=== PATIENT | female | born 1960 | race Caucasian/White ===

== ENCOUNTER 2022-03-26 16:37 | Emergency (ER) | payer BC, SELFPAY ==
--- NOTE | ~2022-03-26 | XR_ITS ---
EXAM: XR knee RT min 4V DATE: 03/26/2022 17:14 HISTORY: TWISTED RT KNEE, PAIN LATERAL AND MEDIAL . COMPARISON: None available. FINDINGS: Normal mineralization. No fracture or dislocation. No lytic or blastic lesion. Severe tric ompartmental right knee osteoarthritis. Small right knee effusion. No erosion or periosteal change. S oft tissues within normal limits. IMPRESSION: No acute osseous finding in the right knee. Reviewed, dictated and finalized at location K.
[2022-03-26 16:49] VITALS: BP 141/87; PULSE 92; RESP 18; TEMP 36.4; O2SAT 96
--- NOTE | 2022-03-26 16:53 | ED.EXTPRO ---
HPI - Extremity Problem General Chief complaint: Extremity Problem,Nontraumatic Stated complaint: Right Knee and Leg Time Seen by Provider: 03/26/22 16:53 Source: patient Mode of arrival: ambulatory Limitations: no limitations History of Present Illness HPI Narrative: 61 yo F presents with pain to R knee, lateral aspect. Ambulatory with limp. Pt states she was walking through parking lot at work and twisted R knee. States hx of knee pain, arthritis. Has been told she needs knee replacement. Pt moved here approx. 1 yr ago. Does not have PCP or ortho here. Requesting x-ray of R knee. all systems reviewed and negative except as noted above. Related Data Allergies Allergy/AdvReac Type Severity Reaction Status Date / Time hydrocodone Allergy Itching Verified 03/26/22 17:02 Review of Systems Review of Systems: CONSTITUTIONAL: Denies fever, chills, or sweats. EYES: Denies visual changes, redness, or discharge. ENT: Denies rhinorrhea, congestion, sore throat, or otalgia. CARDIOVASCULAR: Denies chest pain, palpitations, or edema. RESPIRATORY: Denies cough or dyspnea. GASTROINTESTINAL: Denies abdominal pain, nausea, vomiting, or diarrhea. GENITOURINARY: Denies dysuria or hematuria. SKIN: Denies rash or itching. MUSCULOSKELETAL: Denies back pain or myalgia. Reports pain and swelling to right knee. NEUROLOGIC: Denies headache, numbness, or weakness. PSYCHIATRIC: Denies anxiety or depression. All other systems reviewed are negative, except as documented in HPI. PMFSH Comments At time of signature, agree with nursing past medical, surgical, social and family history. There is no relevant family history pertinent to the presenting complaint. Exam Narrative: GENERAL: This is a well-nourished, well-developed patient, in no apparent distress. HEAD: normocephalic, atraumatic. EYES: PERRL. Sclera clear/white. Vision is grossly intact. EARS: External ears normal NOSE: External nose normal NECK: Neck supple, non-tender without lymphadenopathy, masses or thyromegaly. CARDIOVASCULAR: Regular rate and rhythm without murmurs, gallops, or rubs. RESPIRATORY: Clear to auscultation. Breath sounds equal bilaterally. No wheezes, rales, or rhonchi. SKIN: warm, Dry, intact with no suspicious lesions or rash, good texture and turgor. NEURO: awake, alert, and oriented to person, place and time. There were no obvious focal neurologic abnormalities. EXTREMITIES: Tenderness to R knee, lateral aspect. mild swelling. No instability. Course Course Level of Care: Express Care Visit Vital Signs Vital signs: Vital Signs Temperature 36.4 C L 03/26/22 16:49 Pulse Rate 92 03/26/22 16:49 Respiratory Rate 18 03/26/22 16:49 Blood Pressure 141/87 H 03/26/22 16:49 Pulse Oximetry 96 03/26/22 16:49 Oxygen Delivery Room Air 03/26/22 16:49 Temperature 36.4 C L 03/26/22 16:49 Pulse Rate 92 03/26/22 16:49 Respiratory Rate 18 03/26/22 16:49 Blood Pressure 141/87 H 03/26/22 16:49 Pulse Oximetry 96 03/26/22 16:49 Oxygen Delivery Room Air 03/26/22 16:49 Reviewed MDM - Extremity (Nontraumatic) MDM Narrative Medical decision making narrative: Patient is aware of diagnosis, understands and agrees to treatment plan. Anticipatory guidance given. Patient agrees to follow-up as directed and is aware of reasons to seek care at the emergency department. Portions of this record may have been created with voice recognition software discussed x-ray results with pt. referred to ortho for further evaluation of R knee pain. Imaging Data My impression: agree with radiologist Radiologist's impression: EXAM:? XR knee RT min 4V DATE: 03/26/2022 17:14 HISTORY: TWISTED RT KNEE, PAIN LATERAL AND MEDIAL . COMPARISON:? None available. FINDINGS:? Normal mineralization. No fracture or dislocation. No lytic or blastic lesion. Severe tricompartmental right knee osteoarthritis. Small right knee effusion. No erosion or periosteal acevedo
== END 2022-03-26 17:35 | disposition home or self-care (01) ==
PROVIDERS: Emergency Provider Nurse Practitioner Family
DX: S83.91XA Sprain of unspecified site of right knee, initial encounter (principal); X50.9XXA Other and unspecified overexertion or strenuous movements or postures, initial encounter; M17.11 Unilateral primary osteoarthritis, right knee; Z85.3 Personal history of malignant neoplasm of breast
CPT/HCPCS: 73564; 99203; G0463

== ENCOUNTER 2022-08-17 08:47 | Outpatient (CLI) | payer BC, SELFPAY ==
--- NOTE | ~2022-08-17 | MM_ITS ---
EXAMINATION: MM diagnostic chanelle BI w tera HISTORY: History of left lumpectomy, benign. Screening. TECHNIQUE: ML, MLO and craniocaudal 3-D tomosynthesis images of both breasts were performed and synth etic 2-D images were generated. CAD analysis was submitted and interpreted. COMPARISON: 03/19/2020bilateral diagnostic mammogram, 09/01/2019right diagnostic mammogram 03/05/2018 bilateral screening mammogram BREAST PARENCHYMAL COMPOSITION: The breasts are heterogeneously dense, which may obscure small masses . FINDINGS: Surgical clip is noted in the upper outer left breast. Scattered bilateral benign microcalcifications. No suspicious mass or architectural distortion, malig nant calcification, skin thickening or retraction or significant new or developing density is detecte d. IMPRESSION: 1. No mammographic evidence of malignancy 2. Routine annual mammographic screening is recommended. BI-RADS Category 2: Benign finding(s). Reviewed, dictated and finalized at location A. 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
== END 2022-08-17 08:48 ==
LOC: MICIMG 08:49
PROVIDERS: PCP Internal Medicine; Visit Provider Internal Medicine
DX: Z12.31 Encounter for screening mammogram for malignant neoplasm of breast (principal); Z90.12 Acquired absence of left breast and nipple; R92.8 Other abnormal and inconclusive findings on diagnostic imaging of breast
CPT/HCPCS: 77062; 77066; G0279

== ENCOUNTER 2022-08-19 13:19 | Emergency (ER) | payer BC, SELFPAY ==
[2022-08-19 14:52] VITALS: BP 149/81; PULSE 77; RESP 18; TEMP 36.5; O2SAT 97
--- NOTE | 2022-08-19 16:21 | ED.GENADULT ---
HPI - General Adult General Chief complaint: Upper Respiratory Infection Stated complaint: uri Time Seen by Provider: 08/19/22 16:21 Source: patient Mode of arrival: ambulatory Limitations: no limitations History of Present Illness HPI narrative: 61-year-old female patient presents to the [facility] with complaints of upper respiratory infection symptoms. Patient states she has had symptoms since August 11. Patient states she has had a fever for about 2 days that finally broke when she 1st started having symptoms along with congestion, cough, chills, body aches and runny nose. Patient states symptoms have mostly resolved but continued to have a cough and some chest congestion. Patient states she is coughing up green sputum at times. Denies any fevers, body aches or chills at this time. Patient states she has been taking [id number]-tznjkde DayQuil and NyQuil for her symptoms. Denies smoking Related Data Allergies Allergy/AdvReac Type Severity Reaction Status Date / Time hydrocodone Allergy Itching Verified 08/19/22 15:16 Review of Systems Review of Systems: CONSTITUTIONAL: Positive fever, body aches and chills, or sweats. EYES: Denies visual changes, redness, or discharge. ENT: Positive rhinorrhea, congestion, denies sore throat, or otalgia. CARDIOVASCULAR: Denies chest pain, palpitations, or edema. RESPIRATORY: Positive cough, denies dyspnea. GASTROINTESTINAL: Denies abdominal pain, nausea, vomiting, or diarrhea. GENITOURINARY: Denies dysuria or hematuria. SKIN: Denies rash or itching. MUSCULOSKELETAL: Denies back pain, joint pain, or myalgia. NEUROLOGIC: Denies headache, numbness, or weakness. PSYCHIATRIC: Denies anxiety or depression. [facility] Past Medical History Medical History Cataract Osteoarthritis Surgical History Surgical History H/O mastectomy History of hysterectomy History of lung surgery Social History Social History Smoking status: Never smoker Alcohol intake: current Substance use: never Comments At the time of my signature I agree with nursing past medical history, surgical, social, and family history. There is no relevant family history pertinent to the presenting complaint. Exam Narrative: GENERAL: Well-appearing, well-nourished, and in no acute distress. HEAD: Normocephalic, atraumatic. EYES: PERRLA and EOMI. ENT: Nares with erythema edema noted bilaterally, no rhinorrhea or epistaxis. Mucous membranes moist. Posterior pharynx with no erythema, tonsillar enlargement, exudates or lesions present. Bilateral TMs are clear no erythema or foreign bodies the canal. NECK: Supple. No lymphadenopathy CHEST: Clear to auscultation. No respiratory distress. Patient able to talk in clear complete sentences. HEART: Regular rate and rhythm. No murmur heard. Normal peripheral pulses. ABDOMEN: Soft, nontender, nondistended, normal active bowel sounds. EXTREMITIES: Normal range of motion. No edema. SKIN: Warm, dry, no rash. NEURO: No focal deficits. Alert and oriented x3. Course Course Level of Care: Express Care Visit Vital Signs Vital signs: Vital Signs Temperature 36.5 C 08/19/22 14:52 Pulse Rate 77 08/19/22 14:52 Respiratory Rate 18 08/19/22 14:52 Blood Pressure 149/81 H 08/19/22 14:52 Pulse Oximetry 97 08/19/22 14:52 Oxygen Delivery Room Air 08/19/22 14:52 Temperature 36.5 C 08/19/22 14:52 Pulse Rate 77 08/19/22 14:52 Respiratory Rate 18 08/19/22 14:52 Blood Pressure 149/81 H 08/19/22 14:52 Pulse Oximetry 97 08/19/22 14:52 Oxygen Delivery Room Air 08/19/22 14:52 Vital signs reviewed. The patient has been informed that they may have pre-hypertension or Hypertension based on a BP reading in the department. I recommend that the patient call the primary care provider listed on their
== END 2022-08-19 16:37 | disposition home or self-care (01) ==
PROVIDERS: Emergency Provider Nurse Practitioner Family
DX: J20.8 Acute bronchitis due to other specified organisms (principal); H26.9 Unspecified cataract; M19.90 Unspecified osteoarthritis, unspecified site; Z85.3 Personal history of malignant neoplasm of breast; Z90.10 Acquired absence of unspecified breast and nipple
CPT/HCPCS: 99213; G0463

== ENCOUNTER 2022-09-02 12:21 | Outpatient (CLI) | payer BC, SELFPAY ==
[2022-09-02 13:16] LABS: Hematocrit 45.3 % (37.0-47.0); Hemoglobin 14.3 g/dL (12.0-15.0); Mean Corpuscular HGB Conc 31.6 g/dl (32-36); Mean Corpuscular Volume 95.2 fl (80-100); Mean Platelet Volume 9.8 fl (7.4-10.4); Platelet Count Result 229 k/mm3 (150-375); Red Blood Count 4.76 M/mm3 (4.2-5.4); Red Cell Distribution Width 12.6 % (11.5-14.5); White Blood Count 6.7 K/mm3 (4.5-10.0)
[2022-09-02 13:27] LABS: Alanine Aminotransferase 29 U/L (6-35); Albumin Level 4.4 g/dL (3.5-5.1); Alkaline Phosphatase 60 U/L (38-126); Anion Gap 6 mmol/L (8-16); Aspartate Amino Transferase 24 U/L (14-36); Bilirubin,Total 0.8 mg/dL (0.2-1.3); Blood Urea Nitrogen 15 mg/dL (7-17); Calcium 8.9 mg/dL (8.4-10.2); Carbon Dioxide 30 mmol/L (22-30); Chloride 105 mmol/L (98-107); Cholesterol 182 mg/dL (0-200); Estimated Glomerular Filt Rate > 60; Glucose 108 mg/dL (65-110); HDL Direct 55 mg/dL; Sodium 141 mmol/L (137-145); Triglycerides 59 mg/dL (<150)
[2022-09-02 13:37] LABS: LDL Cholesterol Direct 95 mg/dL
[2022-09-02 13:54] LABS: Appearance Urine Clear (Clear); Bilirubin Urine Negative (Negative); Blood Urine Negative (Negative); Color Urine Yellow (Yellow); Glucose Urine UA Negative (Negative); Ketones Urine Negative (Negative); Leukocyte Esterase Ur Negative LEU/UL (NEGATIVE); Nitrate Urine Negative (Negative); Protein Urine Negative (Negative); Urobilinogen Urine 0.2 mg/dL (<2.0)
[2022-09-02 14:34] LABS: Add Urine Microscopic? NO
[2022-09-02 17:42] LABS: Hemoglobin A1C 5.8 % (<5.7)
[2022-09-07 19:45] LABS: Vitamin D 1,25 (OH)2 Total 37 pg/mL (18-72); Vitamin D2 1,25 (OH)2 <8 pg/mL; Vitamin D3 1,25 (OH)2 37 pg/mL
== END 2022-09-02 12:22 | disposition home or self-care (01) ==
LOC: ANHLAB 12:22
PROVIDERS: PCP Internal Medicine; Visit Provider Internal Medicine
DX: Z00.00 Encounter for general adult medical examination without abnormal findings (principal); R10.9 Unspecified abdominal pain; L02.91 Cutaneous abscess, unspecified; N95.1 Menopausal and female climacteric states; E66.9 Obesity, unspecified
CPT/HCPCS: 36415; 80053; 80061; 81003; 82652; 83036; 84443; 85027

== ENCOUNTER 2023-07-20 09:31 | Outpatient (CLI) | payer BC, SELFPAY ==
--- NOTE | 2023-07-20 10:28 | ECG_ITS ---
Measurements Intervals [place] Rate: 68 P: 22 AR: 139 QRS: -12 QRSD: 89 T: 15 QT: 388 QTc: 414 Interpretive Statements SINUS RHYTHM NONSPECIFIC T-WAVE ABNORMALITY BORDERLINE ECG NO PREVIOUS ECG AVAILABLE FOR COMPARISON Electronically Signed On 07-20-2023 13:30:52 BOILER SETTER by Chinedu Willis M.D.
[2023-07-20 10:55] LABS: Basophils Percent Auto 0.5 % (0.2-1.2); Eosinophils Absolute Auto 0.1 K/mm3 (0-0.3); Hematocrit 46.8 % (37.0-47.0); Hemoglobin 14.7 g/dL (12.0-15.0); Immature Granulocyte Absolute 0.02 K/mm3 (0.00-0.031); Immature Granulocyte Percent A 0.4 % (0-0.5); Mean Corpuscular HGB Conc 31.4 g/dl (32-36); Mean Corpuscular Hemoglobin 30.4 pg (26-34); Mean Corpuscular Volume 96.9 fl (80-100); Mean Platelet Volume 9.4 fl (7.4-10.4); Monocytes Absolute Auto 0.5 K/mm3 (0.1-0.6); Monocytes Percent Auto 8.6 % (2.6-8.5); Neutrophils Absolute Auto 3.6 K/mm3 (1.3-6.7); Neutrophils Percent Auto 63.5 % (45.5-73.1); Platelet Count Result 216 k/mm3 (150-375); Red Blood Count 4.83 M/mm3 (4.2-5.4); Red Cell Distribution Width 12.4 % (11.5-14.5); White Blood Count 5.6 K/mm3 (4.5-10.0)
[2023-07-20 11:08] LABS: Albumin Level 4.7 g/dL (3.5-5.1); Anion Gap 7 mmol/L (8-16); Blood Urea Nitrogen 9 mg/dL (7-17); Calcium 9.4 mg/dL (8.4-10.2); Carbon Dioxide 29 mmol/L (22-30); Chloride 104 mmol/L (98-107); Estimated Glomerular Filt Rate > 60; Glucose 114 mg/dL (65-110); Potassium 4.2 mmol/L (3.4-5.0); Sodium 140 mmol/L (137-145)
[2023-07-20 11:17] LABS: Urine Cotinine NEGATIVE
[2023-07-20 11:47] LABS: Hemoglobin A1C 5.3 % (<5.7)
== END 2023-07-20 09:32 | disposition home or self-care (01) ==
LOC: ANHSURGERY 09:35
PROVIDERS: PCP Family Medicine; Visit Provider Orthopaedic Surgery
DX: M17.11 Unilateral primary osteoarthritis, right knee (principal); Z01.818 Encounter for other preprocedural examination
CPT/HCPCS: 80048; 80307; 82040; 83036; 85025; 87081; 93005

== ENCOUNTER 2023-08-14 16:12 | Emergency (ER) | payer SELFPAY ==
[2023-08-14 16:27] VITALS: BP 108/66; PULSE 86; RESP 16; TEMP 36.8; O2SAT 97
--- NOTE | 2023-08-14 17:10 | ED.EYEPROB ---
HPI - Eye Problem General Chief complaint: Eye Problems Stated complaint: left eye red Time Seen by Provider: 08/14/23 17:11 Source: patient Mode of arrival: ambulatory Limitations: no limitations History of Present Illness HPI Narrative: 62-year-old female presents with complaint of redness to left eye. Recently finished antibiotics for sinus infection. Reports that she has had a lot of sneezing, blowing nose over the past few days. No vision changes but reports cataract surgery to bilateral eyes. All systems reviewed and negative except as noted above. Related Data Home Medications Medication Instructions Recorded Confirmed diclofenac potassium 50 mg tablet 50 mg PO BID 08/02/23 08/14/23 Allergies Allergy/AdvReac Type Severity Reaction Status Date / Time hydrocodone Allergy Itching Verified 08/14/23 16:38 Review of Systems Review of Systems: CONSTITUTIONAL: Denies fever, chills, or sweats. EYES: Denies visual changes Reports left eye redness. Denies discharge. ENT: Denies rhinorrhea, congestion, sore throat, or otalgia. CARDIOVASCULAR: Denies chest pain, palpitations, or edema. RESPIRATORY: Denies cough or dyspnea. GASTROINTESTINAL: Denies abdominal pain, nausea, vomiting, or diarrhea. GENITOURINARY: Denies dysuria or hematuria. SKIN: Denies rash or itching. MUSCULOSKELETAL: Denies back pain, joint pain, or myalgia. NEUROLOGIC: Denies headache, numbness, or weakness. PSYCHIATRIC: Denies anxiety or depression. All other systems reviewed are negative, except as documented in HPI. [facility] Past Medical History Medical History Bronchial asthma Cataract Degenerative arthritis of knee, bilateral Osteoarthritis Surgical History Surgical History H/O left breast biopsy 2020 History of cataract extraction History of ear surgery History of hand surgery left hand ganglion cyst removal History of hysterectomy History of knee surgery bilateral knee scopes History of lung surgery Family History Family History Sibling Cancer Father Heart disease Social History Social History Smoking packs per day: 1.5 Smoking cigarettes per day: 30.0 Years smoked: 30 Smoking pack-years: 45.00 Smoking status: Former smoker Tobacco type: cigarettes Smoking end date: 08/20/07 Additional smoking assessment comments: DENIES ANY FORM OF TOBACCO USE Alcohol intake: current Drinks per week: 42 Alcohol use details: BEER Substance use: never Lack of Transportation: No Lack of Food: Never True Current Housing: I Have Housing Concerned About Future Housing: No Difficulty Paying Gas/Electric Bills: No Difficulty Paying for Meds: No Currently Unemployed: YES Education: High School Diploma/GED Difficulty w/ Childcare or Family Care: No Living arrangements: with family Occupation/Education: occupation 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 There is no relevant family history pertinent to the presenting complaint. Exam Narrative: GENERAL: This is a well-nourished, well-developed patient, in no apparent distress. HEAD: normocephalic, atraumatic. EYES: PERRL. right eye normal. Subconjunctival hemorrhage to medial aspect of left sclera. Vision is grossly intact. EARS: External ears normal NOSE: External nose normal NECK: Neck supple, non-tender without lymphadenopathy, masses or thyromegaly. CARDIOVASCULAR: Regular rate and rhythm without m
== END 2023-08-14 17:23 | disposition home or self-care (01) ==
PROVIDERS: Emergency Provider Nurse Practitioner Family; PCP Family Medicine
DX: H11.32 Conjunctival hemorrhage, left eye (principal); Z87.891 Personal history of nicotine dependence
CPT/HCPCS: 99212; G0463

== ENCOUNTER 2024-02-29 09:49 | Outpatient (CLI) | payer MEDICARE, SELFPAY ==
[2024-02-29 12:36] LABS: Basophils Absolute Auto 0.1 K/mm3 (0.0-0.1); Basophils Percent Auto 0.8 % (0.2-1.2); Eosinophils Absolute Auto 0.1 K/mm3 (0-0.3); Eosinophils Percent Auto 1.8 % (0-4.4); Hematocrit 46.8 % (37.0-47.0); Hemoglobin 14.9 g/dL (12.0-15.0); Immature Granulocyte Absolute 0.04 K/mm3 (0.00-0.031); Immature Granulocyte Percent A 0.6 % (0-0.5); Lymphocytes Absolute Auto 1.73 K/mm3 (0.9-3.2); Lymphocytes Percent Auto 24.1 % (18.3-44.2); Mean Corpuscular HGB Conc 31.8 g/dl (32-36); Mean Corpuscular Volume 97.3 fl (80-100); Monocytes Absolute Auto 0.9 K/mm3 (0.1-0.6); Neutrophils Absolute Auto 4.4 K/mm3 (1.3-6.7); Neutrophils Percent Auto 60.7 % (45.5-73.1); Platelet Count Result 237 k/mm3 (150-375); Red Blood Count 4.81 M/mm3 (4.2-5.4); Red Cell Distribution Width 12.5 % (11.5-14.5); White Blood Count 7.2 K/mm3 (4.5-10.0)
[2024-02-29 12:48] LABS: Hemoglobin A1C 5.7 % (<5.7)
[2024-02-29 12:49] LABS: Urine Cotinine NEGATIVE
[2024-02-29 12:53] LABS: Albumin Level 4.7 g/dL (3.5-5.1); Anion Gap 10 mmol/L (4-12); Blood Urea Nitrogen 11 mg/dL (7-17); Calcium 9.3 mg/dL (8.4-10.2); Carbon Dioxide 26 mmol/L (22-30); Chloride 103 mmol/L (98-107); Estimated Glomerular Filt Rate > 60; Glucose 100 mg/dL (65-110); Potassium 3.9 mmol/L (3.4-5.0); Sodium 139 mmol/L (137-145)
== END 2024-02-29 09:50 | disposition home or self-care (01) ==
LOC: ANHSURGERY 09:55
PROVIDERS: PCP Family Medicine; Visit Provider Orthopaedic Surgery
DX: M17.0 Bilateral primary osteoarthritis of knee (principal); Z01.818 Encounter for other preprocedural examination
CPT/HCPCS: 80048; 80307; 82040; 83036; 85025; 86850; 86900; 86901; 87081

== ENCOUNTER 2024-03-10 06:40 | Outpatient (CLI) | payer MEDICARE, SELFPAY ==
--- NOTE | ~2024-03-10 | NM_ITS ---
EXAMINATION: NM rudolph stress w perfusion DATE: 03/10/2024 09:57 CDT INDICATION: Dyspnea TECHNIQUE: Rest images were obtained following intravenous administration of 10.3 mCi Tc99m tetrofosm in (Myoview). The patient was infused intravenously with Lexiscan (regadenoson). Then, 32.7 mCi Tc99m tetrofosmin (Myoview) was administered intravenously, and stress images were obtained. Data was ernesto nstructed into short axis and horizontal and vertical long axis SPECT images. Gated SPECT images were also obtained. COMPARISON: None. FINDINGS: There is no definite reversible or fixed perfusion abnormality to suggest ischemia or infar ction. There is no segmental wall motion abnormality. Left ventricular ejection fraction measures 6 3%. IMPRESSION: 1. No definite ischemia or infarct. 2. Normal left ventricular ejection fraction measuring 63%. Reviewed, dictated and finalized at location B.
--- NOTE | 2024-03-10 07:47 | EST_ITS ---
Patient Info Name: Yasmeen Nguyen Age: 63 years : 1960 Gender: Female Ht: 62 in Wt: 196 lbs BSA: 2.01 m2 HR: 62 bpm BP: 119 / 80 mmHg Heart Rhythm: Sinus Rhythm Exam Date: 03/10/2024 8:25 AM Exam Location: Echo Lab Patient Status: Outpatient Admit Date: 03/10/2024 Staff Ordering Physician: Palmer Mtz DO Attending Provider: Palmer Mtz DO Exercise Technologist: Nydia Sharma CT Exercise Physician: Palmer Mtz DO Exam Type: CA stress rudolph w NM Study Info Indications Z01.810 - Encounter for preprocedural cardiovascular examination R06.09 - Other forms of dyspnea A regadenoson stress test was performed. Summary 1. 1. Negative lexiscan stress test for ischemic ST changes by ECG criteria. 2. 2. Stable hemodynamics throughout the test. 3. 3. Nuclear scan to follow and will be reported separately. Please correlate with it. 4. 4. Patient informed of the above results. Protocol: Lexiscan Stress ECG Details Stage: REST Duration (min): 1 min : 4 sec HR (bpm): 69 SBP (mmHg): 119 DBP (mmHg): 80 Stage: REST Duration (min): 8 min : 20 sec HR (bpm): 70 SBP (mmHg): 119 DBP (mmHg): 80 Stage: STAGE 1 Duration (min): 0 min : 59 sec HR (bpm): 78 SBP (mmHg): 119 DBP (mmHg): 80 Stage: RECOVERY Duration (min): 1 min : 0 sec HR (bpm): 80 SBP (mmHg): 119 DBP (mmHg): 80 Stage: RECOVERY Duration (min): 2 min : 0 sec HR (bpm): 70 SBP (mmHg): 102 DBP (mmHg): 68 Stage: RECOVERY Duration (min): 3 min : 0 sec HR (bpm): 67 SBP (mmHg): 102 DBP (mmHg): 68 Stage: RECOVERY Duration (min): 3 min : 46 sec HR (bpm): 70 SBP (mmHg): 102 DBP (mmHg): 68 Rest HR: 70 bpm Peak HR: 85 bpm Rest Sys BP: 119 mmHg Peak Sys BP: 102 mmHg Max Pred HR: 155 bpm % Max Pred HR: 55 % Target HR: 132 bpm Max RPP: 8,670 bpm*mmHg Termination Reason: Completed protocol Cardiac Symptoms: Shortness of breath Total Time: 1 min : 0 sec Rest Coates BP: 80 mmHg Peak Coates BP: 68 mmHg Total Dose: 0.4 mg Resting ECG Sinus rhythm. Stress ECG No ST changes. Arrhythmias None. Report Signatures
== END 2024-03-10 06:41 | disposition home or self-care (01) ==
PROVIDERS: PCP Family Medicine; Visit Provider Internal Medicine Cardiovascular Disease
DX: R06.09 Other forms of dyspnea (principal)
CPT/HCPCS: 78452; 93017; A9502; J2785

== ENCOUNTER 2024-03-13 01:44 | Day surgery (SDC) | payer MEDICARE, SELFPAY ==
[2024-02-29 10:14] VITALS: BP 136/89; PULSE 75; RESP 16; TEMP 36.7; O2SAT 98; BMI 36.6
--- NOTE | 2024-02-29 10:44 | PC.NURSE ---
Report to the Outpatient Waiting Room, entrance under the green pavilion located off [facility], at time ___06:00AM____ on date __03/13/24 . Planned Procedure Time: ____07:30AM____. Time changes happen often and if your time is changed the preop area will call you the afternoon before. - You and your visitor will be asked to self-screen and do not enter if you have any COVID symptoms. - A mask is optional within the hospital at this time. Patients may have clear liquids (water, carbonated beverages, clear teas, apple juice) until 3 hours prior to surgery with a maximum of 20 ounces. - No food from midnight until time of surgery Take the following medications with a SIP of water the morning of surgery: __NONE DO NOT STOP ANY OF YOUR OTHER PRESCRIPTION MEDICATIONS PRIOR TO SURGERY ?EXCEPT THE FOLLOWING Medications to discontinue per physician ____All Vitamins and supplements & NSAIDS ( ibuprofen) [address] Cunningham. Date to take last dose____03/05/24 Please no make-up, nail micronesian, hairspray, perfume, deodorant, or body powder the day of surgery. No jewelry (including any body piercings) or valuables the day of surgery, leave them at home. Please take a shower or bath the night before, or the morning of, surgery with an antibacterial soap. Wear comfortable, loose fitting clothing. . - Jewelry must be removed prior to entering the operating room. Rings and piercings that are not removed may be cut off. - The hospital will not accept responsibility for valuables. - Please leave all valuables, including medications, at home the day of surgery. If you are going home after surgery, a licensed route delivery driver must drive you home. - NO public transportation without another adult if you receive anesthesia. - We recommend that an adult stay with you for 24 hours following discharge. - We also recommend that you do not drive, make important decision, drink alcoholic beverages, or take any drugs that were not prescribed by your health care provider for at least 24 hours after your discharge time. Follow any additional instructions given to you from your surgeon. If you or anyone in your household have experienced Covid symptoms in the past week, please notify your surgeon or the nurse liaison at the phone number below for possible testing. Telephone instructions given to ___Patient and asked if any additional questions and then verbalized understanding. Patient advised to call surgeon office or pre surgery nurse liaison [phone] if any additional questions.
--- NOTE | 2024-03-12 08:20 | PM.IMHP ---
H&P: HPI History of Present Illness Date/Time: 03/12/24 08:20 Chief Complaint: Bilateral knee DJD Narrative: 63-year-old female patient of Dr. Banad who presents today for a right total knee arthroplasty and cortisone injection in the left knee. She has been having symptoms in her knees for years. She has severe [id number]-uk-gyej medial compartment osteoarthritis in both knees. She takes ibuprofen 600 mg every morning and occasionally in the evening. Unfortunately she continues to have symptoms in her knees. She has had cortisone injections in the knees last 1 was in October of this year which only gave her limited improvement of her symptoms. At this point patient feels she is ready proceed with surgery rather continue nonsurgical treatment. She has had arthroscopic surgery in both knees in the past. Review of Systems Review of Systems: All systems reviewed & are unremarkable except as noted in HPI and below PMFSH Past Medical History Medical History Bronchial asthma Cataract Degenerative arthritis of knee, bilateral Osteoarthritis Surgical History Surgical History H/O left breast biopsy 2020 History of cataract extraction History of ear surgery History of hand surgery left hand ganglion cyst removal History of hysterectomy History of knee surgery bilateral knee scopes History of lung surgery Family History Family History Sibling Cancer Father Heart disease Social History Social History Smoking packs per day: 1.5 Smoking cigarettes per day: 30.0 Years smoked: 30 Smoking pack-years: 45.00 Smoking status: Former smoker Tobacco type: cigarettes Smoking end date: 02/18/08 Additional smoking assessment comments: DENIES ANY FORM OF TOBACCO USE Alcohol intake: current Drinks per week: 42 Alcohol use details: BEER Substance use: never Do You Feel Safe in your Home?: Yes Lack of Transportation: No Lack of Food: Never True Current Housing: I Have Housing Concerned About Future Housing: No Difficulty Paying Gas/Electric Bills: No Difficulty Paying for Meds: No Currently Unemployed: No Education: High School Diploma/GED Difficulty w/ Childcare or Family Care: No Living arrangements: with family Additional living arrangements comments: Lives with boyfriend and his mother Occupation/Education: occupation 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 Adult 1 tablet PO DAILY 02/29/24 02/29/24 History omeprazole 20 mg capsule,delayed 20 mg PO DAILY 02/29/24 02/29/24 History release Allergies Allergy/AdvReac Type Severity Reaction Status Date / Time hydrocodone Allergy Itching & Verified 03/03/24 12:49 SOB Exam Narrative: 63-year-old female very alert pleasant. Her BMI is 36.6. She has a mild limp. Right hip has full range of motion without discomfort, negative Stinchfield maneuver. She has a [id number] effusion the right knee. Range of motion is from 7-120 degrees. She has some degree of symptoms of pain with full flexion and extension. Moderately severe tenderness over the medial joint line. Moderate tenderness over the pes bursa. Moderate pain with patellofemoral grind. She has normal quad strength. Normal sensation right lower extremity. No swelling lower extremity. 2+ posterior artery pulse. Resp: Auscultation: clear to auscultation
[2024-03-13] VITALS (16 sets, daily range): BP systolic 106–131; BP diastolic 62–82; PULSE 75–95; RESP 11–18; TEMP 35.8–36.3; O2SAT 92–97
--- NOTE | ~2024-03-13 | XR_ITS ---
EXAMINATION: [id number] DATE: 03/13/2024 10:57 CDT INDICATION: Right total knee arthroplasty TECHNIQUE: 2 views right knee FINDINGS: There is a right total knee arthroplasty in expected position. Subcutaneous gas with fluid and air in the joint are consistent with recent surgery. No evidence of periprosthetic fracture. IMPRESSION: 1. Recent right total knee arthroplasty. Reviewed, dictated and finalized at location B.
[2024-03-13] MEDS: ACETAMINOPHEN 500 MG TABLET 1000 MG PO (07:00)
[2024-03-13] MEDS: VANCOMYCIN 1,250 MG/NS 250 ML BAG 166.67 MG IVPB (07:00)
[2024-03-13] MEDS: TRANEXAMIC ACID 1,000MG/ISO100 1,000 MG/100 ML BAG 200 MG IVPB (07:00)
[2024-03-13] MEDS: LACTATED RINGERS 1,000 ML 30 ML IV CONT ×2 (07:00→10:43)
--- NOTE | 2024-03-13 07:14 | WPDHPUPDATE1 ---
History and Physical Update Update Date/Time: 03/13/24 07:14 History and Physical has been reviewed, including an updated exam of the patient. There are NO changes in the patient's condition. Risks, benefits, and alternatives have been discussed and questions answered. Patient agrees to proceed with procedure.
--- NOTE | 2024-03-13 07:14 | WPDANESEPPF ---
Anes - Initial Pre Proc Eval Procedure: Operation Date: 03/13/24 07:30 Proposed Procedures p Right Total Knee Arthroplasty, Cortisone Injection Left Knee - Rome Prince MD Date/Time: 03/13/24 07:14 Surgeon: Rome Prince MD Pre Op Diagnosis: oa bilateral knee's Patient Data Age: 63 Gender: F Height: 1.57 m Weight: 90 kg Last Vital Signs Temp 97.3 F L 03/13/24 07:00 Pulse 75 03/13/24 07:00 Resp 14 03/13/24 07:00 BP 120/79 03/13/24 07:00 Pulse Ox 97 03/13/24 07:00 O2 Del Method Room Air 03/13/24 07:00 Allergies Allergy/AdvReac Type Severity Reaction Status Date / Time hydrocodone Allergy Itching & Verified 03/13/24 07:14 SOB Home Medications Medication Instructions Recorded Confirmed Type ibuprofen 200 mg capsule 600 mg PO TID PRN Pain 02/13/24 02/29/24 History M.V.I. Adult 1 tablet PO DAILY 02/29/24 02/29/24 History omeprazole 20 mg capsule,delayed 20 mg PO DAILY 02/29/24 02/29/24 History release Patient hx anesthesia problems: none Family hx anesthesia problems: none Results Review: All pre-operative results and documents have been reviewed as part of the pre-operative evaluation. [facility] Past Medical History Medical History Bronchial asthma Cataract Degenerative arthritis of knee, bilateral Osteoarthritis Surgical History Surgical History H/O left breast biopsy 2020 History of cataract extraction History of ear surgery History of hand surgery left hand ganglion cyst removal History of hysterectomy History of knee surgery bilateral knee scopes History of lung surgery Family History Family History Sibling Cancer Father Heart disease Social History Social History Smoking packs per day: 1.5 Smoking cigarettes per day: 30.0 Years smoked: 30 Smoking pack-years: 45.00 Smoking status: Former smoker Tobacco type: cigarettes Smoking end date: 02/18/08 Additional smoking assessment comments: DENIES ANY FORM OF TOBACCO USE Alcohol intake: current Drinks per week: 42 Alcohol use details: BEER Substance use: never Do You Feel Safe in your Home?: Yes Lack of Transportation: No Lack of Food: Never True Current Housing: I Have Housing Concerned About Future Housing: No Difficulty Paying Gas/Electric Bills: No Difficulty Paying for Meds: No Currently Unemployed: No Education: High School Diploma/GED Difficulty w/ Childcare or Family Care: No Living arrangements: with family Additional living arrangements comments: Lives with boyfriend and his mother Occupation/Education: occupation Additional occupation/education comments: [employer] Gender identity (if verbalized by the patient): Female Sexual Orientation (if Verbalized by the Patient): Straight or Heterosexual Spiritual care concerns: No Anes - Eval Final PreProcedure Day of Procedure 03/13/24 07:14 Patient weight: obese Heart: regular rate and rhythm Lungs: clear to auscultation Airway: Mallampati scale class II Neurological: alert and oriented Last oral intake: >/= 8 hours ASA classification: III Emergent: no Anesthetic plan: proceed Anesthesia type and monitoring: general ETT and standard monitoring Results Review: All pre-operative results and documents have been reviewed as part of the pre-operative evaluation. Informed Consent: The patient's anesthetic plan and its attendant risks and benefits were discussed with the patient/family/POA. Questions were solicited and answers provided to the satisfaction of the patient/family/POA.
[2024-03-13] MEDS: ceFAZolin 2 GM/D5W 50 ML 2 GM/50 ML BAG IVPB ×2 (07:35→15:56)
[2024-03-13] MEDS: ceFAZolin SODIUM 1 GM VIAL 3 GM IRRIGATION (07:35)
[2024-03-13] MEDS: SODIUM CHLORIDE 0.9% IV 38.7 ML, ROPivacaine HCL 1% 200 MG, KETOROLAC INJ (*BKC) 15 MG,... INFILTRATE (07:35)
[2024-03-13] MEDS: methylPREDNISolone ACETATE 80 MG/ML VIAL IM (07:40)
[2024-03-13] MEDS: LIDOCAINE HCL 1% LOCAL INJ 10 ML VIAL 4 ML INFILTRATE (07:40)
[2024-03-13] MEDS: GENTAMICIN BONE CEMENT REFOBACIN 1 EACH TOPICAL (09:40)
[2024-03-13] MEDS: ceFAZolin SODIUM 1 GM VIAL 2 GM IV PUSH (09:49)
[2024-03-13] MEDS: TRANEXAMIC ACID 1,000 MG/10 ML AMPUL 1000 MG IV PUSH (09:49)
[2024-03-13] MEDS: KETOROLAC 15 MG/ML VIAL (*BKC) IV PUSH ×3 (09:51→17:27)
--- NOTE | 2024-03-13 10:35 | W.PM.PROC2 ---
Procedure Note - Detailed Date of Procedure 03/13/24 Pre-op Diagnosis oa bilateral knee's Post-op Diagnosis Same Procedure Performed 1. Cortisone injection left knee 2. Right total knee arthroplasty Surgeon Rome Prince MD Director Of Science Alonso Anesthesia General Description of Procedure Patient was brought to the operating room and general anesthesia was administered. She received 2 g of Ancef weight based vancomycin and 1 g of tranexamic acid preoperatively. The left knee was prepped with ChloraPrep and 80 mg of Depo-Medrol and 4 cc 1% lidocaine were injected through a lateral parapatellar approach without difficulty. The right knee was prepped draped usual fashion. Under anesthesia she had only about a 3 degree flexion contracture. She had medial pseudolaxity. The right knee was prepped draped usual fashion. Limb was exsanguinated tourniquet elevated to 300 mmHg. A 7 in longitudinal midline incision was used and a vastus medialis splitting approach utilized splitting the vastus medialis at the superior pole patella. Partial excision of infrapatellar fat pad was carried out quadriceps synovectomy performed. The patella had essentially normal cartilage with some rimming osteophytes inferiorly and medially which were trimmed and I felt that the patella was very appropriate for non resurfacing. A conservative lateral facetectomy was performed. A guide sadia was inserted on femoral canal after aspiration of canal contents. I noted that she had significant medial pseudolaxity on valgus stress and her ACL was still little bit intact and she had rather severe bone wear on the medial femoral condyle distally and posteriorly therefore I elected to only remove 8 mm of bone which removed about 8 mm in lateral femoral condyle in about 7 from the medial femoral condyle. Next the tibial plateau was cut. We made a cut about 1 degree of varus and she had significant varus slope to her tibia and made this otherwise perpendicular to the axis of the tibia making a cut mm under the low point of the medial tibial plateau which had severe anteromedial wear. Meniscal remnants were excised the PCL was recessed. Osteophyte from the posterior aspect of medial femoral condyle was prominent and this is removed. Flexion gap was assessed. The medial side accepted a 10 mm spacer at 90? somewhat snug the lateral side 12 mm. The femoral sizing guide was set at 3? of external rotation applied the distal femur and this matched [place] line well. Posterior referencing pinholes were placed at 3? of external rotation. We applied the 65 cutting block which seemed a bit wide but was the appropriate size relative to the anterior cortex of the femur AP and chamfer cuts were made and the 65 was trialed and the cup was appropriate anteriorly but it was too wide. We had ample play for the 10 CR at 90? of flexion. The tibia was sized to a 67. The anterior-posterior dimension of the lateral tibial plateau was very small and even with the 67 and hung over about a mm posteriorly while was flush anteriorly. Proper rotation was set and the tray was punched and we trialed with the 10 . We did not quite have full extension but it seemed close. In flexion there was just a little bit of play with equal amounts medially and laterally. I tried the 11 insert and it was squeaky tight at 90? anterior posterior drawer. I was satisfied that the rotation of the femur was appropriate and we proceeded to downsize the femur using the same posterior referencing pinholes applying the 62.5 cutting block after carefully putting couple of degrees of flexion slope the distal femur so we would not notch this was done with file and the cutting block stabilized additionally with the threaded spring pins and the AP and chamfer cuts were revisited for the 62.5 which fit nicely. The 62.5 head about a mm of overhang laterally and I felt this was acceptable. We trialed again with the 10 insert and the knee came o
--- NOTE | 2024-03-13 10:49 | PM.OP ---
Procedure Note - Brief Procedure Note - Brief Date of procedure: 03/13/24 oa bilateral knee's Procedure performed: Right total knee arthroplasty Surgeon: CELI Macias Findings: 63-year-old female who had would right total knee arthroplasty on 03/13. I was involved in the procedure including including positioning patient on the or table and 1st distribution center assistant through the time of surgery and wound closure. Total time spent was 3-1/2 hours
[2024-03-13] MEDS: fentaNYL CITRATE INJ (*CRX) 100 MCG/2 ML VIAL 25 MCG IV PUSH ×2 (11:17→11:35)
[2024-03-13] MEDS: SODIUM CHLORIDE 0.9% IV 1,000 ML 125 ML IV CONT (13:32)
[2024-03-13] MEDS: oxyCODONE HCL (*CRX) 5 MG TAB IR PO ×3 (13:33→20:57)
[2024-03-13] MEDS: ACETAMINOPHEN 325 MG TABLET 650 MG PO ×3 (13:33→20:57)
--- NOTE | 2024-03-13 13:52 | PC.NURSE ---
This patient, Yasmeen Nguyen, was admitted to [facility] Surg Room 321-02. Patient/family oriented to hospital policies and general routines including ID bracelet, bed and alarms, visiting hours, pain management, procedures, bathroom and other care routines, personal items, smoking policy, room service/diet, and visiting hours. Information on how to activate the Rapid Response Team has been discussed. Patient/Family are encouraged to report perceived risks to care and to ask questions if they do not understand what they are told or what they should do.
[2024-03-13] MEDS: ONDANSETRON INJ 4 MG/2 ML VIAL IV PUSH (15:53)
[2024-03-13] MEDS: SENNA/DOCUSATE SODIUM TABLET 2 TAB PO (15:56)
[2024-03-13] MEDS: VANCOMYCIN 1,000 MG/NS 250 ML 1,000 MG/250 ML BAG 250 MG IVPB (19:45)
[2024-03-13] MEDS: FAMOTIDINE 20 MG TABLET PO (20:57)
[2024-03-14 00:26] VITALS: BP 115/69; PULSE 77; RESP 16; TEMP 36.1; O2SAT 95
[2024-03-14] MEDS: ACETAMINOPHEN 325 MG TABLET 650 MG PO ×5 (00:28→16:37)
[2024-03-14] MEDS: ceFAZolin 2 GM/D5W 50 ML 2 GM/50 ML BAG IVPB ×2 (00:28→09:11)
[2024-03-14] MEDS: oxyCODONE HCL (*CRX) 5 MG TAB IR PO ×5 (00:28→16:37)
[2024-03-14 04:42] VITALS: BP 123/60; PULSE 73; RESP 18; TEMP 35.9; O2SAT 93
[2024-03-14 06:32] LABS: Basophils Percent Auto 0.1 % (0.2-1.2); Hematocrit 36.5 % (37.0-47.0); Hemoglobin 11.8 g/dL (12.0-15.0); Immature Granulocyte Absolute 0.07 K/mm3 (0.00-0.031); Immature Granulocyte Percent A 0.5 % (0-0.5); Lymphocytes Absolute Auto 0.67 K/mm3 (0.9-3.2); Lymphocytes Percent Auto 4.7 % (18.3-44.2); Mean Corpuscular HGB Conc 32.3 g/dl (32-36); Mean Corpuscular Hemoglobin 31.6 pg (26-34); Mean Corpuscular Volume 97.9 fl (80-100); Mean Platelet Volume 9.7 fl (7.4-10.4); Monocytes Percent Auto 7.2 % (2.6-8.5); Neutrophils Absolute Auto 12.4 K/mm3 (1.3-6.7); Neutrophils Percent Auto 87.5 % (45.5-73.1); Platelet Count Result 212 k/mm3 (150-375); Red Blood Count 3.73 M/mm3 (4.2-5.4); Red Cell Distribution Width 12.5 % (11.5-14.5); White Blood Count 14.1 K/mm3 (4.5-10.0)
[2024-03-14 06:42] LABS: Anion Gap 8 mmol/L (4-12); Blood Urea Nitrogen 11 mg/dL (7-17); Calcium 8.8 mg/dL (8.4-10.2); Carbon Dioxide 27 mmol/L (22-30); Chloride 102 mmol/L (98-107); Estimated CRCL calculation 72 ml/min; Estimated Glomerular Filt Rate > 60; Glucose 144 mg/dL (65-110); Potassium 4.1 mmol/L (3.4-5.0); Sodium 137 mmol/L (137-145)
[2024-03-14] MEDS: VANCOMYCIN 1,000 MG/NS 250 ML 1,000 MG/250 ML BAG 250 MG IVPB (06:47)
--- NOTE | 2024-03-14 07:24 | PM.PNORT ---
Subjective Subjective Date/Time Seen: 03/14/24 07:24 Interval history: Postop day 1, patient is alert. Afebrile vital signs are stable. Pain is well controlled. Patient was up walking with physical therapy as well as walking to the restroom over night multiple times. Overall she is comfortable ambulating and requiring minimal help. She has mild swelling in the knee. She had a very small area in the mid dressing from drainage yesterday. The area has not increased overnight. Morning labs are noted. Overall patient is comfortable and doing well. She is eager to go home. We will plan have the patient work with therapy this morning and if she is comfortable she will be discharged home. If she feels she needs additional therapy sessions she will work with therapy this afternoon and then go home later this afternoon. Objective Data Vital Signs Vital Signs: Vital Signs - 24 hr 03/13/24 10:43 03/13/24 10:58 03/13/24 11:00 Temperature 97.2 F L Pulse Rate 86 89 83 Respiratory Rate 14 12 12 Blood Pressure 124/70 123/77 125/78 Pulse Oximetry 96 97 97 Oxygen Delivery Simple Face Mask Simple Face Mask Simple Face Mask Oxygen Flow Rate 8 8 8 03/13/24 11:15 03/13/24 11:24 03/13/24 11:30 Temperature Pulse Rate 85 89 Respiratory Rate 12 11 L Blood Pressure 121/74 106/71 Pulse Oximetry 97 95 92 Oxygen Delivery Simple Face Mask Nasal Cannula Nasal Cannula Oxygen Flow Rate 8 3 3 03/13/24 11:45 03/13/24 12:00 03/13/24 12:13 Temperature Pulse Rate 91 86 89 Respiratory Rate 16 14 12 Blood Pressure 114/75 109/77 114/82 Pulse Oximetry 94 95 92 Oxygen Delivery Nasal Cannula Nasal Cannula Nasal Cannula Oxygen Flow Rate 3 3 3 03/13/24 12:30 03/13/24 12:45 03/13/24 13:15 Temperature 96.5 F L 96.6 F L 96.4 F L Pulse Rate 95 88 86 Respiratory Rate 18 16 16 Blood Pressure 131/75 131/66 115/68 Pulse Oximetry 95 94 95 Oxygen Delivery Oxygen Flow Rate 03/13/24 14:15 03/13/24 14:38 03/13/24 18:02 Temperature 96.5 F L 96.5 F L Pulse Rate 75 85 Respiratory Rate 18 18 Blood Pressure 110/73 113/69 Pulse Oximetry 97 95 Oxygen Delivery Room Air Oxygen Flow Rate 03/13/24 20:00 03/13/24 22:02 03/14/24 00:26 Temperature 97.3 F L 96.9 F L Pulse Rate 91 77 Respiratory Rate 18 16 Blood Pressure 107/62 115/69 Pulse Oximetry 96 95 Oxygen Delivery Room Air Oxygen Flow Rate 03/14/24 04:42 Temperature 96.6 F L Pulse Rate 73 Respiratory Rate 18 Blood Pressure 123/60 Pulse Oximetry 93 Oxygen Delivery Oxygen Flow Rate Intake/Output Intake/Output: Intake & Output 03/11/24 03/12/24 03/13/24 03/14/24 23:59 23:59 23:59 23:59 Intake Total 1360 410 Balance 1360 410 Meds/Results Medications: Active Medications Generic Name Dose Route Start Last Admin Trade Name Freq PRN Reason Stop Dose Admin Acetaminophen 650 mg 03/13/24 12:17 03/14/24 05:26 Acetaminophen 325 Mg Tablet PO 650 mg Q4H GIANLUCA Administration Apixaban 2.5 mg 03/14/24 09:00 Apixaban 2.5 Mg Tablet PO 03/25/24 21:01 Q12HR GIALNUCA Cefdinir 300 mg 03/14/24 09:00 Cefdinir 300 Mg Capsule PO Q12HR GIANLUCA Celecoxib 200 mg 03/14/24 08:00 Celecoxib 200 Mg Capsule PO DAILY@0800 [facility] Diphenhydramine HCl 25 mg 03/13/24 12:17 Diphenhydramine Hcl Inj 50 Mg/Ml Vial IV PUSH Q6H PRN Itching Famotidine 20 mg 03/13/24 21:00 03/13/24 20:57 Famotidine 20 Mg Tablet PO 20 mg Q12HR GIANLUCA Administration Cefazolin Sodium 2 gm in 50 mls @ 100 mls/hr 03/13/24 16:00 03/14/24 00:58 Ancef 2 Gm/D5w 50 Ml IVPB 03/14/24 08:29 Infused Q8H GIANLUCA Infusion Vancomycin HCl 1,000 mg in 250 mls @ 250 mls/hr 03/13/24 19:00 03/14/24 06:47 Vancomycin 1,000 Mg/Ns 250 Ml IVPB 03/14/24 07:59 250 mls/hr Q12H GIANLUCA Administration Morphine Sulfate 2 mg 03/13/24 12:17 Morphine Sulfate (*Crx) 2 Mg/Ml Inj IV PUSH Q2H PRN Breakthrough Pain Rated 4-6 or N
--- NOTE | 2024-03-14 07:29 | PM.DS ---
DS: Admitting Diagnosis Discharge Date 03/14 Admitting Diagnosis Bilateral knee DJD DS: Discharge Diagnosis Discharge Diagnosis (1) Primary osteoarthritis of knees, bilateral: Code(s): M17.0 - Bilateral primary osteoarthritis of knee Status: Acute DS: Summary Hospital Course Hospital Course: 63-year-old female who underwent right total knee arthroplasty and cortisone injection into the left knee on 03/13. Underwent the procedure without complications. Postoperatively she has been afebrile and vital signs are stable. Neurovascularly she is intact. Pain is well controlled with oxycodone 5 mg as well as Tylenol every 4 hours. She is also on Celebrex 200 mg daily. She is weight-bearing as tolerated. She was up the day of surgery walking with therapy and was comfortable. She had been up overnight the day of surgery to the restroom multiple times using the walker well requiring minimal assistance. Patient be discharged home on 03/14. She was advised to keep leg elevated to prevent swelling in the knee. She was also advised to do her exercises every hour while awake. She has outpatient therapy starting next Sunday. She will go home with a 1 week course of Omnicef. She also go home Senokot and MiraLax for constipation. She is on Eliquis for DVT prophylaxis for the 1st 2 weeks. Patient was advised any questions or concerns she is to call the office otherwise we will see her at her appointments. Time Spent with Patient Time attestation: Total time spent providing and/or coordinating discharge services: DS: Data Data Completed and Pending Labs on day of discharge: Labs from last 24 hours 03/14/24 06:25 WBC 14.1 H RBC 3.73 L Hgb 11.8 L D Hct 36.5 L MCV 97.9 MCH 31.6 MCHC 32.3 RDW 12.5 Plt Count 212 MPV 9.7 Immature Gran % (Auto) 0.5 Neut % (Auto) 87.5 H Lymph % (Auto) 4.7 L [place] % (Auto) 7.2 Eos % (Auto) 0.0 Baso % (Auto) 0.1 L Lymph # (Auto) 0.67 L [place] # (Auto) 1.0 H Eos # (Auto) 0.0 Baso # (Auto) 0.0 Abs Immat Gran (auto) 0.07 H Absolute Neuts (auto) 12.4 H Absolute Nucleated RBC 0.000 Nucleated RBC % 0.0 Platelet Estimate Pending Schistocytes Pending Sodium 137 Potassium 4.1 Chloride 102 Carbon Dioxide 27 Anion Gap 8 BUN 11 Creatinine 0.70 Estim Creat Clear Calc 72 Estimated GFR > 60 Glucose 144 H Calcium 8.8 Discharge Plan Discharge Patient Disposition: Home, Self-Care Discharge Instructions: TE WALKER M[facility] [address] [address] [address] [place], [place] [id number] POST-OPERATIVE DISCHARGE INSTRUCTIONS TOTAL KNEE ARTHROPLASTY 1. When resting, do not rest in the chair.When resting, lie on your back, with back flat on the couch or bed, with leg elevated above heart to minimize swelling. You may put a pillow under your head. . Significant swelling could indicate a blood clot and if this occurs call the office (or go to the ER) to have a venous ultrasound. Therefore, do not rest in a chair. 2. At least five times a day spend several minutes stretching your knee into flexion while sitting in the chair and also stretching your knee out straight The abilities to bend your knee fully and straighten your knee fully are two most important knee functions to focus on during your recovery. 3. It is ok to sit in chair to eat, use the toilet and receive a guest and to do your stretching exercises, but, sitting in a chair will cause your leg to swell. Therefore, avoid additional time sitting in the chair. and don't rest in the chair. 4. Wound Care: Nursing will give you an additional Mepilex dressing at the time of discharge. Patient to remove the dressing and apply a new Mepilex dressing at home 7 days after surgery and leave the dressing on until seen in office. It is normal to see a small amount of blood on the silver pad of the Mepilex dressing. Its designed to hold small spots of blood. However, if the
[2024-03-14 07:58] LABS: Platelet Estimate Adequate (Adequate); Schistocytes None Seen
[2024-03-14 08:01] VITALS: BP 106/63; PULSE 69; RESP 18; TEMP 35.7; O2SAT 98
[2024-03-14] MEDS: SENNA/DOCUSATE SODIUM TABLET 2 TAB PO ×2 (09:10→16:37)
[2024-03-14] MEDS: APIXABAN 2.5 MG TABLET PO (09:10)
[2024-03-14] MEDS: FAMOTIDINE 20 MG TABLET PO (09:10)
[2024-03-14] MEDS: CELECOXIB 200 MG CAPSULE PO (09:11)
[2024-03-14] MEDS: CEFDINIR 300 MG CAPSULE PO (09:11)
--- NOTE | 2024-03-14 09:39 | WPDANESPN ---
Anes - Prog Note Post-Op Date/Time: 03/14/24 09:39 Cardiovascular status: normal Respiratory status: normal Airway patency: baseline Mental status: baseline Post-Op hydration status: normal Vital Signs: Last Vital Signs Temp 35.7 C L 03/14/24 08:01 Pulse 69 03/14/24 08:01 Resp 18 03/14/24 08:01 BP 106/63 03/14/24 08:01 Pulse Ox 98 03/14/24 08:01 O2 Del Method Room Air 03/13/24 20:00 O2 Flow Rate 3 03/13/24 12:13 Pain Score (VAS): 0 I/O: Intake & Output 03/13/24 03/14/24 03/14/24 23:59 07:59 15:59 Intake Total 420 410 240 Balance 420 410 240 Laboratory Tests 03/14/24 06:25 03/14/24 06:25 03/14/24 06:25 WBC 14.1 H RBC 3.73 L Hgb 11.8 L D Hct 36.5 L MCV 97.9 MCH 31.6 MCHC 32.3 RDW 12.5 Plt Count 212 MPV 9.7 Immature Gran % (Auto) 0.5 Neut % (Auto) 87.5 H Lymph % (Auto) 4.7 L [place] % (Auto) 7.2 Eos % (Auto) 0.0 Baso % (Auto) 0.1 L Lymph # (Auto) 0.67 L [place] # (Auto) 1.0 H Eos # (Auto) 0.0 Baso # (Auto) 0.0 Abs Immat Gran (auto) 0.07 H Absolute Neuts (auto) 12.4 H Absolute Nucleated RBC 0.000 Nucleated RBC % 0.0 Platelet Estimate Adequate Schistocytes None seen Sodium 137 Potassium 4.1 Chloride 102 Carbon Dioxide 27 Anion Gap 8 BUN 11 Creatinine 0.70 Estim Creat Clear Calc 72 Estimated GFR > 60 Glucose 144 H Calcium 8.8 Post-procedural complaints: none Patient Feedback: Patient satisfied with anesthetic care.
[2024-03-14 12:00] VITALS: BP 107/53; PULSE 66; RESP 16; TEMP 35.7; O2SAT 95
== END 2024-03-14 18:50 | disposition home or self-care (01) ==
LOC: ANHSURGERY 05:45 → ANH3MEDSUR 12:21
PROVIDERS: Physician Assistant Surgical; PCP Family Medicine; Visit Provider Orthopaedic Surgery
PROC: (CPT 27447; principal; 2024-03-13 07:30)
DX: M17.0 Bilateral primary osteoarthritis of knee (principal); Z87.891 Personal history of nicotine dependence; E66.9 Obesity, unspecified; Z68.36 Body mass index [BMI] 36.0-36.9, adult
CPT/HCPCS: 27447; 20610; 36415; 73560; 80048; 80307; 82040; 83036; 85025; 86850; 86900; 86901; 87081; 97110; 97116; 97161; 97165; 97530; 97535; A9270; C1713; C1776; J0171; J0330; J0690; J1010; J1100; J1170; J1885; J2250; J2371; J2405; J2704; J2795; J3010; J3370; J7030; J7120

== ENCOUNTER 2024-08-28 16:05 | Emergency (ER) | payer MEDICARE, SELFPAY ==
[2024-08-28 16:13] VITALS: BP 136/69; PULSE 92; RESP 20; TEMP 36.8; O2SAT 97
--- NOTE | 2024-08-28 16:24 | ED.URI ---
HPI - URI/Sore Throat General Chief Complaint: Upper Respiratory Infection Stated Complaint: Cough Time Seen by Provider: 08/28/24 16:25 Source: patient, RN notes reviewed and old records reviewed Mode of arrival: ambulatory Limitations: no limitations History of Present Illness HPI Narrative: 63-year-old female presents to the [facility] with complaints a cough for 4-5 days. Also reports the 1st day or 2 had a scratchy throat and left ear discomfort, those symptoms have resolved. Still with a cough. Has been taking NyQuil and Mucinex. Related Data Allergies Allergy/AdvReac Type Severity Reaction Status Date / Time hydrocodone Allergy Itching & Verified 08/28/24 16:22 SOB Review of Systems Review of Systems: All systems reviewed & are unremarkable except as noted in HPI and below Constitutional: Constitutional: Reports no additional constitutional complaints ENT: Reports system reviewed and no additional complaints, except as documented Cardiovascular: Cardiovascular: Reports no additional cardiovascular complaints, Denies chest pain and Denies dyspnea Respiratory: Respiratory: Reports as per HPI, Denies chest congestion, Reports cough and Denies dyspnea Musculoskeletal: Musculoskeletal: Reports no additional musculoskeletal complaints Integumentary/Breasts: Skin/Breast: Reports system reviewed and no additional complaints, except as docu PMFSH Past Medical History Medical History Degenerative arthritis of knee, bilateral Bronchial asthma Osteoarthritis Cataract Surgical History Surgical History H/O left breast biopsy 2020 History of knee surgery bilateral knee scopes History of cataract extraction History of ear surgery History of hand surgery left hand ganglion cyst removal History of hysterectomy History of lung surgery Family History Family History Sibling Cancer Father Heart disease CKD (chronic kidney disease) Mother No problems noted. Social History Social History Smoking packs per day: 1.5 Smoking cigarettes per day: 30.0 Years smoked: 30 Smoking pack-years: 45.00 Smoking status: Former smoker Tobacco type: cigarettes Second hand tobacco smoke exposure: Yes Smoking end date: 02/18/08 Additional smoking assessment comments: DENIES ANY FORM OF TOBACCO USE Alcohol intake: current Drinks per week: 42 Alcohol use details: BEER Substance use: never Substance use type: does not use Do You Feel Safe in your Home?: Yes Lack of Transportation: No Lack of Food: Never True Current Housing: I Have Housing Concerned About Future Housing: No Difficulty Paying Gas/Electric Bills: No Difficulty Paying for Meds: No Currently Unemployed: YES Education: High School Diploma/GED Difficulty w/ Childcare or Family Care: No Living arrangements: with family Additional living arrangements comments: Lives with boyfriend and his mother Occupation/Education: occupation Additional occupation/education comments: [employer] Gender identity (if verbalized by the patient): Female Sexual Orientation (if Verbalized by the Patient): Straight or Heterosexual Spiritual care concerns: No Comments At the time of my signature, I reviewed and agree with the nursing past medical, surgical, social, and family history. There is no relevant family history pertinent to the patient complaint. Exam Const: General: cooperative, healthy appearing, comfortable, no acute distress, well developed, alert and well nourished Nutritional Appearance: well nourished Orientation/consciousness: patient oriented x3 Limitations: no limitations HENMT: Head: normal to inspection Ears: hearing grossly normal bilaterally, external ears normal, TM's normal bilaterally, EAC's normal, mastoids normal and no periauricular adenopathy Mouth: Yes Normal oral and palatal mucosa present, Yes lip normal, Yes tongue normal, Yes moist mucous membranes and Yes moist mucous membranes abnormal Throat: posterior oropharynx normal, uvula midline, postnasal drainage and no uvular edema Eyes: General: appearance normal, both eyes and all related structures Alignment and Position: alignment normal Neck: Neck: normal visual inspection, full ROM, no lymphadenopathy and no meningeal signs Chest: Chest palpation & inspection: normal inspection of the chest Resp: Effort & Inspection: normal respiratory effort and able to speak in complete sentences Auscultation: clear to auscultation bilaterally, no crackles, no rales, no rhonchi and no wheezes Cardio: Rate: regular rate Skin: General skin exam: normal color and no rashes or lesions noted Neuro: General: patient oriented x3, gait normal, moves all extremities and no meningeal signs Cognition (Neuro): normal cognition Speech: normal speech Gait exam (Neuro): Normal gait present Extrem: General: normal to inspection, full ROM, capillary refill normal and normal gait Psych: Appearance: grossly normal and well kempt Mental Status: mental status grossly normal Speech and movement: Normal speech and movement present and Clear speech present Affect: normal affect Attitude: cooperative Course Course Level of Care: Express Care Visit Vital Signs Vital signs: Vital Signs Temperature 98.2 F 08/28/24 16:13 Pulse Rate 92 08/28/24 16:13 Respiratory Rate 20 08/28/24 16:13 Blood Pressure 136/69 08/28/24 16:13 Pulse Oximetry 97 08/28/24 16:13 Oxygen Delivery Room Air 08/28/24 16:13 Temperature 98.2 F 08/28/24 16:13 Pulse Rate 92 08/28/24 16:13 Respiratory Rate 20 08/28/24 16:13 Blood Pressure 136/69 08/28/24 16:13 Pulse Oximetry 97 08/28/24 16:13 Oxygen Delivery Room Air 08/28/24 16:13 Reviewed MDM - URI/Sore Throat MDM Narrative Medical decision making narrative: Patient sitting comfortably in exam room. Nontoxic, vitals stable. Patient in no acute distress. Patient presents with couple of day history of URI symptoms, bronchitis symptoms. No acute findings noted on exam. Patient appropriate for outpatient treatment and follow-up Discharge instructions reviewed with patient, as well as provided in writing per nursing staff. The instructions also include specific and strict return/GO TO THE ER as well as f/u information. All questions have been answered, and the patient deny any further questions with discharge and discharge plan. Some parts of this dictation were generated by voice recognition software and may contain typographical and/or grammatical inaccuracies. Differential Diagnosis Differential diagnosis: Likely upper respiratory infection, otitis media, sinusitis, viral infection, bronchitis and influenza Critical Care Time Critical Care Time Critical Care Time: No Discharge Plan Discharge Clinical Impression: Upper respiratory infection Qualifiers: URI type: unspecified viral URI Qualified Code(s): J06.9 - Acute upper respiratory infection, unspecified Sinusitis Qualifiers: Sinusitis location: pansinusitis Chronicity: acute Recurrence: not specified as recurrent Qualified Code(s): J01.40 - Acute pansinusitis, unspecified Patient Disposition: Home, Self-Care Condition: Stable Instructions: Antibiotic Form, Sinusitis (ED) Additional Instructions: It is very important to treat your symptoms. Drink plenty of water, Gatorade, Pedialyte, ice pops or Jell-O. -Alternate Tylenol and Motrin per package directions for fever or pain. You can alternate every 4 hours -Antihistamine medication such as Zyrtec/Claritin/Sandi during the day can help improve symptoms. -doing daily nasal irrigations can help relieve pressure your sinuses. Things like a Neti pot -Use Flonase twice a day for 5 days then daily to help reduce the inflammation and dry up your sinuses. -You can also use Mucinex. Be sure to drink plenty of water with this medication at least 8 ounces with every dose and it is important to drink 8 to 10 glasses of water per day. Water is a natural decongestant -Eat and drink things that are easy to swallow, like tea or soup, or popsicles. -Oral rinses such as: Salt water gargles and/or may use topical anesthetic (eg. Chloraseptic spray) or lozenges to relieve dryness or throat pain). -Frequent hand washing or hand bridge saw operator is one of the best ways to prevent spread of infection. -Using a vaporizer or humidifier at night will also help thin secretions and help with coughing up phlegm. -Follow up with primary care provider in 7-10 days if condition is not improving - For new or worsening symptoms go directly to the nearest ER Patient Language: Macedonian Prescriptions: New methylprednisolone [Medrol (Alex)] 4 mg tablets,dose pack See Rx Instructions PO .COMPLEX Qty: 21 0RF Rx Instructions: orally per package directions Follow-up/Referrals: Cooper Banda MD [Primary Care Provider[facility] Time of Disposition: 16:39
== END 2024-08-28 16:45 | disposition home or self-care (01) ==
PROVIDERS: Emergency Provider Nurse Practitioner; PCP Family Medicine
DX: J06.9 Acute upper respiratory infection, unspecified (principal); J01.40 Acute pansinusitis, unspecified; M17.0 Bilateral primary osteoarthritis of knee; J45.909 Unspecified asthma, uncomplicated; Z87.891 Personal history of nicotine dependence
CPT/HCPCS: 99213; G0463

== ENCOUNTER 2024-11-04 12:01 | Emergency (ER) | payer MEDICARE, MEDICAID, SELFPAY ==
[2024-11-04 12:20] VITALS: BP 136/92; PULSE 73; RESP 16; TEMP 36.5; O2SAT 100
--- NOTE | 2024-11-04 12:38 | ED.ABDPAIN ---
HPI - Abdominal Pain General Chief Complaint: Abdominal Pain Stated Complaint: right side lower abdominal pain/bloating Time Seen by Provider: 11/04/24 13:10 Source: patient and RN notes reviewed Mode of arrival: ambulatory Limitations: no limitations History of Present Illness HPI narrative: 64-year-old female presents concern for right lower quadrant abdominal pain for 2 days. Reports pain is worsened when moving, bending, rolling over in bed. She reports she had bloody stools few days ago. She denies nausea vomiting, fever MD elicited complaint: abdominal pain Related Data Home Medications ?Medication ?Instructions ?Recorded ?Confirmed ?Last Taken ?Type No Home Medications 09/12/24 11/04/24 Unknown History Allergies Allergy/AdvReac Type Severity Reaction Status Date / Time hydrocodone Allergy Itching & Verified 11/04/24 13:31 SOB Review of Systems Review of Systems: CONSTITUTIONAL: Denies malaise, chills, sweats, or fever. ENT: Denies rhinorrhea, congestion, sinus pain, otalgia or sore throat. CARDIOVASCULAR: Denies chest pain, palpitations, or edema. RESPIRATORY: Denies cough or dyspnea. GASTROINTESTINAL: Reports right lower quadrant abdominal pain, bloody stools. Denies nausea, vomiting, diarrhea GENITOURINARY: Denies dysuria or hematuria. MUSCULOSKELETAL: Denies myalgia. NEUROLOGIC: Denies headache. All systems reviewed & are unremarkable except as noted in HPI and below PMFSH Past Medical History Medical History Degenerative arthritis of knee, bilateral Bronchial asthma Osteoarthritis Cataract Surgical History Surgical History H/O left breast biopsy 2020 History of knee surgery bilateral knee scopes History of cataract extraction History of ear surgery History of hand surgery left hand ganglion cyst removal History of hysterectomy History of lung surgery Family History Family History Sibling Cancer Father Heart disease CKD (chronic kidney disease) Mother No problems noted. Social History Social History (Updated 09/12/24 @ 09:05 by Karen Crane CMA) Smoking packs per day: 1.5 Smoking cigarettes per day: 30.0 Years smoked: 30 Smoking pack-years: 45.00 Smoking status: Former smoker Tobacco type: cigarettes Second hand tobacco smoke exposure: Yes Smoking end date: 02/18/08 Additional smoking assessment comments: DENIES ANY FORM OF TOBACCO USE Alcohol intake: current Drinks per week: 42 Alcohol use details: BEER Substance use: never Substance use type: does not use Do You Feel Safe in your Home?: Yes Lack of Transportation: No Lack of Food: Never True Current Housing: I Have Housing Concerned About Future Housing: No Difficulty Paying Gas/Electric Bills: No Difficulty Paying for Meds: No Currently Unemployed: No Education: High School Diploma/GED Difficulty w/ Childcare or Family Care: No Living arrangements: with family Additional living arrangements comments: Lives with boyfriend and his mother Occupation/Education: occupation 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 There is no relevant family history pertinent to the presenting complaint Exam Narrative: GENERAL: Well-appearing, well-nourished, and in no acute distress. HEAD: Normocephalic, atraumatic. EYES: PERRLA, conjunctivae clear, and EOMI. ENT: Nares clear, turbinates pink, no rhinorrhea or epistaxis. Mucous membranes moist. Oropharynx without edema, erythema, or lesions. Tonsils not enlarged and without exudate. NECK: Supple. No lymphadenopathy CHEST: Speaks in full sentences. No respiratory distress. HEART: Regular rate and rhythm. ABDOMEN: Soft, obese, nondistended, right lower quadrant tenderness. No guarding or rigidity. No pulsatile masses. Bowel sounds present in all four quadrants. No organomegaly. SKIN: Warm, dry, no rash. NEURO: Alert and oriented x3. PSYCH: Normal mood and affect Course Course Emergency Course: Patient is aware of, understands and agrees to be transferred to the emergency room. Patient agrees to proceed directly to the emergency department. Portions of this record may have been created with voice recognition software Level of Care: Express Care Visit Vital Signs Vital signs: Vital Signs Temperature 97.7 F 11/04/24 12:20 Pulse Rate 73 11/04/24 12:20 Respiratory Rate 16 11/04/24 12:20 Blood Pressure 136/92 H 11/04/24 12:20 Pulse Oximetry 100 11/04/24 12:20 Oxygen Delivery Room Air 11/04/24 12:20 Temperature 97.7 F 11/04/24 12:20 Pulse Rate 73 11/04/24 12:20 Respiratory Rate 16 11/04/24 12:20 Blood Pressure 136/92 H 11/04/24 12:20 Pulse Oximetry 100 11/04/24 12:20 Oxygen Delivery Room Air 11/04/24 12:20 Reviewed. Transfer Transfered to: [place] Transportation: Other (private vehicle) Transfer rationale: Abdominal pain Accepting physician: Chevy MDM - Abdominal Pain MDM Narrative Medical decision making narrative: Patient is nontoxic appearing and in no acute distress Lab Data Labs: Lab Results 11/04/24 Range/Units 13:00 POC Urine Color Yellow POC Urine Clarity Clear POC Urine pH 6.5 POC Ur Specif [place] 1.010 POC Urine Protein Negative (Negative) POC Ur Glucose (UA) Negative (Negative) POC Urine Ketones Negative (Negative) POC Urine Blood Negative (Negative) POC Urine Nitrite Negative (Negative) POC Urine Bilirubin Negative (Negative) POC Urine Urobilinogen 0.2 POC U Leukocyte Esteras Negative (Negative) Critical Care Time Critical Care Time Critical Care Time: No Discharge Plan Discharge Clinical Impression: Abdominal pain Patient Disposition: Acute Care Hospital Condition: Stable Patient Language: Setswana Prescriptions: No Action No Home Medications Follow-up/Referrals: Cooper Banda MD [Primary Care Provider] - Time of Disposition: 13:55
[2024-11-04 13:03] LABS: EDUAAPPEAR Clear; EDUABILI Negative (Negative); EDUABLOOD Negative (Negative); EDUACOLOR1 Yellow; EDUAGLUCOSE Negative (Negative); EDUAKETONE Negative (Negative); EDUALEUKO Negative (Negative); EDUANITRATE Negative (Negative); EDUAPH 6.5; EDUAPROTEIN Negative (Negative); EDUAUROBILI 0.2
== END 2024-11-04 13:24 | disposition short-term general hospital (02) ==
LOC: EXPCOLL 12:11
PROVIDERS: Emergency Provider Nurse Practitioner; PCP Family Medicine
DX: R10.31 Right lower quadrant pain (principal); Z87.891 Personal history of nicotine dependence; M17.0 Bilateral primary osteoarthritis of knee; J45.909 Unspecified asthma, uncomplicated; M19.90 Unspecified osteoarthritis, unspecified site
CPT/HCPCS: 81003; 99212; G0463

== ENCOUNTER 2024-11-04 13:30 | Emergency (ER) | payer MEDICARE, MEDICAID, SELFPAY ==
--- NOTE | ~2024-11-04 | CT_ITS ---
EXAMINATION: CT abdomen pelvis w con DATE: 11/04/2024 16:01 INDICATION: Right lower quadrant abdominal pain TECHNIQUE: Computed tomography (CT) of the abdomen and pelvis was performed with 100 mL Omnipaque-350 intravenous contrast. Automated exposure control and iterative reconstruction technique were employe d. The dose-length product was 1112.52 mGy-cm. COMPARISON: None FINDINGS: Calcified right lower lobe nodule along with calcified right hilar and mediastinal lymph nodes consis tent with old granulomatous disease. Unilateral mild calcified pleural plaques at the lateral left mi dlung with underlying mild linear discoid atelectasis/scarring at the periphery of the left lower lob e and lingula. Findings may represent sequela of prior trauma with a few more superficial old lateral sided left lower rib fractures. 7 x 4 mm flat triangular likely intrafissural lymph node along the l eft major fissure. Heart size is normal. Atherosclerotic coronary artery calcifications. No pericardi al or pleural effusion. Mild enlargement of the central pulmonary arteries consistent with pulmonary arterial hypertension. Small sliding-type hiatal hernia. Diffuse hepatic steatosis with focal sparing along the gallbladder fossa. Gallbladder, pancreas, bilateral kidneys and left adrenal gland are nor mal. 2.0 cm right adrenal nodule. Several splenic calcification consistent with old granulomatous dis ease. Bladder is normal. The uterus is not identified and has likely been surgically resected. There is moderate colonic diverticulosis with a sigmoid and descending colon predominance and without adjac ent inflammatory change to suggest diverticulitis. Normal appendix. No bowel obstruction. No free in traperitoneal gas or fluid. No pathologically enlarged abdominal or pelvic lymphadenopathy. L4 spondy lolysis with chronic appearing bilateral pars interarticularis defects and 4 mm anterolisthesis L4 on L5. There is severe disc height loss at L4-L5. Otherwise mild lumbar and mild to moderate lower thor acic spondylosis. IMPRESSION: 1. No acute intra-abdominal/pelvic process. Specifically the gallbladder and appendix are normal. 2. Diverticulosis. 3. Small sliding-type hiatal hernia. 4. Diffuse hepatic steatosis. 5. 2 cm right adrenal nodule which the absence of known primary malignancy most likely represents an adenoma. Would recommend follow-up with adrenal protocol pre and postcontrast CT or MRI. Reviewed, dictated and finalized at location A. IMPRESSION: 1. No acute intra-abdominal/pelvic process. Specifically the gallbladder and ap pendix are normal. 2. Diverticulosis. 3. Small sliding-type hiatal hernia. 4. Diffuse hepatic steatosis. 5. 2 cm right adrenal nodule which the absence of known primary malignancy most likely represents an adenoma. Would recommend follow-up with adrenal protocol pre and postcontrast CT or MRI.
[2024-11-04 13:40] VITALS: BP 120/75; PULSE 80; RESP 16; TEMP 36.4; O2SAT 94
--- NOTE | 2024-11-04 14:45 | ED.ABDPAIN ---
HPI - Abdominal Pain General Chief Complaint: Abdominal Pain <Jaiden Howell PA-C - Last Filed: 11/04/24 14:50> Stated Complaint: sent by for US/Ct scan <Jaiden Howell PA-C - Last Filed: 11/04/24 14:50> Time Seen by Provider: 11/04/24 16:19 <Jaiden Howell PA-C - Last Filed: 11/04/24 14:50> Focused HPI: This is a 64-year-old female who presents to the ED for chief complaint of abdominal pain x2 days. Reports that over the past day or so the pain has went from a generalized pain to a more localized right lower quadrant pain. She reports mild nausea but no vomiting. Denies fevers, chills, urinary symptoms. States she was seen urgent care who wanted to get evaluated for possible appendicitis. States that her urinalysis at urgent care today was completely normal. GENERAL: Well-appearing, well-nourished, and in no acute distress. HEAD: Normocephalic, atraumatic. CHEST: Clear to auscultation. No respiratory distress. HEART: Regular rate and rhythm. ABD: Mild tenderness across the lower abdomen, worse in the right lower quadrant. Soft and otherwise nontender. NEURO: Alert and oriented x3. Patient screened in triage and initial orders placed. Additional care and disposition to be based upon diagnostic testing and treatment. <Jaiden Howell PA-C - Last Filed: 11/04/24 14:50> Related Data Home Medications: Home Medications ?Medication ?Instructions ?Recorded ?Confirmed ?Last Taken ?Type No Home Medications 09/12/24 11/04/24 Unknown History <Jaiden Howell PA-C - Last Filed: 11/04/24 14:50> Allergies/Adverse Reactions: Allergies Allergy/AdvReac Type Severity Reaction Status Date / Time hydrocodone Allergy Itching & Verified 11/04/24 13:31 SOB <Jaiden Howell PA-C - Last Filed: 11/04/24 14:50> Review of Systems Review of Systems: All systems reviewed & are unremarkable except as noted in HPI and below <Shaggy Eric MD - Last Filed: 11/04/24 21:58> PMFSH Past Medical History Medical History: Medical History Degenerative arthritis of knee, bilateral Bronchial asthma Osteoarthritis Cataract <Jaiden Howell PA-C - Last Filed: 11/04/24 14:50> Surgical History Surgical History: Surgical History H/O left breast biopsy 2020 History of knee surgery bilateral knee scopes History of cataract extraction History of ear surgery History of hand surgery left hand ganglion cyst removal History of hysterectomy History of lung surgery <LOUISE Vasquez Last Filed: 11/04/24 14:50> Family History Family History: Family History Sibling Cancer Father Heart disease CKD (chronic kidney disease) Mother No problems noted. <Jaiden Howell PA-C - Last Filed: 11/04/24 14:50> Social History Social History: Social History (Updated 09/12/24 @ 09:05 by Karen Crane [facility]) Smoking packs per day: 1.5 Smoking cigarettes per day: 30.0 Years smoked: 30 Smoking pack-years: 45.00 Smoking status: Former smoker Tobacco type: cigarettes Second hand tobacco smoke exposure: Yes Smoking end date: 02/18/08 Additional smoking assessment comments: DENIES ANY FORM OF TOBACCO USE Alcohol intake: current Drinks per week: 42 Alcohol use details: BEER Substance use: never Substance use type: does not use Do You Feel Safe in your Home?: Yes Lack of Transportation: No Lack of Food: Never True Current Housing: I Have Housing Concerned About Future Housing: No Difficulty Paying Gas/Electric Bills: No Difficulty Paying for Meds: No Currently Unemployed: No Education: High School Diploma/GED Difficulty w/ Childcare or Family Care: No Living arrangements: with family Additional living arrangements comments: Lives with boyfriend and his mother Occupation/Education: occupation 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 HEAD: normocephalic, atraumatic. EYES: PERRLA/EOMI, conjunctivae clear. NOSE: Normal no drainage EARS:TMS clear with good light reflex. THROAT: Pharynx clear, no exudate. NECK: Supple. No adenopathy, no masses. RESPIRATORY: Airway patent, respirations nonlabored. Clear to auscultation bilaterally, no rales, rhonchi, wheezing. CARDIOVASCULAR: Regular rate and rhythm without murmurs rubs or gallops. ABDOMINAL: No significant abdominal tenderness to palpation, no CVA tenderness. MUSCULOSKELETAL: Moves all extremities. Strength/ROM intact, No edema, No calf tenderness. NEURO: Alert. Cranial nerves II through XII intact. Good gait. Good coordination SKIN: Warm, dry. Normal Color <Shaggy Eric MD - Last Filed: 11/04/24 21:58> Course Vital Signs Vital signs: Vital Signs Temperature 97.6 F 11/04/24 13:40 Pulse Rate 80 11/04/24 13:40 Respiratory Rate 16 11/04/24 13:40 Blood Pressure 120/75 11/04/24 13:40 Pulse Oximetry 94 11/04/24 13:40 Oxygen Delivery Room Air 11/04/24 13:40 Temperature 97.6 F 11/04/24 13:40 Pulse Rate 87 11/04/24 18:52 Respiratory Rate 18 11/04/24 18:52 Blood Pressure 142/87 H 11/04/24 18:52 Pulse Oximetry 98 11/04/24 18:52 Oxygen Delivery Room Air 11/04/24 13:40 <Jaiden Howell PA-C - Last Filed: 11/04/24 14:50> Vital Signs Temperature 97.6 F 11/04/24 13:40 Pulse Rate 80 11/04/24 13:40 Respiratory Rate 16 11/04/24 13:40 Blood Pressure 120/75 11/04/24 13:40 Pulse Oximetry 94 11/04/24 13:40 Oxygen Delivery Room Air 11/04/24 13:40 Temperature 97.6 F 11/04/24 13:40 Pulse Rate 87 11/04/24 18:52 Respiratory Rate 18 11/04/24 18:52 Blood Pressure 142/87 H 03/18/25 18:52 Pulse Oximetry 98 11/04/24 18:52 Oxygen Delivery Room Air 11/04/24 13:40 <Shaggy Eric MD - Last Filed: 11/04/24 21:58> MDM - Abdominal Pain MDM Narrative Medical decision making narrative: 64-year-old female presents emergency department for evaluation for some right lower quadrant abdominal pain. Patient is currently afebrile with no leukocytosis hemoglobin 14.3. Patient has no acute abnormalities on her CMP with a negative lipase. Patient states her pain has improved. Patient had no significant abdominal tenderness to palpation. Patient was advised to have follow-up for 2 cm right adrenal nodule. Patient's CT scan was negative for appendicitis, colitis, diverticulitis, cholecystitis. Patient was updated the results of workup encouraged close follow-up. All questions concerns were addressed. <Shaggy Eric MD - Last Filed: 11/04/24 21:58> Differential Diagnosis Differential diagnosis: Likely abdominal pain, acute appendicitis, constipation, gastroenteritis, pancreatitis and small bowel obstruction <Shaggy Eric MD - Last Filed: 11/04/24 21:58> Lab Data Attestation: I reviewed the patient's lab results. <Shaggy Eric MD - Last Filed: 11/04/24 21:58> Result diagrams: 11/04/24 14:48 11/04/24 14:48 <Jaiden Howell PA-C - Last Filed: 11/04/24 14:50> Labs: Lab Results 11/04/24 Range/Units 14:48 WBC 7.2 (4.5-10.0) K/mm3 RBC 4.64 (4.2-5.4) M/mm3 Hgb 14.3 (12.0-15.0) g/dL Hct 44.5 (37.0-47.0) % MCV 95.9 (80-100) fl MCH 30.8 (26-34) pg MCHC 32.1 (32-36) g/dl RDW 13.2 (11.5-14.5) % Plt Count 233 (150-375) k/mm3 MPV 9.8 (7.4-10.4) fl Immature Gran % (Auto) 0.3 (0-0.5) % Neut % (Auto) 68.4 (45.5-73.1) % Lymph % (Auto) 21.4 (18.3-44.2) % Ritchie % (Auto) 8.0 (2.6-8.5) % Eos % (Auto) 1.1 (0-4.4) % Baso % (Auto) 0.8 (0.2-1.2) % Lymph # (Auto) 1.55 (0.9-3.2) K/mm3 Ritchie # (Auto) 0.6 (0.1-0.6) K/mm3 Eos # (Auto) 0.1 (0-0.3) K/mm3 Baso # (Auto) 0.1 (0.0-0.1) K/mm3 Abs Immat Gran (auto) 0.02 (0.00-0.031) K/mm3 Absolute Neuts (auto) 5.0 (1.3-6.7) K/mm3 Absolute Nucleated RBC 0.000 (0.0-0.012) K/mm3 Nucleated RBC % 0.0 (0.0-0.2) % Sodium 140 (137-145) mmol/L Potassium 3.8 (3.4-5.0) mmol/L Chloride 103 (98-107) mmol/L Carbon Dioxide 28 (22-30) mmol/L Anion Gap 9 (4-12) mmol/L BUN 11 (7-17) mg/dL Creatinine 0.69 L (0.7-1.0) mg/dL Estim Creat Clear Calc 74 ml/min Estimated GFR > 60 (59 - ) Glucose 109 (65-110) mg/dL Calcium 9.4 (8.4-10.2) mg/dL Total Bilirubin 0.6 (0.2-1.3) mg/dL AST 28 (14-36) U/L ALT 32 (6-35) U/L Alkaline Phosphatase 74 (38-126) U/L Total Protein 8.0 (6.3-8.2) g/dL Albumin 4.6 (3.5-5.1) g/dL Lipase 67 (23-300) U/L <Jaiden Howell PA-C - Last Filed: 11/04/24 14:50> Lab Results 11/04/24 Range/Units 14:48 WBC 7.2 (4.5-10.0) K/mm3 RBC 4.64 (4.2-5.4) M/mm3 Hgb 14.3 (12.0-15.0) g/dL Hct 44.5 (37.0-47.0) % MCV 95.9 (80-100) fl MCH 30.8 (26-34) pg MCHC 32.1 (32-36) g/dl RDW 13.2 (11.5-14.5) % Plt Count 233 (150-375) k/mm3 MPV 9.8 (7.4-10.4) fl Immature Gran % (Auto) 0.3 (0-0.5) % Neut % (Auto) 68.4 (45.5-73.1) % Lymph % (Auto) 21.4 (18.3-44.2) % Ritchie % (Auto) 8.0 (2.6-8.5) % Eos % (Auto) 1.1 (0-4.4) % Baso % (Auto) 0.8 (0.2-1.2) % Lymph # (Auto) 1.55 (0.9-3.2) K/mm3 Ritchie # (Auto) 0.6 (0.1-0.6) K/mm3 Eos # (Auto) 0.1 (0-0.3) K/mm3 Baso # (Auto) 0.1 (0.0-0.1) K/mm3 Abs Immat Gran (auto) 0.02 (0.00-0.031) K/mm3 Absolute Neuts (auto) 5.0 (1.3-6.7) K/mm3 Absolute Nucleated RBC 0.000 (0.0-0.012) K/mm3 Nucleated RBC % 0.0 (0.0-0.2) % Sodium 140 (137-145) mmol/L Potassium 3.8 (3.4-5.0) mmol/L Chloride 103 (98-107) mmol/L Carbon Dioxide 28 (22-30) mmol/L Anion Gap 9 (4-12) mmol/L BUN 11 (7-17) mg/dL Creatinine 0.69 L (0.7-1.0) mg/dL Estim Creat Clear Calc 74 ml/min Estimated GFR > 60 (59 - ) Glucose 109 (65-110) mg/dL Calcium 9.4 (8.4-10.2) mg/dL Total Bilirubin 0.6 (0.2-1.3) mg/dL AST 28 (14-36) U/L ALT 32 (6-35) U/L Alkaline Phosphatase 74 (38-126) U/L Total Protein 8.0 (6.3-8.2) g/dL Albumin 4.6 (3.5-5.1) g/dL Lipase 67 (23-300) U/L <Shaggy Eric MD - Last Filed: 11/04/24 21:58> Imaging Data Radiologist's impression: ITS Impressions Abdomen/Pelvis CT 11/04/24 16:04 IMPRESSION: 1. No acute intra-abdominal/pelvic process. Specifically the gallbladder and appendix are normal. 2. Diverticulosis. 3. Small sliding-type hiatal hernia. 4. Diffuse hepatic steatosis. 5. 2 cm right adrenal nodule which the absence of known primary malignancy most likely represents an adenoma. Would recommend follow-up with adrenal protocol pre and postcontrast CT or MRI. <Jaiden Howell PA-C - Last Filed: 11/04/24 14:50> ITS Impressions Abdomen/Pelvis CT 11/04/24 16:04 IMPRESSION: 1. No acute intra-abdominal/pelvic process. Specifically the gallbladder and appendix are normal. 2. Diverticulosis. 3. Small sliding-type hiatal hernia. 4. Diffuse hepatic steatosis. 5. 2 cm right adrenal nodule which the absence of known primary malignancy most likely represents an adenoma. Would recommend follow-up with adrenal protocol pre and postcontrast CT or MRI. <Shaggy Eric MD - Last Filed: 11/04/24 21:58> Discharge Plan Discharge Clinical Impression: Abdominal pain, lower <Jaiden Howell PA-C - Last Filed: 11/04/24 14:50> Patient Disposition: Home, Self-Care <Jaiden Howell PA-C - Last Filed: 11/04/24 14:50> Condition: Stable <Jaiden Howell PA-C - Last Filed: 11/04/24 14:50> Instructions: Antibiotic Form, Abdominal Pain (ED) <Jaiden Howell PA-C - Last Filed: 11/04/24 14:50> Additional Instructions: Your CT scan was negative for appendicitis. Tylenol and ibuprofen for pain control. Have close follow-up with primary care physician. If you have any worsening symptoms then please call or return to the emergency department. Your CT scan did have an incidental finding of a 2 cm right adrenal nodule, have close follow-up with your primary care physician and they may wish to order a follow-up MRI. <Jaiden Howell PA-C - Last Filed: 11/04/24 14:50> Patient Language: Tajik <Jaiden Howell PA-C - Last Filed: 11/04/24 14:50> Prescriptions: No Action No Home Medications <Jaiden Howell PA-C - Last Filed: 11/04/24 14:50> Follow-up/Referrals: Cooper Banda MD [Primary Care Provider] - <Jaiden Howell PA-C - Last Filed: 11/04/24 14:50>
--- OUTSIDE RECORDS SUMMARY | 2024-11-04 15:07 | XMS_ITS | Data Portability ---
Author Organization [place] - [facility], Main Office Address [address] [place] [address] Assessment Encounter Date Assessment Date Assessment LastModified by Organization Details LastModified Time 05/10/2023 05/10/2023 impression: Patient has severe medial compartment osteoarthritis of both knees. Both knees are severely symptomatic but the left has been a bit worse lately. She is hoping undergo knee replacement in both knees is staged fashion and she would like the left knee 1st. I have recommended that we give her a cortisone shot in the right that time left knee replacement which will help her recovery. Also she will need to use a heel lift underneath the right heel after left knee replacement because straightening her knee will cause a significant leg length discrepancy until she has her right knee replaced as well. The I have discussed risks of surgery with her detail. I explained that there will be numbness lateral to the incision ,that patient's have difficulty kneeling and some patients have chronic sensitivity tenderness over the front of her knee after knee replacement. We discussed the risk of infection. She has had a little bit higher risk because of her history of smoking and COPD and would be a candidate for extended oral antibiotics after surgery. we discussed my preference for her using antibiotics before dental work. We would want her to stop her ibuprofen 1 week before surgery. Risk of blood clots discussed. Her adopted father of a pulmonary embolism while in the hospital after being admitted with a large blood clot in his leg so she is aware of this problem. I discussed my preference for using Eliquis for 2 weeks followed by a baby aspirin twice daily for 4 weeks after surgery. I explained the risk of need for revision surgery due to problems such as loosening or fracture ligament injury. Risk of stiffness instability were discussed. Risk of bleeding and need for transfusion and nerve injury reviewed. Risk of medical complications such as heart attack stroke pulmonary embolism and were discussed. She understands and wishes to proceed. I have given her the Ortho info handout for review and her questions were answered. 45 minutes were spent in total care this patient more than half the time spent in tbtd-vj-qyaw care Not available 05/10/2023 20:43:20 05/14/2023 05/14/2023 The patient has severe primary osteoarthritis bilateral knee joints. At her request under sterile conditions I injected both knee joints in the office today with 4 cc 0.5% ropivacaine and 20 mg of Kenalog each. Patient tolerated procedure well. We will see her back as needed she is awaiting surgical intervention for bilateral total knee arthroplasty in a staged fashion somewhere within the next 3-4 months. She will call for any further problems difficulties or questions. [email or web address] Not available 05/14/2023 09:41:29 07/26/2023 07/26/2023 Impression: Patient has severe medial compartment osteoarthritis in both knees were symptomatic on the right. Knee replacement be appropriate for her. We talked about the risks of surgery again in detail and on further questioning she admitted that she does have severe periodontal disease in the rear molars of her lower teeth and indeed she has black necrotic comes around her rear molars. She has dentures above. She has not seen a dentist in many years. She reviewed the total knee replacement handout and was aware of the need to have any dental infections addressed before knee replacement surgery but did not think that her tooth problems were infection. She has been having her molars fragment on her as well. Based on their appearance, I think there is a high likelihood that is going to be recommend that she have those teeth that are loose removed. The severe periodontal disease likely indicates indolent periodontal infections. I recommend that she see the dentist as soon as possible. If they feel that cleaning alone is sufficient she can have that done. I expect that she will be advised to have those teeth pulled and it is best for her to have those pulled at least 3 months before knee replacement because of the risk of infection in her knee replacement if she has the teeth pulled either shortly before knee replacement were after knee replacement We did talk about the option of injections in her knee again. She can have these repeated another 3 weeks. They were very helpful benefit wore off after about 6 weeks. I would also recommend that we evaluate her for inflammatory arthritis. Her rather severe right-sided tib-fib joint arthritis may be associated with inflammatory arthritis such as psoriatic arthritis. There is not a single blood test that is specific for that. She does not have nail pitting. I recommended aspirating her right knee and this was done after ChloraPrep prep and 3 cc of clear light yellow fluid were removed so she does not have evidence of an inflammatory effusion at this time. I would recommend we obtain blood work to look for elevation in inflammatory markers. I have talked her about perhaps trying diclofenac to see if this gives her better pain relief. Possible side effects were discussed she knows she will have to stop the Advil and avoiding the Aleve. I have given her instructions she described possible side effects of anti-inflammatory medication use. I have prescribed 50 mg twice daily with food. She will continue to work on weight loss which can be beneficial. I will see her back in 3 weeks assess her progress and we can discuss the option of cortisone injections in her knees again at that time. 40 minutes were spent in total care this patient more than half the time spent in [id number]-ew-[id number] care. Not available 07/28/2023 18:35:25 Plan of Treatment Reminders Order Date Submit Date Provider Last Modified By Organization Details Last Modified Time Details Appointments None recorded. Lab None recorded. Referral None recorded. Procedures injection/a spiration joint/bursa (PROC) - in office procedure, administere d by provider 2022 023 [email or web address] In-Office Order, Internal Use Only DO Not Attach Compendium DO Not Attach Compendium, Do Not Delete/merge, [id number] 09:25:39 Surgeries None recorded. Imaging None recorded. Medication Orders Kenalog 10 mg/mL suspension for injection 2022 023 [email or web address] [id number], [address] , [place], [address], 3 09:49:20 ropivacaine (PF) 5 mg/mL (0.5 %) injection solution 2022 023 [email or web address] [id number], [address] [place], [address], 3 09:50:17 Patient TargetsNo targets recorded. Patient InstructionsNo instructions recorded. Reason for Referral None Reported. Results Created Date Observation Date Name Description Value Unit Range Abnormal Flag Note LastModifiedBy Organization Detail LastModifiedTime Result Notes None recorded. Problems Name Problem SNOMED Code Status Onset Date Resolution Date Notes Provider Name and Address Organization Details Recorded Time Pain of bilateral knee joints 7099865687932 04 Active 2022 PAMELA Perdomo, [facility] [employer] [facility] 3 10:43:21 Bilateral osteoarthri tis of knees 0019367799192 07 Active 2022 CELI Nassar [address] [facility], [facility] [address], [place], [address], [place] [employer] [facility] 3 09:41:40 Bilateral arthritis of knees 7246360112512 108 Active 2022 Karen Crane CMA null, [employer] [facility] [employer] [facility] 3 10:47:27 Problem Notes None recorded. Procedures Surgical History Date Name Laterality Status Provider Name and Address Organization Details Recorded Time Knee completed PAMELA Perdomo [facility] [employer] [facility] 05/10/2023 10:42:42 Imaging Results None recorded. Procedure Notes None recorded. Medical Equipment None Reported. Allergies Allergen ID Allergen Name Allergen Category Reaction Reaction Severity Criticality Documentation Date Start Date Code Code System Note Provider Name and Address Organization Details Recorded Time 25018 hydrocodo ne Not available Not available Not available Not available 05/10/2023 5489 RxNorm PAMELA Perdomo, [facility] [employer] [facility] 3 10:41:37 Medications Name Sig Start Date Stop Date Status Note LastModified by Organization Details LastModified Time doxycycline hyclate 100 mg capsule TAKE 1 CAPSULE BY MOUTH TWICE A DAY 07/26 completed Not Available Not Available Not Available fluconazole 150 mg tablet TAKE 1 TABLET BY MOUTH NOW THEN REPEAT IN 72 HOURS 07/26 completed Not Available Not Available Not Available benzonatate 200 mg capsule TAKE 1 CAPSULE BY MOUTH THREE TIMES A DAY NEEDED FOR COUGH FOR 10 DAYS. 07/26 completed Not Available Not Available Not Available fluconazole 200 mg tablet TAKE 1 TABLET BY MOUTH EVERY DAY 07/26 completed Not Available Not Available Not Available prednisone 20 mg tablet TAKE 2 TABLETS BY MOUTH ONCE A DAY FOR COUGH FOR 5 DAYS 07/26 completed Not Available Not Available Not Available Kenalog 10 mg/mL suspension for injection Take 40 mg by injection route. 2022 active [facility]: 0003- 0494- 20 Not Available Not Available Not Available benzonatate 100 mg capsule TAKE 1 CAPSULE BY MOUTH 3 TIMES A DAY NEEDED FOR COUGH active Not Available Not Available No t Available doxycycline monohydrate 100 mg capsule TAKE 1 CAPSULE BY MOUTH TWICE A DAY 07/26 completed Not Available Not Available Not Available diclofenac sodium 50 mg tablet,uriel yed release active Not Available Not Available Not Available estradiol 0.01% (0.1 mg/gram) vaginal cream PLEASE SEE ATTACHED FOR DETAILED DIRECTION S active Not Available Not Available No t Available albuterol sulfate HFA 90 mcg/actuati on aerosol inhaler INHALE 2 PUFFS BY MOUTH EVERY 4 HOURS NEEDED FOR COUGH. 07/26 completed Not Available Not Available Not Available amoxicillin 875 mg-potassiu m clavulanate 125 mg tablet TAKE 1 TABLET BY MOUTH TWICE A DAY active Not Available Not Available No t Available ropivacaine (PF) 5 mg/mL (0.5 %) injection solution Take 40 mg by injection route. 07/26 completed [facility] [phone] -[phone] Not Available Not Available Not Available Yuvafem 10 mcg vaginal tablet INSERT 10 MCG VAGINALLY TWICE A WEEK MAINTENAN CE DOSE active Not Available Not Available No t Available Vitals Date Recorded Body height Body mass index (BMI) Body weight Provider Name and Address Organization Details Last Updated DateTime 05/10/2023 157.48 cm 34.4 kg/m2 60215.37 g PAMELA Perdomo [employer] [facility] 05/10/2023 11:17:16 Date Recorded Body height Body mass index (BMI) Body weight Provider Name and Address Organization Details Last Updated DateTime 05/14/2023 160.02 cm 32.8 kg/m2 40993.59 g Alina Rosas CNA [employer] [facility] 05/14/2023 09:24:31 Date Recorded Body height Provider Name an d Address Organization Details Last Updated DateTime 07/26/2023 160.02 cm PAMELA Perdomo [employer] [facility] 07/26/2023 09:48:14 Social History Question Answer Notes LastModified by Organizat ion Details LastModified Time Tobacco Smoking Status Never Smoker PAMELA Perdomo null, [place] [facility] 05/10/2023 10:42:32 What Is Your Level Of Alcohol Consumption? Moderate [email or web address] Information not available 05/10/2023 Sex: Unknown Functional Status None recorded. Mental Status None recorded. Family History Relationship Description Onset Age of this Age Resolved Age Notes LastModified by Organization Details LastModified Time Father Heart disease [email or web address] Not available 2022 10:42:12 Brother Family history of malignant neoplasm [email or web address] Not available 2022 10:42:22 Medical History Condition Response ARTHRITIS Y CANCER: SPECIFY Y Gynecological HistoryNo gynecological history recorded. Obstetrics History GPAL:G 0 P 0 0 0 0 Past Encounters Encounter ID Performer Location Encounter Start Date Encounter Closed Date Diagnosis/Indication Diagnosis SNOMED-CT Code Diagnosis ICD10 Code Diagnosis Note [id number] Rome Prince MD [facility]_[address] [address] 05/10/2023 10:20:41 05/11/2023 09:54:44 Pain of bilateral knee joints [id number] 74490 M25.561 M25.477 [id number] CELI Nassar [facility] [address] [place] [address] 05/14/2023 09:09:22 05/14/2023 10:00:33 Pain of bilateral knee joints 5660681545 77046 M25.561 M25.562 Bilateral osteoarthritis of knees 5393463195 17932 M17.0 [id number] Rome Prince MD [facility]_[address] [address] 07/26/2023 09:40:19 07/30/2023 09:58:56 Bilateral osteoarthritis of knees 5664491742 55775 M17.0 Health Concerns Section Related Observation LastModified by Organization Detai ls LastModified Time None Recorded Concern Status LastModified by Organization Details LastModified Time None Recorded Advance Directives Directive None Recorded Payers Encounter Date Sequence Insurance Name Policy Number Policy Armstrong Covered Member ID Armstrong Member ID Guarantor Name 05/10/2023 1 [place] [employer] [place] [id number] Amena Nguyen [id number] Yasmeen Nguyen 05/14/2023 1 [place] [id number] Amena Nguyen [id number] Yasmeen Nguyen 07/26/2023 1 [place] [id number] Amena Nguyen [id number] Yasmeen Nguyen Notes Date Note Type Note Provider Name and Address Organization Details Recorded Time 05/10/2023 text/html patient is a 62-year-old gentleman who is referred by And and was a patient Dr. Banda presents for evaluation of her knees. She has been seen Dr. Talbert and has been preparing to proceed with left total knee arthroplasty. Both of her knees cause diffuse global pain sometimes radiation on the fronts for knees and shins but mostly around her knees circumferentially. She has had pain for many years. She had arthroscopic surgery to trim torn menisci and a staged fashion in approximately 2013. She takes ibuprofen 600 mg 3 times a day. She had x-rays the knee on 01/30/2023 of both knees which demonstrates severe osteoarthritis of medial compartment bilaterally with 9 degree anatomic axis varus deformities of both knees. Her past medical history is significant for pneumonia and empyema in 2007 that required a thoracotomy through a long horizontal oblique incision left side of her trunk to to evacuate the empyema. She had been a long-term smoker prior to that and she quit smoking immediately after that episode. She had a lumpectomy in 2012 left breast which was thought to be cancer but non basis of. She was followed closely until recently this and no recurrence. She does have some COPD. She did get itching and shortness of breath after her lung surgery on hydrocodone. She has tolerated oxycodone. The she has no history hypertension or heart disease Or high cholesterol. Rome Prince MD [address] [place] [address], [facility] [address], [place], [address], [facility] 05/10/2023 20:44:41 05/14/2023 text/html patient returns complaining of bilateral knee pain. She is going to undergo total knee arthroplasties at the end of the year or beginning of the next year she has discussed this in detail with Dr. Prince here. She would like to have both knees injected and this will help her get her by until she can undergo surgery. She has severe primary osteoarthritis both knees aching pain that limits his daily activities she is quite miserable and would like some relief until surgery. CELI Nassar [address] [facility], [facility] [address], [place], [address], [employer] 05/14/2023 09:42:05 07/26/2023 text/html patient returns. She last had cortisone injections in both knees on 05/14/2023. She has been planning on total knee arthroplasty on the right August 11 with a cortisone shot left knee. Her chief complaint is actually posterolateral right knee pain. She has severe medial compartment osteoarthritis the right knee with knee with and 11 degree anatomic varus alignment. She has been having severe pain in the she only tolerates driving for about 30 minutes that time and she has severe start-up pain. She uses Advil and Aleve as basis. She denies any liver disease kidney disease or peptic ulcer disease. I reviewed her x-rays again from 01/30/2023 which show severe medial compartment osteoarthritis both knees with distraction lateral compartments bilaterally. Certainly lot of her posterolateral knee pain may be due to over stretching of the lateral collateral ligament due to were varus deformity. I notice also that she has rather severe degenerative change and periarticular cystic changes at the proximal tib-fib joint of the right knee. She does not exhibit this in the left knee. Rome Prince MD [address], [facility] [address], [place], [address], [employer] 07/28/2023 18:35:39 OBGyn Episode No OBEpisode recorded.
--- OUTSIDE RECORDS SUMMARY | 2024-11-04 15:07 | XMS_ITS | Clinical Summary ---
Author Organization [facility] Address [address] [facility] Attn: Epic Prelude ADT [place] [address] Care Team Providers Care Babysitter Name Role Phone Unavailable Primary Care Provider Unavailabl e Allergies Active Allergy Reactions Criticality Noted Date Comments Hydrocodone Itching High 07/23/2008 Medications predniSONE 10 mg Tablets, Dose Pack Day 1 - 5 tabs Day 2 - 5 tabs Day 3 - 4 tabs Day 4 - 4 tabs Day 5 - 3 tabs Day 6 - 3 tabs Day 7 - 2 tabs Day 8 - 2 tabs Day 9 - 1 tab Day 10 - 1 tab Day 11 - 1/2 tab Day 12 - 1/2 tab 31 Tablet 0 05/23/2020 Active ibuprofen (MOTRIN) 200 mg tablet Take 600 mg by mouth every 6 hours as needed for Pain, Mild. 06/27/2018 Active diphenhydrAMINE (BENADRYL) 25 mg tablet Take 50 mg by mouth every 6 hours as needed for Allergies. 05/23/2020 Active Active Problems Problem Noted Date Diagnosed Date Tobacco use 06/27/2018 Right knee DJD 08/20/2014 Injury of meniscus of knee 08/20/2014 Sciatica neuralgia 10/16/2013 GERD (gastroesophageal reflux disease) 2 Acute pharyngitis 08/25/2011 Middle ear effusion 08/25/2011 Restrictive lung disease 09/28/2008 Suture removal 07/29/2008 S/P thoracostomy tube placement Sepsis, Gram positive S/P thoracotomy Overview (12/16/2020): Pleural decortication Streptococcus pneumoniae infection Fever Renal insufficiency Respiratory failure Empyema Immunizations Immunization Administration Dates Next Due (TDVAX)(7 YRS UP) TETANUS AN D DIPHTHERIA TOXOIDS, ADSORBED (2 LF OF TETANUS TOXOID AND 2 LF OF DIPHTHERIA TOXOID), 0.5ML (PF), IM 01/16/2008 Influenza Seasonal Unspecifi ed Formulation IM 07/14/2008 Influenza Vaccine Split 3+ Yrs IM 08/18/2011,,05/31/2009 Family History Medical History Relation Name Comments Cancer Brother Breast Cancer Neg Hx Relation Name Status Comments Brother Social History Tobacco Use Types Packs/Day Years Used Date Smoking Tobacco: Former Cigarettes Q uit: 06/14/2008 Smokeless Tobacco: Never Alcohol Use Standard Drinks/Week Comments Yes 42 (1 standard drink = 0.6 oz pu re alcohol) Comments Unknown Sex and Gender Information Value Date Recorded Sex Assigned at Not on file Legal Sex Female 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 Gender Identity Not on file Sexual Orientation Not on file Last Filed Vital Signs Vital Sign Reading Time Taken Comments Blood Pressure 131/94 05/23/2020 11:08 AM CDT Pulse 76 05/23/2020 11:08 AM CDT Temperature 37 C (98.6 F) 05/23/2020 11:08 AM CDT Respiratory Rate 18 05/23/2020 11:08 AM CDT Oxygen Saturation - - Inhaled Oxygen Concentration - - Weight 84.8 kg (187 lb) 05/23/2020 11:08 AM CDT Height 162.6 cm (5' 4 ) 05/23/2020 11:08 AM CDT Body Mass Index 32.1 05/23/2020 11:08 AM CDT Plan of Treatment Health Maintenance Due Date Last Done Comments COLORECTAL SCREENING 2003 Colorectal Cancer Screening 2003 FIT-DNA Q 3 years 2003 FIT/FOBT Q 1 year 2003 Flex Sig/CT Colonography Q 5 years 2003 DTAP/TDAP/TD VACCINES (1 - Tdap) 01/17/2008 01/16/20 08 PNEUMOCOCCAL VACCINE 50+ YEA RS (1 of 1 - PCV) 2008 ZOSTER VACCINE (1 of 2) 2008 BREAST CANCER SCREENING 07/24/2017 07/24/20 16, 06/29/2016, 11/26/2012 OSTEOPOROSIS SCREENING 2023 INFLUENZA VACCINE (#1) 2024 1, 07/18/2010, 05/31/2009, Additional history exists RSV VACCINE (60+ or ) (1 - 1-dose 75+ series) 2033 Procedures Procedure Name Priority Date/Time Associated Diagnosis Comments MAMMO SCREEN BILAT W OR WO CAD Routine 07/24/2016 2:47 PM CHAIN HOOKER Visit for screening mammogram from Last 3 Months or Most Recently Relevant to Health Maintenance Results * MAMMO SCREEN BILAT W OR WO CAD (07/24/2016 2:47 PM CHAIN HOOKER) Anatomical Region Laterality Modality Breast Bilateral Other Impressions 07/26/2016 2:41 PM CHAIN HOOKER Possible new nodule on the left will require additional evaluation. I recommend straight mediolateral image with compressed magnified CC and ML images, and ultrasound will probably be necessary. [id number] Narrative 07/26/2016 2:41 PM CHAIN HOOKER BILATERAL DIGITAL SCREENING MAMMOGRAM: Repeat examination on this 55-year-old female is compared with previous 11/26/2012. Breast tissue is again dense. Calcifications bilaterally appear stable. Some nodular tissue is again suggested bilaterally. No change is suggested on the right. There is a suggestion of a small new nodule deep over the midportion of the left breast, at the junction of the parenchymal tissue and fat. This is incompletely visualized. No other change on either side is seen. This digital mammogram was also analyzed by the Computer Aided Detection System (CAD), [employer], Version 8.3. Procedure Note Jaziel Baeza MD - 11/22/2021 BILATERAL DIGITAL SCREENING MAMMOGRAM: Repeat examination on this 55-year-old female is compared with previous 11/26/2012. Breast tissue is again dense. Calcifications bilaterally appear stable. Some nodular tissue is again suggested bilaterally. No change is suggested on the right. There is a suggestion of a small new nodule deep over the midportion of the left breast, at the junction of the parenchymal tissue and fat. This is incompletely visualized. No other change on either side is seen. This digital mammogram was also analyzed by the Computer Aided Detection System (CAD), [employer], Version 8.3. IMPRESSION Possible new nodule on the left will require additional evaluation. I recommend straight mediolateral image with compressed magnified CC and ML images, and ultrasound will probably be necessary. [id number] us Keyona Keller APRN MAMMO ORDERABLES Fi nal Result from Last 3 Months or Most Recently Relevant to Health Maintenance
[2024-11-04 15:13] LABS: Basophils Absolute Auto 0.1 K/mm3 (0.0-0.1); Basophils Percent Auto 0.8 % (0.2-1.2); Eosinophils Absolute Auto 0.1 K/mm3 (0-0.3); Eosinophils Percent Auto 1.1 % (0-4.4); Hematocrit 44.5 % (37.0-47.0); Hemoglobin 14.3 g/dL (12.0-15.0); Immature Granulocyte Absolute 0.02 K/mm3 (0.00-0.031); Immature Granulocyte Percent A 0.3 % (0-0.5); Lymphocytes Absolute Auto 1.55 K/mm3 (0.9-3.2); Lymphocytes Percent Auto 21.4 % (18.3-44.2); Mean Corpuscular HGB Conc 32.1 g/dl (32-36); Mean Corpuscular Hemoglobin 30.8 pg (26-34); Mean Corpuscular Volume 95.9 fl (80-100); Mean Platelet Volume 9.8 fl (7.4-10.4); Monocytes Absolute Auto 0.6 K/mm3 (0.1-0.6); Neutrophils Percent Auto 68.4 % (45.5-73.1); Platelet Count Result 233 k/mm3 (150-375); Red Blood Count 4.64 M/mm3 (4.2-5.4); Red Cell Distribution Width 13.2 % (11.5-14.5); White Blood Count 7.2 K/mm3 (4.5-10.0)
[2024-11-04 15:26] LABS: Alanine Aminotransferase 32 U/L (6-35); Albumin Level 4.6 g/dL (3.5-5.1); Alkaline Phosphatase 74 U/L (38-126); Anion Gap 9 mmol/L (4-12); Aspartate Amino Transferase 28 U/L (14-36); Bilirubin,Total 0.6 mg/dL (0.2-1.3); Blood Urea Nitrogen 11 mg/dL (7-17); Calcium 9.4 mg/dL (8.4-10.2); Carbon Dioxide 28 mmol/L (22-30); Chloride 103 mmol/L (98-107); Estimated CRCL calculation 74 ml/min; Estimated Glomerular Filt Rate > 60; Glucose 109 mg/dL (65-110); Lipase 67 U/L (23-300); Potassium 3.8 mmol/L (3.4-5.0); Sodium 140 mmol/L (137-145)
[2024-11-04 15:42] VITALS: BP 136/91; PULSE 78; RESP 18; O2SAT 96
[2024-11-04 16:40] VITALS: BP 132/86; PULSE 74; RESP 16; O2SAT 99
--- NOTE | 2024-11-04 16:40 | PC.NURSE ---
Pt. reports no pain at this time.
--- OUTSIDE RECORDS SUMMARY | 2024-11-04 17:27 | XMS_ITS | Clinical Summary ---
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 I recommend straight mediolateral image with compressed magnified CC and ML images, and ultrasound will probably be necessary. [id number] Narrative 07/26/2016 2:41 PM COMMERCIAL ACCOUNT EXECUTIVE BILATERAL DIGITAL SCREENING MAMMOGRAM: Repeat examination on [...] by the Computer Aided Detection System (CAD), [employer] ImageChecker, Version 8.3. Procedure Note Jaziel Baeza [...] by the Computer Aided Detection System (CAD), [employer] ImageBenzingacker, Version 8.3. IMPRESSION Possible new nodule on the left will require additional evaluation. I recommend straight mediolateral image with compressed magnified CC and ML images, and ultrasound will probably be necessary. [id number] us Keyona Keller APRN MAMMO ORDERABLES Fi nal Result from Last 3 Months or Most Recently Relevant to Health Maintenance
[2024-11-04 18:52] VITALS: BP 142/87; PULSE 87; RESP 18; O2SAT 98
== END 2024-11-04 18:54 | disposition home or self-care (01) ==
PROVIDERS: Physician Assistant; Emergency Provider Emergency Medicine; PCP Family Medicine
DX: R10.31 Right lower quadrant pain (principal); J45.909 Unspecified asthma, uncomplicated; M17.0 Bilateral primary osteoarthritis of knee; Z87.891 Personal history of nicotine dependence; Z90.710 Acquired absence of both cervix and uterus; Z98.49 Cataract extraction status, unspecified eye; K57.90 Diverticulosis of intestine, part unspecified, without perforation or abscess without bleeding; K44.9 Diaphragmatic hernia without obstruction or gangrene; K76.0 Fatty (change of) liver, not elsewhere classified; E27.8 Other specified disorders of adrenal gland
CPT/HCPCS: 36415; 74177; 80053; 83690; 85025; 99284; Q9967

== ENCOUNTER 2025-06-08 09:18 | Outpatient (CLI) | payer MEDICARE, MEDICAID, SELFPAY ==
--- NOTE | ~2025-06-08 | DEXA_ITS ---
Bone Density Report Name: VIKA HOUSE Age: 64 Sex: Female Ethnicity: White Date of : 1960 Indication: postmenopausal; screening for osteoporosis; hysterectomy; Referring Provider: MADDY LOZANO Study: Bone densitometry was performed. Exam Date: June 08, 2025 Accession number: [id number] Bone Density: Region BMD T-score Z-score Classification AP Spine(L1-L4) 0.819 -2.1 -0.2 Osteopenia Femoral Neck (Left) 0.585 -2.4 -0.8 Osteopenia Total Hip (Left) 0.744 -1.6 -0.3 Osteopenia Femoral Neck (Right) 0.546 -2.7 -1.1 Osteoporosis Total Hip (Right) 0.687 -2.1 -0.8 Osteopenia Total Hip Mean 0.716 -1.9 -0.6 Osteopenia World Health Organization criteria for BMD impression classify patients as: Normal (T-score at or above -1.0), Osteopenia (T-score between -1.0 and -2.5), or Osteoporosis (T-score at or below -2.5). 10-year Fracture Risk: FRAX not reported because: Some T-score for Spine Total or Hip Total or Femoral Neck at or below -2.5 Clinical Information Provided by Patient: Has 3 or more alcoholic drinks per day Has the following medical conditions: Hysterectomy Patient maximum height was 63.75 Menopause Age: 37 No regular weight bearing exercise Drinks caffeinated beverages Onset of menses at age 14 Number of children 2 Impression: The patient has osteoporosis, based on the Right Femoral Neck T-score. The patient has risk factors, including: excessive alcohol use. Discussion: INCREASED RISK OF FRACTURE. BONE DENSITY IS UNDESIRABLY LOW AT ONE OR MORE SKELETAL SITES, CONSISTENT WITH POSTMENOPAUSAL OSTEOPOROSIS. This patient's lowest T-score meets the World Health Organization's (WHO) criteria for osteoporosis at one or more sites (T-score -2.5 or below). In untreated patients, the risk of osteoporotic fracture increases approximately two-fold for each 1.0 SD decrease in T-score. Low bone density is not the only risk factor for fracture; also consider factors such as patient's age, frailty or poor health, risk of falling, risk of injury, previous osteoporotic fracture, family history of osteoporosis, cigarette smoking, low body weight, etc. Not everyone with low bone mineral density has osteoporosis; osteomalacia and other metabolic bone disorders should also be considered. Patients who have osteoporosis should be evaluated for specific diseases and conditions (secondary causes) that may cause or contribute to bone loss. The [place] Association of Clinical Endocrinologists (AACE) and National Osteoporosis Foundation (NOF) recommend pharmacologic intervention for all postmenopausal women whose T-score is in this range. The patient should follow a healthful lifestyle (good nutrition with adequate calcium and vitamin D, and appropriate weight-bearing exercise). Follow-Up: Consider a repeat BMD and Vertebral Fracture Assessment (VFA) exam in 2 years or sooner if medically necessary, to reassess this patient's status. Reported by: ABRAHAM on 06/08/2025 10:06:00 AM. Reviewed, dictated and finalized at location A.
--- NOTE | ~2025-06-08 | MM_ITS ---
EXAMINATION: MM screening chanelle BI w tera HISTORY: Screening TECHNIQUE: Craniocaudal and mediolateral oblique 3-D tomosynthesis images were obtained and synthetic 2-D images were generated. CAD analysis was submitted and interpreted. COMPARISON: Comparison to multiple prior studies sequentially, with oldest reviewed study dated 01/30/2018. BREAST PARENCHYMAL COMPOSITION: Not dense: There are scattered areas of fibroglandular density. FINDINGS: There are developing bilateral centrally located masses which are partially obscured by fibroglandular tissue. Largest mass located in the central aspect of the right breast, middle third. There are no suspicious calcifications or distortion. IMPRESSION: 1. Developing bilateral breast masses. 2. Additional mammographic views and possible breast ultrasound are recommended. BI-RADS Category 0: Incomplete: Needs additional imaging evaluation. Reviewed, dictated and finalized at location O. IMPRESSION: 1. Developing bilateral breast masses. 2. Additional mammographic views and possible breast ultrasound are recommended . BI-RADS Category 0: Incomplete: Needs additional imaging evaluation.
== END 2025-06-08 09:19 | disposition home or self-care (01) ==
LOC: ANHFOHIMG 09:19
PROVIDERS: PCP Family Medicine; Visit Provider Family Medicine
DX: Z12.31 Encounter for screening mammogram for malignant neoplasm of breast (principal); Z78.0 Asymptomatic menopausal state; R92.8 Other abnormal and inconclusive findings on diagnostic imaging of breast; M85.88 Other specified disorders of bone density and structure, other site; M85.852 Other specified disorders of bone density and structure, left thigh; M81.0 Age-related osteoporosis without current pathological fracture; M85.851 Other specified disorders of bone density and structure, right thigh
CPT/HCPCS: 77063; 77067; 77080

== ENCOUNTER 2025-06-08 10:45 | Outpatient (CLI) | payer MEDICARE, MEDICAID, SELFPAY ==
[2025-06-08 11:19] LABS: Hematocrit 45.7 % (37.0-47.0); Hemoglobin 15.1 g/dL (12.0-15.0); Immature Granulocyte Percent A 0.6 % (0-0.5); Lymphocytes Absolute Auto 1.26 K/mm3 (0.9-3.2); Mean Corpuscular HGB Conc 33.0 g/dl (32-36); Mean Corpuscular Hemoglobin 31.4 pg (26-34); Mean Corpuscular Volume 95.0 fl (80-100); Nucleated Red Blood Cells Absolute Auto 0.000 K/mm3 (0.0-0.012); Nucleated Red Blood Cells Perc 0.0 % (0.0-0.2); Platelet Count Result 231 k/mm3 (150-375); Red Blood Count 4.81 M/mm3 (4.2-5.4); White Blood Count 6.6 K/mm3 (4.5-10.0)
[2025-06-08 11:27] LABS: Hemoglobin A1C 5.4 % (<5.7)
[2025-06-08 11:47] LABS: Alanine Aminotransferase 39 U/L (6-35); Albumin Level 4.5 g/dL (3.5-5.1); Alkaline Phosphatase 70 U/L (38-126); Anion Gap 8 mmol/L (4-12); Aspartate Amino Transferase 34 U/L (14-36); Bilirubin,Total 0.7 mg/dL (0.2-1.3); Blood Urea Nitrogen 11 mg/dL (7-17); Calcium 9.5 mg/dL (8.4-10.2); Carbon Dioxide 29 mmol/L (22-30); Chloride 102 mmol/L (98-107); Cholesterol 190 mg/dL (0-200); Estimated Glomerular Filt Rate > 60; Glucose 113 mg/dL (65-110); HDL Direct 59 mg/dL; Potassium 4.2 mmol/L (3.4-5.0); Sodium 139 mmol/L (137-145); Total Protein 7.7 g/dL (6.3-8.2); Triglycerides 78 mg/dL (<150)
[2025-06-08 12:41] LABS: Vitamin B12 309.0 pg/mL (239-931)
[2025-06-09 16:08] LABS: ANA by IFA Rfx Titer/Pattern Negative (.)
== END 2025-06-08 10:46 | disposition home or self-care (01) ==
PROVIDERS: PCP Family Medicine; Visit Provider Family Medicine
DX: R73.03 Prediabetes (principal); E66.9 Obesity, unspecified; M19.90 Unspecified osteoarthritis, unspecified site; M25.50 Pain in unspecified joint; Z00.00 Encounter for general adult medical examination without abnormal findings; M25.562 Pain in left knee; M25.561 Pain in right knee
CPT/HCPCS: 36415; 80053; 80061; 82306; 82607; 83036; 85025; 86038

== ENCOUNTER 2025-07-06 10:47 | Emergency (ER) | payer MEDICARE, MEDICAID, SELFPAY ==
--- NOTE | 2025-07-06 10:51 | ED.UPPEXIN ---
HPI - Extremity Injury (Upper) General Chief Complaint: Extremity Injury, Upper Stated Complaint: Right Wrist/Arm Pain Time Seen by Provider: 07/06/25 10:50 Source: patient Mode of arrival: ambulatory Limitations: no limitations History of Present Illness HPI narrative: Yasmeen is a 64 year old female patient presenting to the clinic today with c/o right ulnar wrist pain with some swelling x1 days. She reports she has putting up [place] decorations yesterday and noticed some wrist pain. States she has a hard to locking the door due to her wrist pain. Has mild swelling and redness. No history of gout. Denies any known injury. Denies any numbness or tingling. History of osteoarthritis. Related Data Home Medications ?Medication ?Instructions ?Recorded ?Confirmed ?Last Taken ?Type omeprazole 20 mg capsule,delayed 20 mg PO DAILY 02/25/25 06/24/25 Unknown History release Tumeric PO 03/20/25 06/24/25 Unknown History glucosamine sulfate 500 mg tablet 500 mg PO BID 03/20/25 06/24/25 Unknown History (Glucosamine) Allergies Allergy/AdvReac Type Severity Reaction Status Date / Time hydrocodone Allergy Itching & Verified 07/06/25 10:58 SOB Review of Systems Review of Systems: Pertinent positives per HPI. Patient denies any fever, chills, rash, headache, visual changes, dizziness, cough, runny nose, sore throat, shortness of breath, chest pain, palpitations, nausea, vomiting, diarrhea, constipation, abdominal pain, or any urinary issues. [facility] Past Medical History Medical History Degenerative arthritis of knee, bilateral Bronchial asthma Osteoarthritis Cataract Surgical History Surgical History H/O left breast biopsy 2019 History of knee surgery bilateral knee scopes History of cataract extraction History of ear surgery History of hand surgery left hand ganglion cyst removal History of hysterectomy History of lung surgery Family History Family History Sibling Cancer Father Heart disease CKD (chronic kidney disease) Mother No problems noted. Social History Social History Smoking packs per day: 1.5 Smoking cigarettes per day: 30.0 Years smoked: 30 Smoking pack-years: 45.00 Smoking status: Former smoker Tobacco type: cigarettes Second hand tobacco smoke exposure: Yes Smoking end date: 02/18/08 Additional smoking assessment comments: DENIES ANY FORM OF TOBACCO USE Alcohol intake: current Drinks per week: 42 Alcohol use details: BEER Substance use: never Substance use type: does not use Current Housing: Decline to Answer Concerned About Future Housing: Decline to Answer Difficulty Paying Gas/Electric Bills: Decline to Answer Difficulty Paying for Meds: Decline to Answer Currently Unemployed: Decline to Answer Education: Decline to Answer Difficulty w/ Childcare or Family Care: Decline to Answer Living arrangements: with family Additional living arrangements comments: Lives with boyfriend and his mother Occupation/Education: occupation 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 There is no relevant family history pertinent to the patient complaint. Exam Narrative: General: Well-developed, well nourished, in no apparent distress Head: Normocephalic, atraumatic. Cardio: Regular rate and rhythm, s1 and s2 normal, no murmur appreciated. Resp: Clear to auscultation bilaterally, no rhonchi, rales, wheezing or rubs. Musculoskeletal: No deformity mild redness and swelling with tender to palpation over the right ulnar wrist, grossly normal range of motion, pain with ulnar and radial deviation, bilateral hand marketing writer strong and equal, muscle strength strong and equal, peripheral pulse strong, no edema, no cyanosis, normal gait and station Course Course Emergency Course: Portions of this record may have been created with voice recognition software. Level of Care: Express Care Visit Vital Signs Vital signs: Vital Signs Temperature 36.6 C 07/06/25 10:58 Pulse Rate 69 07/06/25 10:58 Respiratory Rate 18 07/06/25 10:58 Blood Pressure 132/71 07/06/25 10:58 Pulse Oximetry 99 07/06/25 10:58 Oxygen Delivery Room Air 07/06/25 10:58 Temperature 36.6 C 07/06/25 10:58 Pulse Rate 69 11/17/25 10:58 Respiratory Rate 18 07/06/25 10:58 Blood Pressure 132/71 07/06/25 10:58 Pulse Oximetry 99 07/06/25 10:58 Oxygen Delivery Room Air 07/06/25 10:58 Vital signs reviewed MDM - Extremity Injury (Upper) MDM Narrative Medical decision making narrative: At the time of visit patient is resting comfortably on the exam table. Patient appears to be nontoxic. c/o right ulnar wrist pain with some swelling x1 days. She reports she has putting up [place] decorations yesterday and noticed some wrist pain. States she has a hard to locking the door due to her wrist pain. Has mild swelling and redness. No history of gout. Denies any known injury. Denies any numbness or tingling. History of osteoarthritis. States when she wraps the wrist up it improves pain. On exam patient has mild redness and swelling to the ulnar side of the right wrist, tenderness to palpation over this area, has grossly normal range of motion but some pain with ulnar and radial deviation, pain does radiate up the arm with certain movements Plan: I suspect patient has arthralgia/acute wrist pain. Do not feel as though a x-rays needed at this time. Prescription for Medrol Dosepak was sent to the pharmacy. Patient is already taking Celebrex for her osteoarthritis. May keep Brandon wrap in place. Rest, ice, and elevate. Supportive measures were discussed with the patient and they voiced understanding discharge instructions and agrees to treatment plan. Return precautions reviewed Differential Diagnosis Differential diagnosis: Likely sprain and strain of wrist, fracture of wrist and other (Osteoarthritis, gout) Discharge Plan Discharge Clinical Impression: Acute pain of right wrist Patient Disposition: Home Condition: Stable Instructions: Antibiotic Form, Arthralgia (ED), Swollen Joint (ED) Additional Instructions: Rest, ice, elevate, and wear brandon wrap as directed Tylenol/motrin for pain as discussed. Take Medrol Dosepak as prescribed Follow up with your PCP if symptoms persist more than 1 week. Patient Language: Congolese Prescriptions: New methylprednisolone [Medrol (Alex)] 4 mg tablets,dose pack See Rx Instructions PO .COMPLEX Qty: 21 0RF Rx Instructions: orally per package directions No Action Tumeric PO glucosamine sulfate [Glucosamine] 500 mg tablet 500 mg PO BID Rx Instructions: administer with meals omeprazole 20 mg capsule,delayed release(DR/EC) 20 mg PO DAILY celecoxib [Celebrex] 200 mg capsule 200 mg PO DAILY Qty: 30 2RF alendronate 70 mg tablet 70 mg PO WEEKLY Qty: 14 1RF Follow-up/Referrals: Cooper Banda MD [Primary Care Provider, [facility]] Time of Disposition: 11:03 Quality NIHSS Nursing Documentation ED NIHSS nursing documentation: reviewed/agree
[2025-07-06 10:58] VITALS: BP 132/71; PULSE 69; RESP 18; TEMP 36.6; O2SAT 99
== END 2025-07-06 11:09 | disposition home or self-care (01) ==
PROVIDERS: Emergency Provider Nurse Practitioner Family; PCP Family Medicine
DX: M25.531 Pain in right wrist (principal); Z87.891 Personal history of nicotine dependence; J45.909 Unspecified asthma, uncomplicated; M17.0 Bilateral primary osteoarthritis of knee
CPT/HCPCS: 99213; G0463

== ENCOUNTER 2025-07-23 10:40 | Outpatient (CLI) | payer MEDICARE, MEDICAID, SELFPAY ==
--- NOTE | ~2025-07-23 | MM_ITS ---
EXAMINATION: MM diagnostic chanelle BI w tera HISTORY: Additional imaging TECHNIQUE: Craniocaudal and mediolateral oblique 3-D tomosynthesis images were obtained and synthetic 2-D images were generated. CAD analysis was submitted and interpreted. COMPARISON: June 08 BREAST PARENCHYMAL COMPOSITION: Dense: The breasts are heterogeneously dense. This may obscure small masses. MAMMOGRAM FINDINGS: There are waxing and waning circumscribed nodules/masses, consistent with breast cysts. No suspicious masses are seen. There are no suspicious calcifications. No unexplained architectural distortion is seen. There are no skin or nipple abnormalities identified. There is no adenopathy seen on the images submitted. IMPRESSION: No mammographic evidence to suggest malignancy is seen. The patient may return to screening mammography as per ACR guidelines. BI-RADS 2 - Benign. Reviewed, dictated and finalized at location C. OSCIENCE SPECIALIST
--- OUTSIDE RECORDS SUMMARY | 2025-07-23 11:53 | XMS_ITS | Encounter Summary ---
Author Organization [facility] Address [address] [place] [address] Care Team Providers Care Treater Helper Name Role Phone Danial Carmichael MD Primary Care Provider +1- [phone] Encounter Details Date Type Department Care Team (Latest Contact Info) Description 04/09/[address] [phone] Nikolay Heaton MD [address] [place] [phone] Other Specified Erythematous Condition (Primary Dx); Insect Bite NEC Social History Tobacco Use Types Packs/Day Years Used Date Smoking Tobacco: Never Assessed Comments Unknown Sex and Gender Information Value Date Recorded Sex Assigned at Not on file Legal Sex Female 3:49 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 Gender Identity Not on file Sexual Orientation Not on file documented as of this encounter Plan of Treatment Not on file documented as of this encounter Visit Diagnoses Diagnosis Other specified erythematous condition(695.89)- Primary Other specified erythematous condition Other, multiple, and unspecified sites, insect bite, nonvenomous, without mention of infection(919.4) Other, multiple, and unspecified sites, insect bite, nonvenomous, without mention of infection documented in this encounter Care Teams Treater Helper Relationship Specialty Start Date End Date Danial Carmichael MD PCP - General Family Practice 4/9/13 11/7/18 documented as of this encounter
--- OUTSIDE RECORDS SUMMARY | 2025-07-23 11:53 | XMS_ITS | Encounter Summary ---
Author Organization [facility] Address [address] [facility] Attn: Epic Prelude ADT [place] [address] Care Team Providers Care Manager Underwriting Name Role Phone Danial Carmichael MD Primary Care Provider +1- [phone] Encounter Details Date Type Department Care Team (Late st Contact Info) Description 06/26/2008 Outpatient Historical Nikolay Heaton MD [address] [place] [address] [place] [phone] Social History Tobacco Use Types Packs/Day Years Used Date Smoking Tobacco: Never Assessed Comments Unknown Sex and Gender Information Value Date Recorded Sex Assigned at Not on file Legal Sex Female 3:49 AM TRACTOR DRIVER Gender Identity Not on file Sexual Orientation Not on file documented as of this encounter Plan of Treatment Not on file documented as of this encounter Procedures Procedure Name Priority Date/Time Associated Diagnosis Comments VITAMIN B12 AND FOLATE Routine 8 10:20 AM TRACTOR DRIVER IRON, TIBC, AND PERCENT SATURATION Routine 06/26/2008 10:20 AM TRACTOR DRIVER RETICULOCYTES Routine 06/26/2008 10:20 AM TRACTOR DRIVER documented in this encounter Results * (ABNORMAL) IRON AND TIBC (06/26/2008 10:20 AM TRACTOR DRIVER) IRON 12(L) 50 - 170 ug/dL [facility] TIBC 202(L) 250 - 450 ug/dL [facility] IRON % SATURATION 6(L) 15 - 50 % [facility] Blood specimen (specimen) 06/26/2008 10:20 AM TRACTOR DRIVER 06/26/2008 9:01 PM TRACTOR DRIVER Nikolay Heaton MD CHEMISTRY ORDERABLES Final Resul t Performing Organization Address [facility] Phone Number INTERFACE SYSTEM Refer to clinic/hospital department [facility] CLIA# [id number] [address] [place] [address] * RETICULOCYTES (06/26/2008 10:20 AM TRACTOR DRIVER) RETICULOCYTES 1.5 0.5 - 1.5 % [facility] Comment: Collection date/time has been modified to: 10:20:00. Previous collection date/time: 21:00:00. Blood specimen (specimen) 06/26/2008 10:20 AM TRACTOR DRIVER 06/26/2008 9:01 PM TRACTOR DRIVER Nikolay Heaton MD HEMATOLOGY ORDERABLES Edited Performing Organization Address [facility] Phone Number INTERFACE SYSTEM Refer to clinic/[facility] CLIA# [id number] [address] [place] [address] * VITAMIN B12 AND FOLATE (06/26/2008 10:20 AM TRACTOR DRIVER) VITAMIN B12 772 211 - 911 pg/dL [facility] FOLATE, SERUM 8.61 >=5.38 ng/dL [facility] Blood specimen (specimen) 06/26/2008 10:20 AM TRACTOR DRIVER 06/26/2008 9:00 PM TRACTOR DRIVER Nikolay Heaton MD CHEMISTRY ORDERABLES Final Resul t Performing Organization Address [facility] Phone Number INTERFACE SYSTEM Refer to clinic/hospital department [facility] CLIA# [id number] [address] [place] [address] documented in this encounter Visit Diagnoses Not on filedocumented in this encounter Care Teams Manager Underwriting Relationship Specialty Start Date End Date Danial Carmichael MD PCP - General Family Practice 11/26/12 06/26/18 documented as of this encounter
--- OUTSIDE RECORDS SUMMARY | 2025-07-23 11:53 | XMS_ITS | Encounter Summary ---
Author Organization [facility] Address [address] [place] [address] Care Team Providers Care Wool Sacker Name Role Phone Danial Carmichael MD Primary Care Provider +1- [phone] Encounter Details Date Type Department Care Team (Late st Contact Info) Description 09/10/2006 Outpatient Historical [address] [phone] Nikolay Heaton MD [address] [place] [phone] Open Wnd Knee/Leg/Ankle (Primary Dx); Allergic Rhinitis, Cause Unspecified Social History Tobacco Use Types Packs/Day Years Used Date Smoking Tobacco: Never Assessed Comments Unknown Sex and Gender Information Value Date Recorded Sex Assigned at Not on file Legal Sex Female 3:49 AM HEALTH SERVICES MANAGER Gender Identity Not on file Sexual Orientation Not on file documented as of this encounter Plan of Treatment Not on file documented as of this encounter Visit Diagnoses Diagnosis Open wound of knee, leg (except thigh), and ankle, without mention of complication- Primary Allergic rhinitis, cause unspecified documented in this encounter Care Teams Wool Sacker Relationship Specialty Start Date End Date Danial Carmichael MD PCP - General Family Practice 11/26/12 06/26/18 documented as of this encounter
--- OUTSIDE RECORDS SUMMARY | 2025-07-23 11:53 | XMS_ITS | Encounter Summary ---
Author Organization [facility] Address [address] [place] [address] Care Team Providers Care Assignment Officer Name Role Phone Danial Carmichael MD Primary Care Provider +1- [phone] Encounter Details Date Type Department Care Team (Late st Contact Info) Description 06/11/2006 Outpatient Historical [address] [phone] Nikolay Heaton MD [address] [place] [phone] Spasm of Muscle (Primary Dx) Social History Tobacco Use Types Packs/Day Years Used Date Smoking Tobacco: Never Assessed Comments Unknown Sex and Gender Information Value Date Recorded Sex Assigned at Not on file Legal Sex Female 3:49 AM 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
--- OUTSIDE RECORDS SUMMARY | 2025-07-23 11:53 | XMS_ITS | Encounter Summary ---
Author Organization [facility] Address [address] [place] [address] Care Team Providers Care Supervisor Detasseling Crew Name Role Phone Danial Carmichael MD Primary Care Provider +1- [phone] Encounter Details Date Type Department Care Team (Latest Contact Info) Description 07/02/2001 Outpatient Historical [facility] General Surgery- [address] [address] Enoc Crawford MD NO ADDRESS ON FILE SOLITARY CYST OF BREAST (Primary Dx); OVARIAN CYST NEC/NOS; SURGERY FOLLOWUP, UNSPEC Social History Tobacco Use Types Packs/Day Years Used Date Smoking Tobacco: Never Assessed Comments Unknown Sex and Gender Information Value Date Recorded Sex Assigned at Not on file Legal Sex Female 3:49 AM DRILL BIT SHARPENER Gender Identity Not on file Sexual Orientation Not on file documented as of this encounter Plan of Treatment Not on file documented as of this encounter Visit Diagnoses Diagnosis Solitary cyst of breast- Primary Other and unspecified ovarian cyst Follow-up examination, following unspecified surgery documented in this encounter Care Teams Supervisor Detasseling Crew Relationship Specialty Start Date End Date Danial Carmichael MD PCP - General Family Practice 11/26/12 06/26/18 documented as of this encounter
--- OUTSIDE RECORDS SUMMARY | 2025-07-23 11:53 | XMS_ITS | Encounter Summary ---
Author Organization [facility] Address [address] [place] [address] Care Team Providers Care Sales Operations Director Name Role Phone Danial Carmichael MD Primary Care Provider +1- [phone] Encounter Details Date Type Department Care Team (Latest Contact Info) Description 02/06/2007 Outpatient Historical [facility] [address] [address] Karlee Houston MD [address] [place] [phone] Unspecified Hemorrhoids without Mention of Complication (Primary Dx); Diarrhea Social History Tobacco Use Types Packs/Day Years Used Date Smoking Tobacco: Never Assessed Comments Unknown Sex and Gender Information Value Date Recorded Sex Assigned at Not on file Legal Sex Female 3:49 AM OBSTETRICS NURSE PRACTITIONER Gender Identity Not on file Sexual Orientation Not on file documented as of this encounter Plan of Treatment Not on file documented as of this encounter Visit Diagnoses Diagnosis Unspecified hemorrhoids without mention of complication- Primary Diarrhea documented in this encounter Care Teams Sales Operations Director Relationship Specialty Start Date End Date Danial Carmichael MD PCP - General Family Practice 11/26/12 06/26/18 documented as of this encounter
--- OUTSIDE RECORDS SUMMARY | 2025-07-23 11:53 | XMS_ITS | Encounter Summary ---
Author Organization [facility] Address [address] [place] [address] Care Team Providers Care Outsole Caser Name Role Phone Danial Carmichael MD Primary Care Provider +1- [phone] Encounter Details Date Type Department Care Team (Late st Contact Info) Description 09/26/2007 Outpatient Historical [address] [address] Karlee Houston MD [address] [place] [address] Social History Tobacco Use Types Packs/Day Years Used Date Smoking Tobacco: Never Assessed Comments Unknown Sex and Gender Information Value Date Recorded Sex Assigned at Not on file Legal Sex Female 3:49 AM EYE PHYSICIAN Gender Identity Not on file Sexual Orientation Not on file documented as of this encounter Plan of Treatment Not on file documented as of this encounter Visit Diagnoses Not on filedocumented in this encounter Care Teams Outsole Caser Relationship Specialty Start Date End Date Danial Carmichael MD PCP - General Family Practice 11/26/12 06/26/18 documented as of this encounter
--- OUTSIDE RECORDS SUMMARY | 2025-07-23 11:53 | XMS_ITS | Encounter Summary ---
Author Organization [facility] Address [address] [place] [address] Care Team Providers Care Route Sales Specialist Name Role Phone Danial Carmichael MD Primary Care Provider +1- [phone] Encounter Details Date Type Department Care Team (Late st Contact Info) Description 05/08/2006 Outpatient Historical [address] [phone] Nikolay Heaton MD [address] [place] [phone] Rash and Other Nonspecific Skin Eruption (Primary Dx); Cellulitis and Abscess of Unspecified Site Social History Tobacco Use Types Packs/Day Years Used Date Smoking Tobacco: Never Assessed Comments Unknown Sex and Gender Information Value Date Recorded Sex Assigned at Not on file 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
--- OUTSIDE RECORDS SUMMARY | 2025-07-23 11:53 | XMS_ITS | Encounter Summary ---
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
--- OUTSIDE RECORDS SUMMARY | 2025-07-23 11:53 | XMS_ITS | Encounter Summary ---
Author Organization [facility] Address [address] [place] [address] Care Team Providers Care Meat Team Member Name Role Phone Danial Carmichael MD Primary Care Provider +1- [phone] Encounter Details Date Type Department Care Team (Late st Contact Info) Description 10/23/2005 Outpatient Historical [facility] Medicine[address] [address] Nikolay Heaton MD [address] [place] [phone] Lymphadenitis, Unspecified, except Mesenteric (Primary Dx) Social History Tobacco Use Types Packs/Day Years Used Date Smoking Tobacco: Never Assessed Comments Unknown Sex and Gender Information Value Date Recorded Sex Assigned at Not on file Legal Sex Female 3:49 AM PIPEMAN Gender Identity Not on file Sexual Orientation Not on file documented as of this encounter Plan of Treatment Not on file documented as of this encounter Visit Diagnoses Diagnosis Lymphadenitis, unspecified, except mesenteric- Primary documented in this encounter Care Teams Meat Team Member Relationship Specialty Start Date End Date Danial Carmichael MD PCP - General Family Practice 11/26/12 06/26/18 documented as of this encounter
--- OUTSIDE RECORDS SUMMARY | 2025-07-23 11:54 | XMS_ITS | Encounter Summary ---
Author Organization [facility] Address [address] [place] [address] Care Team Providers Care Astronautical Engineer Name Role Phone Dainal Carmichael MD Primary Care Provider +1- [phone] Encounter Details Date Type Department Care Team (Latest Contact Info) Description 05/28/2001 Outpatient Historical [facility] General Surgery- [address] [address] Enoc Crawford MD NO ADDRESS ON FILE Follow-up examination, following unspecified surgery (Primary Dx) Social History Tobacco Use Types Packs/Day Years Used Date Smoking Tobacco: Never Assessed Comments Unknown Sex and Gender Information Value Date Recorded Sex Assigned at Not on file 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
--- OUTSIDE RECORDS SUMMARY | 2025-07-23 11:54 | XMS_ITS | Encounter Summary ---
Author Organization [facility] Address [address] [place] [address] Care Team Providers Care Plsql Developer Name Role Phone Danial Carmichael MD Primary Care Provider +1- [phone] Encounter Details Date Type Department Care Team (Latest Contact Info) Description 05/23/2004 Outpatient [facility] Medicine[address] [address] Nikolay Heaton MD [address] [place] [phone] UNSPEC CONSTIPATION (Primary Dx) Social History Tobacco Use Types Packs/Day Years Used Date Smoking Tobacco: Never Assessed Comments Unknown Sex and Gender Information Value Date Recorded Sex Assigned at Not on file Legal Sex Female 3:49 AM BUSINESS INTELLIGENCE ENGINEER Gender Identity Not on file Sexual Orientation Not on file documented as of this encounter Plan of Treatment Not on file documented as of this encounter Visit Diagnoses Diagnosis Unspecified constipation- Primary documented in this encounter Care Teams Plsql Developer Relationship Specialty Start Date End Date Danial Carmichael MD PCP - General Family Practice 11/26/12 06/26/18 documented as of this encounter
--- OUTSIDE RECORDS SUMMARY | 2025-07-23 11:54 | XMS_ITS | Encounter Summary ---
Author Organization [facility] Address [address] [place] [address] Care Team Providers Care Executive Office Manager Name Role Phone Danial Carmichael MD Primary Care Provider +1- [phone] Encounter Details Date Type Department Care Team (Latest Contact Info) Description 05/14/2001 Outpatient Historical [facility] Medicine[address] [address] Marco Antonio Townsend MD [address] [place] [phone] Acute bronchitis (Primary Dx); Tension headache Social History Tobacco Use Types Packs/Day Years Used Date Smoking Tobacco: Never Assessed Comments Unknown Sex and Gender Information Value Date Recorded Sex Assigned at Not on file Legal Sex Female 3:[address] DESIGNER Gender Identity Not on file Sexual Orientation Not on file documented as of this encounter Plan of Treatment Not on file documented as of this encounter Visit Diagnoses Diagnosis Acute bronchitis- Primary Tension headache documented in this encounter Care Teams Executive Office Manager Relationship Specialty Start Date End Date Danial Carmichael MD PCP - General Family Practice 11/26/12 06/26/18 documented as of this encounter
--- OUTSIDE RECORDS SUMMARY | 2025-07-23 11:54 | XMS_ITS | Encounter Summary ---
Author Organization [facility] Address [address] [place] [address] Care Team Providers Care Automotive Parts Interpreter Name Role Phone Danial Carmichael MD Primary Care Provider +1- [phone] Encounter Details Date Type Department Care Team (Latest Contact Info) Description 05/06/2002 Outpatient Historical [facility] Medicine[address] [address] Morris Medellin MD NO ADDRESS ON FILE CELLULITIS NOS (Primary Dx) Social History Tobacco Use Types Packs/Day Years Used Date Smoking Tobacco: Never Assessed Comments Unknown Sex and Gender Information Value Date Recorded Sex Assigned at Not on file Legal Sex Female 3:49 AM ADDICTION NURSE Gender Identity Not on file Sexual Orientation Not on file documented as of this encounter Plan of Treatment Not on file documented as of this encounter Visit Diagnoses Diagnosis Cellulitis and abscess of unspecified site- Primary documented in this encounter Care Teams Automotive Parts Interpreter Relationship Specialty Start Date End Date Danial Carmichael MD PCP - General Family Practice 11/26/12 06/26/18 documented as of this encounter
--- OUTSIDE RECORDS SUMMARY | 2025-07-23 11:54 | XMS_ITS | Encounter Summary ---
Author Organization [facility] Address [address] [place] [address] Care Team Providers Care Operations Developer Name Role Phone Danial Carmichael MD Primary Care Provider +1- [phone] Encounter Details Date Type Department Care Team (Latest Contact Info) Description 03/23/2001 Outpatient [facility] Medicine[address] [address] Torres Elizondo MD NO ADDRESS ON FILE Mastodynia (Primary Dx); Diffus cystic mastopathy Social History Tobacco Use Types Packs/Day Years Used Date Smoking Tobacco: Never Assessed Comments Unknown Sex and Gender Information Value Date Recorded Sex Assigned at Not on file 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
--- OUTSIDE RECORDS SUMMARY | 2025-07-23 11:54 | XMS_ITS | Encounter Summary ---
Author Organization [facility] Address [address] [place] [address] Care Team Providers Care Director Of Psychology Name Role Phone Danial Carmichael MD Primary Care Provider +1- [phone] Encounter Details Date Type Department Care Team (Latest Contact Info) Description 11/11/2002 Outpatient Historical [facility] General Surgery[address] [address] Enoc Crawford MD NO ADDRESS ON FILE MONONEURITIS LEG NOS (Primary Dx) Social History Tobacco Use Types Packs/Day Years Used Date Smoking Tobacco: Never Assessed Comments Unknown Sex and Gender Information Value Date Recorded Sex Assigned at Not on file Legal Sex Female 3:49 AM VEST MAKER Gender Identity Not on file Sexual Orientation Not on file documented as of this encounter Plan of Treatment Not on file documented as of this encounter Visit Diagnoses Diagnosis Mononeuritis of lower limb, unspecified- Primary documented in this encounter Care Teams Director Of Psychology Relationship Specialty Start Date End Date Danial Carmichael MD PCP - General Family Practice 11/26/12 06/26/18 documented as of this encounter
--- OUTSIDE RECORDS SUMMARY | 2025-07-23 11:54 | XMS_ITS | Encounter Summary ---
Author Organization [facility] Address [address] [place] [address] Care Team Providers Care Circle Beveler Name Role Phone Danial Carmichael MD Primary Care Provider +1- [phone] Encounter Details Date Type Department Care Team (Latest Contact Info) Description 04/13/2001 Outpatient [facility] [address] [place] [address] Laci Licona MD [address] [place] [address] Dyspepsia and other specified disorders of function of stomach (Primary Dx); Esophageal reflux; Irritable bowel syndrome; Abdominal pain, unspecified site Social History Tobacco Use Types Packs/Day Years Used Date Smoking Tobacco: Never Assessed Comments Unknown Sex and Gender Information Value Date Recorded Sex Assigned at Not on file Legal Sex Female 3:49 AM RESEARCH TECHNICIAN Gender Identity Not on file Sexual Orientation Not on file documented as of this encounter Plan of Treatment Not on file documented as of this encounter Visit Diagnoses Diagnosis Dyspepsia and other specified disorders of function of stomach- Primary Esophageal reflux Irritable bowel syndrome Abdominal pain, unspecified site documented in this encounter Care Teams Circle Beveler Relationship Specialty Start Date End Date Danial Carmichael MD PCP - General Family Practice 11/26/12 06/26/18 documented as of this encounter
--- OUTSIDE RECORDS SUMMARY | 2025-07-23 11:54 | XMS_ITS | Encounter Summary ---
Author Organization [facility] Address [address] [place] [address] Care Team Providers Care Sports Management Internship Name Role Phone Danial Carmichael MD Primary Care Provider +1- [phone] Encounter Details Date Type Department Care Team (Latest Contact Info) Description 02/26/2001 Outpatient Historical [facility] Medicine[address] [address] Marco Antonio Townsend MD [address] [place] [phone] Acute bronchitis (Primary Dx); Other dyspnea and respiratory abnormality Social History Tobacco Use Types Packs/Day Years Used Date Smoking Tobacco: Never Assessed Comments Unknown Sex and Gender Information Value Date Recorded Sex Assigned at Not on file Legal Sex Female 3:49 AM CAN LINE OPERATOR Gender Identity Not on file Sexual Orientation Not on file documented as of this encounter Plan of Treatment Not on file documented as of this encounter Visit Diagnoses Diagnosis Acute bronchitis- Primary Other dyspnea and respiratory abnormality documented in this encounter Care Teams Sports Management Internship Relationship Specialty Start Date End Date Danial Carmichael MD PCP - General Family Practice 11/26/12 06/26/18 documented as of this encounter
--- OUTSIDE RECORDS SUMMARY | 2025-07-23 11:54 | XMS_ITS | Encounter Summary ---
Author Organization [facility] Address [address] [place] [address] Care Team Providers Care Outdoor Adventure Instructor Name Role Phone Danial Carmichael MD Primary Care Provider +1- [phone] Encounter Details Date Type Department Care Team (Latest Contact Info) Description 05/16/2001 Outpatient Historical [facility] Medicine[address] [address] Sena Thao MD [address] [place] [address] Dysplasia of cervix (uteri) (Primary Dx); Unspecified symptom associated with female genital organs Social History Tobacco Use Types Packs/Day Years Used Date Smoking Tobacco: Never Assessed Comments Unknown Sex and Gender Information Value Date Recorded Sex Assigned at Not on file Legal Sex Female 3:49 AM 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
--- OUTSIDE RECORDS SUMMARY | 2025-07-23 11:54 | XMS_ITS | Encounter Summary ---
Author Organization [facility] Address [address] [place] [address] Care Team Providers Care Lighting Specialist Name Role Phone Danial Carmichael MD Primary Care Provider +1- [phone] Encounter Details Date Type Department Care Team (Late st Contact Info) Description 08/01/2004 Outpatient Historical [address] [address] Nikolay Heaton MD [address] [place] [phone] BRONCHITIS NOS (Primary Dx) Social History Tobacco Use Types Packs/Day Years Used Date Smoking Tobacco: Never Assessed Comments Unknown Sex and Gender Information Value Date Recorded Sex Assigned at Not on file Legal Sex Female 3:49 AM ACUTE CARE NURSING ASSISTANT Gender Identity Not on file Sexual Orientation Not on file documented as of this encounter Plan of Treatment Not on file documented as of this encounter Visit Diagnoses Diagnosis Bronchitis, not specified as acute or chronic- Primary documented in this encounter Care Teams Lighting Specialist Relationship Specialty Start Date End Date Danial Carmichael MD PCP - General Family Practice 11/26/12 06/26/18 documented as of this encounter
--- OUTSIDE RECORDS SUMMARY | 2025-07-23 11:54 | XMS_ITS | Encounter Summary ---
Author Organization [facility] Address [address] [place] [address] Care Team Providers Care Discovery Guide Name Role Phone Danial Carmichael MD Primary Care Provider +1- [phone] Encounter Details Date Type Department Care Team (Late st Contact Info) Description 05/23/2004 Outpatient Historical [address] [address] Nikolay Heaton MD [address] [place] [phone] Social History Tobacco Use Types Packs/Day Years Used Date Smoking Tobacco: Never Assessed Comments Unknown Sex and Gender Information Value Date Recorded Sex Assigned at Not on file Legal Sex Female 3:49 AM AGRICULTURAL EXTENSION OFFICER Gender Identity Not on file Sexual Orientation Not on file documented as of this encounter Plan of Treatment Not on file documented as of this encounter Visit Diagnoses Not on filedocumented in this encounter Care Teams Discovery Guide Relationship Specialty Start Date End Date Danial Carmichael MD PCP - General Family Practice 11/26/12 06/26/18 documented as of this encounter
--- OUTSIDE RECORDS SUMMARY | 2025-07-23 11:54 | XMS_ITS | Encounter Summary ---
Author Organization [facility] Address [address] [place] [address] Care Team Providers Care Director Oracle Retail Name Role Phone Danial Carmichael MD Primary Care Provider +1- [phone] Encounter Details Date Type Department Care Team (Late st Contact Info) Description 02/27/2005 Outpatient Historical [address] [address] Nikolay Heaton MD [address] [place] [phone] URIN TRACT INFECTION NOS (Primary Dx) Social History Tobacco Use Types Packs/Day Years Used Date Smoking Tobacco: Never Assessed Comments Unknown Sex and Gender Information Value Date Recorded Sex Assigned at Not on file Legal Sex Female 3:49 AM 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
--- OUTSIDE RECORDS SUMMARY | 2025-07-23 11:54 | XMS_ITS | Encounter Summary ---
Author Organization [facility] Address [address] [place] [address] Care Team Providers Care Rating Examiner Name Role Phone Danial Carmichael MD Primary Care Provider +1- [phone] Encounter Details Date Type Department Care Team (Latest Contact Info) Description 10/15/2001 Outpatient Historical [facility] Medicine[address] [address] Marco Antonio Townsend MD [address] [place] [phone] ACUTE SINUSITIS NOS (Primary Dx) Social History Tobacco Use Types Packs/Day Years Used Date Smoking Tobacco: Never Assessed Comments Unknown Sex and Gender Information Value Date Recorded Sex Assigned at Not on file Legal Sex Female 3:49 AM TIRE VULCANIZER Gender Identity Not on file Sexual Orientation Not on file documented as of this encounter Plan of Treatment Not on file documented as of this encounter Visit Diagnoses Diagnosis Acute sinusitis, unspecified- Primary documented in this encounter Care Teams Rating Examiner Relationship Specialty Start Date End Date Danial Carmichael MD PCP - General Family Practice 11/26/12 06/26/18 documented as of this encounter
--- OUTSIDE RECORDS SUMMARY | 2025-07-23 11:54 | XMS_ITS | Encounter Summary ---
Author Organization [facility] Address [address] [place] [address] Care Team Providers Care Embossing Machine Operator Name Role Phone Danial Carmichael MD Primary Care Provider +1- [phone] Encounter Details Date Type Department Care Team (Latest Contact Info) Description 04/01/2001 Outpatient Historical [facility] Medicine[address] [address] Marco Antonio Townsend MD [address] [place] [phone] Abdominal pain, right lower quadrant (Primary Dx); Urinary tract infection, site not specified Social History Tobacco Use Types Packs/Day Years Used Date Smoking Tobacco: Never Assessed Comments Unknown Sex and Gender Information Value Date Recorded Sex Assigned at Not on file Legal Sex Female 3:49 AM PIPE AND TEST SUPERVISOR Gender Identity Not on file Sexual Orientation Not on file documented as of this encounter Plan of Treatment Not on file documented as of this encounter Visit Diagnoses Diagnosis Abdominal pain, right lower quadrant- Primary Urinary tract infection, site not specified documented in this encounter Care Teams Embossing Machine Operator Relationship Specialty Start Date End Date Danial Carmichael MD PCP - General Family Practice 11/26/12 06/26/18 documented as of this encounter
--- OUTSIDE RECORDS SUMMARY | 2025-07-23 11:54 | XMS_ITS | Encounter Summary ---
Author Organization [facility] Address [address] [place] [address] Care Team Providers Care Assistant Professor Of Chemistry Name Role Phone Danial Carmichael MD Primary Care Provider +1- [phone] Encounter Details Date Type Department Care Team (Latest Contact Info) Description 05/21/2001 Outpatient Historical [facility] General Surgery[address] [address] Enoc Crawford MD NO ADDRESS ON FILE Unspecified symptom associated with female genital organs (Primary Dx); Abn Pap Smear-Cervix; Neoplasm of uncertain behavior of other specified sites; Gynecologic examination Social History Tobacco Use Types Packs/Day Years Used Date Smoking Tobacco: Never Assessed Comments Unknown Sex and Gender Information Value Date Recorded Sex Assigned at Not on file Legal Sex Female 3:49 AM CERAMIST Gender Identity Not on file Sexual Orientation Not on file documented as of this encounter Plan of Treatment Not on file documented as of this encounter Visit Diagnoses Diagnosis Unspecified symptom associated with female genital organs- Primary Abn Pap Smear-Cervix Abnormal Papanicolaou smear of cervix and cervical HPV 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
--- OUTSIDE RECORDS SUMMARY | 2025-07-23 11:54 | XMS_ITS | Encounter Summary ---
Author Organization [facility] Address [address] [place] [address] Care Team Providers Care Script Worker Name Role Phone Danial Carmichael MD Primary Care Provider +1- [phone] Encounter Details Date Type Department Care Team (Latest Contact Info) Description 04/11/[address] 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
--- OUTSIDE RECORDS SUMMARY | 2025-07-23 11:55 | XMS_ITS | Encounter Summary ---
Author Organization [facility] Address [address] [place] [address] Care Team Providers Care Filter Press Tender Name Role Phone Danial Carmichael MD Primary Care Provider +1- [phone] Encounter Details Date Type Department Care Team (Late st Contact Info) Description 07/04/2008 Outpatient Historical [facility] [place] [address] [facility] Social History Tobacco Use Types Packs/Day Years Used Date Smoking Tobacco: Never Assessed Comments Unknown Sex and Gender Information Value Date Recorded Sex Assigned at Not on file 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
--- OUTSIDE RECORDS SUMMARY | 2025-07-23 11:55 | XMS_ITS | Clinical Summary ---
Author Organization [facility] Address [address] [place] [address] Care Team Providers Care Forge Utility Worker Name Role Phone Unavailable Primary Care Provider Unavailabl e Allergies Active Allergy Reactions Criticality Noted Date Comments Hydrocodone Itching High 07/23/2008 Medications ibuprofen (ADVIL) 200 mg tablet Take 600 mg by mouth every 6 hours as needed for Pain, Mild. Active diphenhydrAMINE (BENADRYL) 25 mg tablet Take 50 mg by mouth every 6 hours as needed for Allergies. 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 Injury of meniscus of knee 08/20/2014 Sciatica neuralgia 10/16/2013 GERD (gastroesophageal reflux disease) 2 Acute pharyngitis 08/25/2011 Middle ear effusion 08/25/2011 Restrictive lung disease 09/28/2008 Suture removal 07/29/2008 Sepsis, Gram positive S/P thoracostomy tube placement S/P thoracotomy Overview (07/23/2008): Pleural decortication Streptococcus pneumoniae infection Respiratory failure Fever Empyema Renal insufficiency Immunizations Immunization Administration Dates Next Due (TDVAX)(7 [...] Years Used Date Smoking Tobacco: Former Cigarettes 0 Q uit: 06/14/2008 Smokeless Tobacco: Never Alcohol Use Standard Drinks/Week Comments Yes 42 (1 standard drink = 0.6 oz pu re alcohol) Comments No Sex and Gender Information Value Date Recorded Sex Assigned at Not on file Legal Sex Female 3:49 AM HEALTH SERVICES MANAGER Gender Identity Not on file Sexual Orientation Not on file Occupation Industry Job Start Date Job End Date Not on file Not on file Not on file Not on file Last Filed Vital Signs Vital Sign Reading Time Taken Comments Blood Pressure 131/94 05/23/2020 11:08 AM CDT Pulse 76 05/23/2020 11:08 AM CDT Temperature 37 C (98.6 F) 05/23/2020 11:08 AM CDT Respiratory Rate 18 05/23/2020 11:08 AM CDT Oxygen Saturation 98% 05/23/2020 11:08 AM CDT Inhaled Oxygen Concentration - - Weight 84.8 kg (187 lb) 05/23/2020 11:08 AM CDT Height 162.6 cm (5' 4) 05/23/2020 11:08 AM CDT Body Mass Index 32.1 05/23/2020 11:08 AM CDT Plan of Treatment Health Maintenance Due Date Last Done Comments COLORECTAL SCREENING 2003 FIT-DNA Q 3 years 2003 Flex Sig/CT Colonography Q 5 years 2003 DTAP/TDAP/TD VACCINES (1 - Tdap) 01/17/2008 01/16/20 08 Colorectal Cancer Screening 02/07/2008 FIT/FOBT Q 1 year 02/07/2008 02/06/2007 PNEUMOCOCCAL VACCINE 50+ YEA RS (1 of 1 - PCV) 2008 ZOSTER VACCINE (1 of 2) 2008 BREAST CANCER SCREENING 07/24/2017 07/24/2016, 11/26 OSTEOPOROSIS SCREENING 2023 INFLUENZA VACCINE (#1) 2025 1, 07/18/2010, 05/31/2009, Additional history exists RSV VACCINE (60+ or ) (1 - 1-dose 75+ series) 2033 Procedures Procedure Name Priority Date/Time Associated Diagnosis Comments MAMMO SCREEN BILAT W OR WO CAD Routine 07/24/2016 2:47 PM HEALTH SERVICES MANAGER Visit for screening mammogram from Last 3 Months or Most Recently Relevant to Health Maintenance Results * MAMMO DIGITAL SCREEN BILAT (07/24/2016 2:47 PM HEALTH SERVICES MANAGER) Anatomical Region Laterality Modality Breast Bilateral Mammography 07/24/2016 2:47 PM HEALTH SERVICES MANAGER Impressions 07/26/2016 2:41 PM HEALTH SERVICES MANAGER IMPRESSION: Possible new nodule on the left will require additional evaluation. I recommend straight mediolateral image with compressed magnified CC and ML images, and ultrasound will probably be necessary. [id number] Narrative 07/26/2016 2:41 PM HEALTH SERVICES MANAGER BILATERAL DIGITAL SCREENING MAMMOGRAM: Repeat examination on [...] by the Computer Aided Detection System (CAD), [employer] ImageChecker, Version 8.3. Keyona Keller APRN MAMMO ORDERABLES Fi nal Result from Last 3 Months or Most Recently Relevant to Health Maintenance Insurance [employer]
--- OUTSIDE RECORDS SUMMARY | 2025-07-23 11:55 | XMS_ITS | Encounter Summary ---
Author Organization [facility] Address [address] [place] [address] Care Team Providers Care Sheet Music Salesperson Name Role Phone Danial Carmichael MD Primary Care Provider +1- [phone] Reason for Referral * Outpatient Services (Routine) - Closed Specialty Diagnoses / Procedures Referred By Bert al Referred To Contact Diagnoses Visit for screening mammogram Procedures MAMMO DIGITAL SCREEN Keyona Elkins, WAX ENGRAVER Phone: tel: fax: [facility] [place] [address] [address] Referral ID Status Reason Start Date Expiration Date V isits Requested Visits Authorized [id number] Closed BRYV CTS to Schedule (SGF) 06/29/2016 07/30/2017 1 1 ER BLOCK CUTTER Encounter Details Date Type Department Care Team (Late st Contact Info) Description 06/29/2016 Ancillary Orders [facility] [place] [facility] [address] [place] [phone] Keyona Keller, WAX ENGRAVER [address] [place] [phone] Visit for screening mammogram (Primary Dx) Social History Tobacco Use Types Packs/Day Years Used Date Smoking Tobacco: Former Cigarettes 0 Q uit: 06/14/2008 Alcohol Use Standard Drinks/Week Comments No 0 (1 standard drink = 0.6 oz pur e alcohol) Comments No Sex and Gender Information Value Date Recorded Sex Assigned at Not on file Legal Sex Female 3:49 AM CORNER BLOCK CUTTER Gender Identity Not on file Sexual Orientation Not on file Occupation Industry Job Start Date Job End Date Not on file Not on file Not on file Not on file documented as of this encounter Plan of Treatment Not on file documented as of this encounter Results * MAMMO DIGITAL SCREEN BILAT (07/24/2016 2:47 PM CORNER BLOCK CUTTER) Anatomical Region Laterality Modality Breast Bilateral Mammography 07/24/2016 2:47 PM CORNER BLOCK CUTTER Impressions 07/26/2016 2:41 PM CORNER BLOCK CUTTER IMPRESSION: Possible new nodule on the left will require additional evaluation. I recommend straight mediolateral image with compressed magnified CC and ML images, and ultrasound will probably be necessary. [id number] Narrative 07/26/2016 2:41 PM CORNER BLOCK CUTTER BILATERAL DIGITAL SCREENING MAMMOGRAM: Repeat examination on [...] by the Computer Aided Detection System (CAD), [employer] ImageChecker, Version 8.3. Keyona Keller APRN MAMMO ORDERABLES Fi nal Result documented in this encounter Visit Diagnoses Diagnosis Visit for screening mammogram- Primary Other screening mammogram Visit for screening mammogram Other screening mammogram documented in this encounter Care Teams Sheet Music Salesperson Relationship Specialty Start Date End Date Danial Carmichael MD PCP - General Family Practice 11/26/12 06/26/18 documented as of this encounter
--- OUTSIDE RECORDS SUMMARY | 2025-07-23 11:55 | XMS_ITS | Encounter Summary ---
Author Organization [facility] Address [address] [place] [address] Care Team Providers Care Building Associate Name Role Phone Danial Carmichael MD Primary Care Provider +1- [phone] Encounter Details Date Type Department Care Team (Late st Contact Info) Description 01/03/2018 Ancillary Orders [facility] [address] [address] Keyona Keller, COT ASSEMBLER [address] [place] [address] Acute right ankle pain; Left lateral knee pain Social History Tobacco Use Types Packs/Day Years Used Date Smoking Tobacco: Former Cigarettes 0 Q uit: 06/14/2008 Alcohol Use Standard Drinks/Week Comments No 0 (1 standard drink = 0.6 oz pur e alcohol) Comments No Sex and Gender Information Value Date Recorded Sex Assigned at Not on file Legal Sex Female 3:49 AM ANSWERING SERVICE AGENT Gender Identity Not on file Sexual Orientation Not on file Occupation Industry Job Start Date Job End Date Not on file Not on file Not on file Not on file documented as of this encounter Plan of Treatment Not on file documented as of this encounter Results * XR ANKLE 3+ VW RIGHT (01/03/2018 4:28 PM CDT) Anatomical Region Laterality Modality Ankle / Foot Computed Radiogr aphy 01/03/2018 4:28 PM CDT Impressions 01/04/2018 11:26 AM CDT IMPRESSION: Please see below. Exam: XR ANKLE 3+ VW RIGHT Date/Time of Exam: 01/03/2018 4:28 PM Reason For Exam: Acute right ankle pain. Comparison: None FINDINGS: AP, lateral and oblique projections show no acute fracture or dislocation. Joint spaces grossly preserved. Mild calcaneal enthesopathy. Soft tissue swelling medially. Narrative Procedure Note Salomón Mathews, - 01/04/2018 IMPRESSION: Please see below. Exam: XR ANKLE 3+ VW RIGHT Date/Time of Exam: 01/03/2018 4:28 PM Reason For Exam: Acute right ankle pain. Comparison: None FINDINGS: AP, lateral and oblique projections show no acute fracture or dislocation. Joint spaces grossly preserved. Mild calcaneal enthesopathy. Soft tissue swelling medially. Keyona Keller APRN DIAGNOSTIC IMAGING ORDERABLES Final Result * XR KNEE 1 OR 2 VW LEFT (01/03/2018 4:25 PM CDT) Anatomical Region Laterality Modality Lower Extremity Computed Radiogr aphy 01/03/2018 4:25 PM CDT Impressions 01/04/2018 10:48 AM CDT IMPRESSION: Please see below. Exam: XR KNEE 1 OR 2 VW LEFT Date/Time of Exam: 01/03/2018 4:25 PM Reason For Exam: Left lateral knee pain. Comparison: August 11, 2015 FINDINGS: Frontal and lateral projection show mild medial tibiofemoral and patellofemoral osteoarthrosis similar to the prior study. No acute fracture identified. There appear to be possibly one or two intra-articular bodies present. No joint effusion or soft tissue abnormality. Narrative Procedure Note Salomón Mathews, DO - 01/04/2018 IMPRESSION: Please see below. Exam: XR KNEE 1 OR 2 VW LEFT Date/Time of Exam: 01/03/2018 4:25 PM Reason For Exam: Left lateral knee pain. Comparison: August 11, 2015 FINDINGS: Frontal and lateral projection show mild medial tibiofemoral and patellofemoral osteoarthrosis similar to the prior study. No acute fracture identified. There appear to be possibly one or two intra-articular bodies present. No joint effusion or soft tissue abnormality. us Keyona Keller APRN DIAGNOSTIC IMAGING ORDERABLES Final Result documented in this encounter Visit Diagnoses Diagnosis Acute right ankle pain Left lateral knee pain Pain in joint, lower leg Acute right ankle pain Left lateral knee pain Pain in joint, lower leg documented in this encounter Care Teams Building Associate Relationship Specialty Start Date End Date Danial Carmichael MD PCP - General Family Practice 11/26/12 06/26/18 documented as of this encounter
--- OUTSIDE RECORDS SUMMARY | 2025-07-23 11:55 | XMS_ITS | Encounter Summary ---
Author Organization [facility] Address [address] [place] [address] Care Team Providers Care Stud Dairy Cattle Farmer Name Role Phone Danial Carmichael MD Primary Care Provider +1- [phone] Reason for Referral * Outpatient Services (Routine) - Closed Specialty Diagnoses / Procedures Referred By Contac t Referred To Contact Diagnoses Other screening mammogram Procedures MAMMO DIGITAL SCREEN BILAT Danial Carmichael MD [address] [place] [address] Phone: tel: fax: Referral ID Status Reason Start Date Expiration Date Visits Re quested Visits Authorized [id number] Closed 11/26/2012 12/27/2013 1 1 Encounter Details Date Type Department Care Team (Late st Contact Info) Description 11/26/2012 Ancillary Orders [address] [address] Danial Carmichael MD [address] [place] [address] Other screening mammogram (Primary Dx) Social History Tobacco Use Types Packs/Day Years Used Date Smoking Tobacco: Former Cigarettes 0 Q uit: 06/14/2008 Alcohol Use Standard Drinks/Week Comments No 0 (1 standard drink = 0.6 oz pur e alcohol) Comments No Sex and Gender Information Value Date Recorded Sex Assigned at Not on file Legal Sex Female 3:49 AM CANVASSING MANAGER Gender Identity Not on file Sexual Orientation Not on file Occupation Industry Job Start Date Job End Date Not on file Not on file Not on file Not on file documented as of this encounter Plan of Treatment Not on file documented as of this encounter Results * MAMMO DIGITAL SCREEN BILAT (11/26/2012 1:53 PM CDT) Anatomical Region Laterality Modality Breast Bilateral Mammography 11/26/2012 1:40 PM CDT Impressions 11/29/2012 2:04 PM CDT Impression: Benign findings BI-RADS two. Recommend routine screening mammogram in accordance with the [employer] guidelines. Any decision to further evaluate this patient may be based on clinical grounds. argelia - uploaded from [employer] - Narrative 11/29/2012 2:04 PM CDT This mammogram was also analyzed by the Computer Aided Detection System (CAD), [employer] ImageChecker, Version 8.7. Compared to prior study October 20, 2003. Description: Bilateral cc and MLO views performed of the breasts. Findings: Scattered fibroglandular tissue within the breasts bilaterally with no suspicious mass or architectural distortion. No abnormal skin thickening or nipple retraction. No suspicious cluster of microcalcifications in either breast. Procedure Note Armando Patino MD - 11/29/2012 This mammogram was also analyzed by the Computer Aided Detection System (CAD), [employer] ImageChecker, Version 8.7. Compared to prior study October 20, 2003. Description: Bilateral cc and MLO views performed of the breasts. Findings: Scattered fibroglandular tissue within the breasts bilaterally with no suspicious mass or architectural distortion. No abnormal skin thickening or nipple retraction. No suspicious cluster of microcalcifications in either breast. IMPRESSION Impression: Benign findings BI-RADS two. Recommend routine screening mammogram in accordance with the [employer] guidelines. Any decision to further evaluate this patient may be based on clinical grounds. argelia - uploaded from Power Scribe - us Danial Carmichael MD MAMMO ORDERABLES Final Res ult documented in this encounter Visit Diagnoses Diagnosis Other screening mammogram- Primary Other screening mammogram documented in this encounter Care Teams Stud Dairy Cattle Farmer Relationship Specialty Start Date End Date Danial Carmichael MD PCP - General Family Practice 11/26/12 06/26/18 documented as of this encounter
--- OUTSIDE RECORDS SUMMARY | 2025-07-23 11:55 | XMS_ITS | Encounter Summary ---
Author Organization [facility] Address [address] [place] [address] Care Team Providers Care Farmworker Pullet Farm Name Role Phone Danial Carmichale MD Primary Care Provider +1- [phone] Encounter Details Date Type Department Care Team (Late st Contact Info) Description 07/28/2016 Ancillary Orders [facility] [address] [facility] [address] [place] [address] Keyona Keller, SUPERVISOR COMPOSING ROOM [address] [facility] [address] [place] [address] Inconclusive mammogram Social History Tobacco Use Types Packs/Day Years Used Date Smoking Tobacco: Former Cigarettes 0 Q uit: 06/14/2008 Alcohol Use Standard Drinks/Week Comments No 0 (1 standard drink = 0.6 oz pur e alcohol) Comments No Sex and Gender Information Value Date Recorded Sex Assigned at Not on file Legal Sex Female 3:49 AM NUCLEAR SUPERVISING OPERATOR Gender Identity Not on file Sexual Orientation Not on file Occupation Industry Job Start Date Job End Date Not on file Not on file Not on file Not on file documented as of this encounter Plan of Treatment Not on file documented as of this encounter Visit Diagnoses Diagnosis Inconclusive mammogram documented in this encounter Care Teams Farmworker Pullet Farm Relationship Specialty Start Date End Date Danial Carmichael MD PCP - General Family Practice 11/26/12 06/26/18 documented as of this encounter
--- OUTSIDE RECORDS SUMMARY | 2025-07-23 11:55 | XMS_ITS | Clinical Summary ---
Author Organization [facility] Address [address] [place]: Epic Prelude ADT [place] [address] Care Team Providers Care Last Greaser Name Role Phone Unavailable Primary Care Provider [...] on file Legal Sex Female 9:43 AM FLOOR REPRESENTATIVE Gender Identity Not on file Sexual Orientation [...] 11/26/2012 OSTEOPOROSIS SCREENING 2023 INFLUENZA VACCINE (#1) 2025 1, 07/18/2010, 05/31/2009, Additional history exists RSV VACCINE (60+ or ) (1 - 1-dose 75+ series) 2033 Procedures Procedure Name Priority Date/Time Associated Diagnosis Comments MAMMO SCREEN BILAT W OR WO CAD Routine 07/24/2016 2:47 PM FLOOR REPRESENTATIVE Visit for screening mammogram from Last 3 Months or Most Recently Relevant to Health Maintenance Results * MAMMO SCREEN BILAT W OR WO CAD (07/24/2016 2:47 PM FLOOR REPRESENTATIVE) Anatomical Region Laterality Modality Breast Bilateral Other Impressions 07/26/2016 2:41 PM FLOOR REPRESENTATIVE Possible new nodule on the left will require additional evaluation. I recommend straight mediolateral image with compressed magnified CC and ML images, and ultrasound will probably be necessary. [id number] Narrative 07/26/2016 2:41 PM FLOOR REPRESENTATIVE BILATERAL DIGITAL SCREENING MAMMOGRAM: Repeat examination on [...] by the Computer Aided Detection System (CAD), [employer] ImageChecker, Version 8.3. Procedure Note Jaziel Baeza [...] by the Computer Aided Detection System (CAD), [employer] ImageZuga Medicalcker, Version 8.3. IMPRESSION Possible new nodule on the left will require additional evaluation. I recommend straight mediolateral image with compressed magnified CC and ML images, and ultrasound will probably be necessary. [id number] us Keyona Keller APRN MAMMO ORDERABLES Fi nal Result from Last 3 Months or Most Recently Relevant to Health Maintenance
--- OUTSIDE RECORDS SUMMARY | 2025-07-23 11:55 | XMS_ITS | Encounter Summary ---
Author Organization [facility] Address [address] [place] [address] Care Team Providers Care Administrative Support Coordinator Name Role Phone Danial Carmichael MD Primary Care Provider +1- [phone] Encounter Details Date Type Department Care Team (Latest Contact Info) Description 06/04/2001 Outpatient Historical [facility] General Surgery- [address] [phone] Enoc Crawford MD NO ADDRESS ON FILE Leiomyoma of uterus, unspecified (Primary Dx); Follow-up examination, following unspecified surgery Social History Tobacco Use Types Packs/Day Years Used Date Smoking Tobacco: Never Assessed Comments Unknown Sex and Gender Information Value Date Recorded Sex Assigned at Not on file Legal Sex Female 3:49 AM TOUCHER UP Gender Identity Not on file Sexual Orientation Not on file documented as of this encounter Plan of Treatment Not on file documented as of this encounter Visit Diagnoses Diagnosis Leiomyoma of uterus, unspecified- Primary Follow-up examination, following unspecified surgery documented in this encounter Care Teams Administrative Support Coordinator Relationship Specialty Start Date End Date Danial Carmichael MD PCP - General Family Practice 11/26/12 06/26/18 documented as of this encounter
--- OUTSIDE RECORDS SUMMARY | 2025-07-23 11:55 | XMS_ITS | Encounter Summary ---
Author Organization [facility] Address [address] [place] [address] Care Team Providers Care Log Chain Feeder Name Role Phone Danial Carmichael MD Primary Care Provider +1- [phone] Encounter Details Date Type Department Care Team (Late st Contact Info) Description 11/26/2012 Ancillary Orders [facility] Services [address] [address] Danial Carmichael MD [address] [place] [id number] Social History Tobacco Use Types Packs/Day Years Used Date Smoking Tobacco: Former Cigarettes 0 Q uit: 06/14/2008 Alcohol Use Standard Drinks/Week Comments No 0 (1 standard drink = 0.6 oz pur e alcohol) Comments No Sex and Gender Information Value Date Recorded Sex Assigned at Not on file Legal Sex Female 3:49 AM CUTTER OPERATOR Gender Identity Not on file Sexual Orientation Not on file Occupation Industry Job Start Date Job End Date Not on file Not on file Not on file Not on file documented as of this encounter Plan of Treatment Not on file documented as of this encounter Visit Diagnoses Not on filedocumented in this encounter Care Teams Log Chain Feeder Relationship Specialty Start Date End Date Danial Carmichael MD PCP - General Family Practice 11/26/12 06/26/18 documented as of this encounter
--- OUTSIDE RECORDS SUMMARY | 2025-07-23 11:55 | XMS_ITS | Encounter Summary ---
Author Organization [facility] Address [address] [place] [address] Care Team Providers Care Community Development Worker Name Role Phone Danial Carmichael MD Primary Care Provider +1- [phone] Encounter Details Date Type Department Care Team (Latest Contact Info) Description 01/07/2001 Outpatient Historical [facility] Medicine[address] [phone] Marco Antonio Townsend MD [address] [place] [phone] Intestinal infection due to other organism, not elsewhere classified (Primary Dx) Social History Tobacco Use Types Packs/Day Years Used Date Smoking Tobacco: Never Assessed Comments Unknown Sex and Gender Information Value Date Recorded Sex Assigned at Not on file Legal Sex Female 3:49 AM MANAGING PARTNER [employer] [place] Gender Identity Not on file Sexual Orientation Not on file documented as of this encounter Plan of Treatment Not on file documented as of this encounter Visit Diagnoses Diagnosis Intestinal infection due to other organism, not elsewhere classified- Primary documented in this encounter Care Teams Community Development Worker Relationship Specialty Start Date End Date Danial Carmichael MD PCP - General Family Practice 11/26/12 06/26/18 documented as of this encounter
--- OUTSIDE RECORDS SUMMARY | 2025-07-23 11:55 | XMS_ITS | Encounter Summary ---
Author Organization [facility] Address [address] [place] [address] Care Team Providers Care Assistant Floor Covering Printer Name Role Phone Danial Carmichael MD Primary Care Provider +1- [phone] Encounter Details Date Type Department Care Team (Latest Contact Info) Description 12/21/2000 Outpatient Historical [facility] Medicine[address] [phone] Sena Thao MD [address] [place] [phone] Dysplasia of cervix (uteri) (Primary Dx); Tobacco use disorder; Arthropathy, unspecified, site unspecified Social History Tobacco Use Types Packs/Day Years Used Date Smoking Tobacco: Never Assessed Comments Unknown Sex and Gender Information Value Date Recorded Sex Assigned at Not on file 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
--- OUTSIDE RECORDS SUMMARY | 2025-07-23 11:55 | XMS_ITS | Encounter Summary ---
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 Name Role Phone Danial Carmichael MD Primary Care Provider [phone] Encounter Details Date Type Department Care Team (Late st Contact Info) Description 07/04/2008 Outpatient Historical HIS IN BED Jean Claude Vann MD [address] [place] [address] Karen Jones MD [address] [place] [address] Karen Brooke MD NO ADDRESS ON FILE Pneumonia, Organism Unspecified Social History Tobacco Use Types Packs/Day Years Used Date Smoking Tobacco: Never Assessed Comments Unknown Sex and Gender Information Value Date Recorded Sex Assigned at Not on file Legal Sex Female 3:[address] MAGISTRATE Gender Identity Not on file Sexual Orientation Not on file documented as of this encounter Plan of Treatment Not on file documented as of this encounter Procedures Procedure Name Priority Date/Time Associated Diagnosis Comments POC BLOOD GAS, LYTES AND H+H Stat 07/14/2008 1:[address] MAGISTRATE POC BLOOD GAS, LYTES AND H+H Stat 07/14/2008 11:[address] MAGISTRATE XR CHEST PA AND LATERAL 2 VW Routine 07/14/2008 8:[address] MAGISTRATE POC GLUCOSE Routine 07/14/2008 7:[address] MAGISTRATE BASIC METABOLIC PANEL Routine 07/14/2008 6:[address] MAGISTRATE CBC WITH DIFFERENTIAL Routine 07/14/2008 6:[address] MAGISTRATE POC GLUCOSE Routine 07/13/2008 9:[address] MAGISTRATE POC GLUCOSE Routine 07/13/2008 5:[address] MAGISTRATE POC GLUCOSE Routine 07/13/2008 11:[address] MAGISTRATE POC GLUCOSE Routine 07/13/2008 7:[address] MAGISTRATE CBC WITH DIFFERENTIAL Routine 07/13/2008 5:[address] MAGISTRATE COMPREHENSIVE METABOLIC PANEL Routine 07/13/2008 5:[address] MAGISTRATE POC GLUCOSE Routine 07/12/2008 8:[address] MAGISTRATE POC GLUCOSE Routine 07/12/2008 4:[address] MAGISTRATE XR CHEST PA AND LATERAL 2 VW Routine 07/11/2008 8:[address] MAGISTRATE CBC WITH DIFFERENTIAL Routine 07/11/2008 5:[address] MAGISTRATE COMPREHENSIVE METABOLIC PANEL Routine 07/11/2008 5:[address] MAGISTRATE XR CHEST PA OR AP 1 VW Routine 8 7:[address] MAGISTRATE CBC WITH DIFFERENTIAL Routine 07/10/2008 5:[address] MAGISTRATE COMPREHENSIVE METABOLIC PANEL Routine 07/10/2008 5:[address] MAGISTRATE POC GLUCOSE Routine 07/09/2008 5:[address] MAGISTRATE XR CHEST PA OR AP 1 VW Routine 8 4:[address] MAGISTRATE CBC WITH DIFFERENTIAL Routine 07/09/2008 3:[address] MAGISTRATE PREALBUMIN Routine 07/09/2008 3:[address] MAGISTRATE BILIRUBIN DIRECT Routine 07/09/2008 3:[address] MAGISTRATE COMPREHENSIVE METABOLIC PANEL Routine 07/09/2008 3:[address] MAGISTRATE POC GLUCOSE Routine 07/08/2008 6:[address] MAGISTRATE BLOOD CULTURE Routine 07/08/2008 6:[address] MAGISTRATE BLOOD CULTURE Routine 07/08/2008 6:[address] MAGISTRATE XR CHEST PA OR AP 1 VW Routine 8 11:[address] MAGISTRATE XR ABDOMEN FOR FEEDING TUBE 1 VW Routine 07/08/2008 11:[address] MAGISTRATE POC BLOOD GAS, LYTES AND H+H Stat 07/08/2008 4:[address] MAGISTRATE XR CHEST PA OR AP 1 VW Routine 8 4:[address] MAGISTRATE CBC WITH DIFFERENTIAL Routine 07/08/2008 3:[address] MAGISTRATE PTT Routine 07/08/2008 3:[address] MAGISTRATE PROTIME-INR Routine 07/08/2008 3:[address] MAGISTRATE BASIC METABOLIC PANEL Routine 07/08/2008 3:[address] MAGISTRATE MRSA CULTURE Routine 07/08/2008 1:[address] MAGISTRATE XR CHEST PA OR AP 1 VW Routine 8 11:[address] MAGISTRATE POC BLOOD GAS, LYTES AND H+H Stat 07/07/2008 10:[address] MAGISTRATE PT AND APTT Routine 07/07/2008 10:[address] MAGISTRATE CBC WITH DIFFERENTIAL Routine 07/07/2008 10:[address] MAGISTRATE AFB CULTURE WITH STAIN Routine 8 9:[address] MAGISTRATE ANAEROBIC/AEROBIC CULTURE W GRAM STAIN Routine 07/07/2008 9:[address] MAGISTRATE FUNGUS CULTURE, OTHER Routine 07/07/2008 9:[address] MAGISTRATE ANAEROBIC CULTURE Routine 07/07/2008 9:[address] MAGISTRATE AFB CULTURE WITH STAIN Routine 8 9:[address] MAGISTRATE BODY FLUID CULTURE WITH GRAM STAIN Routine 07/07/2008 9:[address] MAGISTRATE FUNGUS CULTURE, OTHER Routine 07/07/2008 9:[address] MAGISTRATE ANAEROBIC CULTURE Routine 07/07/2008 9:[address] MAGISTRATE POC BLOOD GAS, LYTES AND H+H Stat 07/07/2008 9:[address] MAGISTRATE POC BLOOD GAS, LYTES AND H+H Stat 07/07/2008 8:[address] MAGISTRATE PATHOLOGY Routine 07/07/2008 8:[address] MAGISTRATE CBC WITH DIFFERENTIAL Routine 07/07/2008 6:[address] MAGISTRATE BASIC METABOLIC PANEL Routine 07/07/2008 6:[address] CHEST WO CONTRAST Routine 07/06/2008 7:[address] MAGISTRATE ABORH TYPING Routine 07/06/2008 6:[address] MAGISTRATE TYPE AND CROSSMATCH Routine 07/06/2008 6 :[address] MAGISTRATE BLOOD BANK ANTIBODY SCREEN Routine 07/06/2008 6:[address] MAGISTRATE CBC WITH DIFFERENTIAL Routine 07/06/2008 5:[address] MAGISTRATE BASIC METABOLIC PANEL Routine 07/06/2008 5:[address] MAGISTRATE CBC WITH DIFFERENTIAL Routine 07/05/2008 5:[address] MAGISTRATE BASIC METABOLIC PANEL Routine 07/05/2008 5:[address] MAGISTRATE XR CHEST PA AND LATERAL 2 VW Routine 07/04/2008 9:[address] MAGISTRATE BLOOD CULTURE Routine 07/04/2008 8:[address] MAGISTRATE CBC WITH DIFFERENTIAL Routine 07/04/2008 8:[address] MAGISTRATE BLOOD CULTURE Routine 07/04/2008 8:[address] MAGISTRATE DIGOXIN LEVEL Routine 07/04/2008 8:[address] MAGISTRATE BASIC METABOLIC PANEL Routine 07/04/2008 8:[address] MAGISTRATE documented in this encounter Results * (ABNORMAL) POC ISTAT EG 7+ (07/14/2008 1:[address] MAGISTRATE) FIO2 21 [facility] HEMATOCRIT ABG 33(L) 38 - 51 % [facility] PO2 52(L) 80 - 105 mmHg [facility] CALCIUM IONIZED 1.16 1.12 - 1.32 mmol/l [facility] PCO2 POC 41 35 - 45 mmHg [facility] BASE EXCESS 11(H) -2 - 3 mmol/l [facility] SODIUM 136(L) 138 - 146 mEq/L [facility] PH 7.52(H) 7.35 - 7.45 Unit [facility] PO2 TEMP CORRECT 52(L) 80 - 105 mmHg [facility] O2 SATURATION 90(L) 95 - 98 % [facility] SPECIMEN TYPE Arterial [facility] Comment: Test Performed By [id number] Pulse OX: 91 Hemoglobin calculated from Hematocrit result PCO2 TEMP CORRECT 41 35 - 45 mmHg [facility] POTASSIUM 3.9 3.5 - 4.9 mEq/L [facility] HEMOGLOBIN POC 11.2 +/-3 g/dL 12.0 - 16.0 g/dL [facility] PH TEMP CORRECT 7.52(H) 7.35 - 7.45 Unit [facility] TCO2 (CALC) POC 35(H) 23 - 27 mmol/l [facility] HCO3 (CALC) POC 34.0(H) 22.0 - 26.0 mmol/l [facility] Arterial blood specimen (specimen) 07/14/2008 1:[address] MAGISTRATE 07/14/2008 2:[address] MAGISTRATE us Karen Brooke MD POINT OF CARE TESTING COM Final Result INTERFACE SYSTEM Refer to clinic/hospital department [facility] CLIA# [id number] [address] [place] [address] * (ABNORMAL) POC ISTAT EG 7+ (07/14/2008 11:[address] MAGISTRATE) PCO2 TEMP CORRECT 42 35 - 45 mmHg [facility] HEMOGLOBIN POC 11.6 +/-3 g/dL 12.0 - 16.0 g/dL [facility] POTASSIUM 4.1 3.5 - 4.9 mEq/L [facility] PH TEMP CORRECT 7.53(H) 7.35 - 7.45 Unit [facility] HCO3 (CALC) POC 34.9(H) 22.0 - 26.0 mmol/l [facility] TCO2 (CALC) POC 36(H) 23 - 27 mmol/l [facility] FIO2 2 [facility] PO2 88 80 - 105 mmHg [facility] CALCIUM IONIZED 1.19 1.12 - 1.32 mmol/l [facility] HEMATOCRIT ABG 34(L) 38 - 51 % [facility] PCO2 POC 42 35 - 45 mmHg [facility] SODIUM 135(L) 138 - 146 mEq/L [facility] BASE EXCESS 12(H) -2 - 3 mmol/l [facility] PH 7.53(H) 7.35 - 7.45 Unit [facility] O2 SATURATION 98 95 - 98 % [facility] PO2 TEMP CORRECT 88 80 - 105 mmHg [facility] SPECIMEN TYPE Arterial [facility] Comment: Test Performed By [id number] Pulse OX: 98 Hemoglobin calculated from Hematocrit result Arterial blood specimen (specimen) 07/14/2008 11:[address] MAGISTRATE 07/14/2008 11:[address] MAGISTRATE Karen Brooke MD POINT OF CARE TESTING COM Final Result INTERFACE SYSTEM Refer to clinic/hospital department [facility] CLIA# [id number] [address] [place] [address] * XR CHEST PA AND LATERAL (07/14/2008 8:[address] MAGISTRATE) Anatomical Region Laterality Modality Chest Other 07/14/2008 8:[address] MAGISTRATE Narrative 07/14/2008 2:[address] MAGISTRATE Comparison: 07/11/2008. Again noted are left chest wall skin holley. Mild retraction of the left apical chest tube. Removal of the chest tube projecting over the left lung base. No pneumothorax. Heart size is normal. Stable nonspecific increased attenuation in the left perihilar and basilar regions. Persistent increased attenuation with a smooth convex inner border at the left mid and inferolateral pleural margin. Persistent small right effusion. Calcified granuloma at the right base. Impression: 1. Persistent left perihilar and basilar atelectasis and/or infiltrates. 2. Stable left pleural fluid collection. A loculated effusion cannot be excluded. 3. Stable small right pleural effusion. - Dictated By: Sonny Borges M.D. Electronically Signed By: Sonny Borges M.D. Date Signed: 07/14/08 Procedure Note Ricardo Borges - 07/14/2008 Comparison: 07/11/2008. Again noted are left chest wall skin holley. Mild retraction of the leftapical chest tube. Removal of the chest tube projecting over the left lung base. No pneumothorax. Heartsize is normal. Stable nonspecific increased attenuation in the left perihilar and basilarregions. Persistent increased attenuation with a smooth convex inner border at the left mid andinferolateral pleural margin. Persistent small right effusion. Calcified granuloma at the right base. Impression: 1. Persistent left perihilar and basilar atelectasis and/or infiltrates. 2. Stable left pleural fluid collection. A loculated effusion cannot beexcluded. 3. Stable small right pleural effusion. - Dictated By: Sonny Borges M.D. Electronically Signed By: Sonny Borges M.D. Date Signed: 07/14/08 us Karen Brooke MD DIAGNOSTIC IMAGING ORD ERABLES Final Result * (ABNORMAL) POC GLUCOSE (07/14/2008 7:[address] MAGISTRATE) [facility] GLUCOSE POC 132(H) 60 - 100 mg/dL [facility] COMMENT POC Follow Protocol [facility] Venous blood specimen (specimen) 07/14/2008 7:[address] MAGISTRATE 07/15/2008 3:[address] MAGISTRATE us Karen Brooke MD POINT OF CARE TESTING Final Result INTERFACE SYSTEM Refer to clinic/hospital department [facility] CLIA# [id number] [address] [place] [address] * (ABNORMAL) BASIC METABOLIC PANEL (07/14/2008 6:[address] MAGISTRATE) Pathologist [facility] POTASSIUM 4.1 3.5 - 5.0 mEq/L [facility] OSMOLALITY, CALCULATED 287 275 - 295 mOsm/Kg [facility] CREATININE 0.4(L) 0.7 - 1.2 mg/dL [facility] CALCIUM 9.2 8.4 - 10.5 mg/dL [facility] GLUCOSE 113(H) 70 - 110 mg/dL [facility] CHLORIDE 99 95 - 110 mEq/L [facility] ANION GAP 12 9 - 20 mEq/L [facility] SODIUM 140 136 - 145 mEq/L [facility] BUN 7 7 - 17 mg/dL [facility] CO2 33(H) 22 - 32 mmol/l [facility] Blood specimen (specimen) 07/14/2008 6:[address] MAGISTRATE 07/14/2008 6:[address] MAGISTRATE us Karen Brooke MD CHEMISTRY ORDERABLES F inal Result Performing Organization Address City/State/[facility] Co de Phone Number INTERFACE SYSTEM Refer to clinic/hospital department [facility] CLIA# [id number] [address] [place] [address] * (ABNORMAL) CBC WITH DIFFERENTIAL (07/14/2008 6:[address] MAGISTRATE) HEMOGLOBIN 9.7(L) 12.0 - 16.0 g/dL [facility] BASOPHILS ABSOLUTE 0.1 0.0 - 0.2 K/ul [facility] BASOPHILS 0.4 0.0 - 1.0 % [facility] RDW 14.3 11.0 - 14.5 % [facility] WBC 11.9(H) 4.5 - 11.0 K/ul [facility] MONOCYTE ABSOLUTE 1.0(H) 0.1 - 0.6 K/ul [facility] EOSINOPHILS 1.4 0.0 - 7.0 % [facility] NEUTROPHILS 78.2(H) 42.2 - 75.2 % [facility] MCH 27.6 27.0 - 34.0 pg [facility] LYMPHOCYTES 11.5(L) 24.0 - 44.0 % [facility] NEUTROPHIL ABSOLUTE 9.3(H) 2.0 - 8.0 K/ul [facility] HEMATOCRIT 30.8(L) 36.0 - 46.0 % [facility] PLATELETS 337 140 - 440 K/ul [facility] RBC 3.51(L) 4.20 - 5.40 Mil/ul [facility] MCHC 31.5 30.0 - 35.0 g/dL [facility] EOSINOPHIL ABSOLUTE 0.2 0.0 - 0.7 K/ul [facility] MONOCYTES 8.5 2.0 - 10.0 % [facility] MCV 87.7 84.0 - 103.0 Fl [facility] LYMPHOCYTE ABSOLUTE 1.4 1.2 - 4.0 K/ul [facility] MPV 9.3 8.9 - 12.8 Fl [facility] Blood specimen (specimen) 07/14/2008 6:[address] MAGISTRATE 07/14/2008 6:[address] MAGISTRATE us Karen Brooke MD HEMATOLOGY ORDERABLES Final Result Performing Organization Address [facility] de Phone Number INTERFACE SYSTEM Refer to clinic/hospital department [facility] CLIA# [id number] [address] [place] [address] * (ABNORMAL) POC GLUCOSE (07/13/2008 9:[address] MAGISTRATE) [facility] Signature GLUCOSE POC 128(H) 60 - 100 mg/dL [facility] Venous blood specimen (specimen) 07/13/2008 9:[address] MAGISTRATE 07/14/2008 4:[address] MAGISTRATE Karen Brooke MD POINT OF CARE TESTING Final Result Performing Organization Address [facility] de Phone Number INTERFACE SYSTEM Refer to clinic/hospital department [facility] CLIA# [id number] [address] [place] [address] * (ABNORMAL) POC GLUCOSE (07/13/2008 5:[address] MAGISTRATE) GLUCOSE POC 121(H) 60 - 100 mg/dL [facility] Venous blood specimen (specimen) 07/13/2008 5:[address] MAGISTRATE 07/14/2008 4:[address] MAGISTRATE us Karen Brooke MD POINT OF CARE TESTING Final Result Performing Organization Address City/[facility] de Phone Number INTERFACE SYSTEM Refer to clinic/hospital department [facility] CLIA# [id number] [address] [place] [address] * (ABNORMAL) POC GLUCOSE (07/13/2008 11:[address] MAGISTRATE) GLUCOSE POC 127(H) 60 - 100 mg/dL [facility] Venous blood specimen (specimen) 07/13/2008 11:[address] MAGISTRATE 07/14/2008 4:[address] MAGISTRATE us Karen Brooke MD POINT OF CARE TESTING Final Result Performing Organization Address [facility] de Phone Number INTERFACE SYSTEM Refer to clinic/hospital department [facility] CLIA# [id number] [address] [place] [address] * (ABNORMAL) POC GLUCOSE (07/13/2008 7:[address] MAGISTRATE) GLUCOSE POC 134(H) 60 - 100 mg/dL [facility] COMMENT POC Follow Protocol [facility] Venous blood specimen (specimen) 07/13/2008 7:[address] MAGISTRATE 07/14/2008 4:[address] MAGISTRATE us Karen Brooke MD POINT OF CARE TESTING Final Result Performing Organization Address City/[facility] Co de Phone Number INTERFACE SYSTEM Refer to clinic/hospital department [facility] CLIA# [id number] [address] [place] [address] * (ABNORMAL) COMPREHENSIVE METABOLIC PANEL (07/13/2008 5:[address] MAGISTRATE) CREATININE 0.4(L) 0.7 - 1.2 mg/dL [facility] CALCIUM 9.6 8.4 - 10.5 mg/dL [facility] OSMOLALITY, CALCULATED 286 275 - 295 mOsm/Kg [facility] ALT 69(H) 4 - 36 IU/L [facility] GLUCOSE 132(H) 70 - 110 mg/dL [facility] CHLORIDE 98 95 - 110 mEq/L [facility] ALBUMIN/GLOBULIN RATIO 1.1 1.0 - 2.3 [facility] ALKALINE PHOSPHATASE 75 25 - 100 U/L [facility] SODIUM 139 136 - 145 mEq/L [facility] BILIRUBIN TOTAL 0.2(L) 0.3 - 1.2 mg/dL [facility] TOTAL PROTEIN 6.9 6.3 - 8.2 g/dL [facility] BUN 7 7 - 17 mg/dL [facility] AST 39(H) 8 - 33 U/L [facility] CO2 35(H) 22 - 32 mmol/l [facility] ANION GAP 10 9 - 20 mEq/L [facility] ALBUMIN 3.6 3.5 - 5.0 g/dL [facility] POTASSIUM 4.0 3.5 - 5.0 mEq/L [facility] GLOBULIN (CALC) 3.3 2.4 - 3.9 g/dL [facility] Blood specimen (specimen) 07/13/2008 5:[address] MAGISTRATE 07/13/2008 6:[address] MAGISTRATE us Karen Brooke MD CHEMISTRY ORDERABLES F inal Result INTERFACE SYSTEM Refer to clinic/hospital department [facility] CLIA# [id number] [address] [place] [address] * (ABNORMAL) CBC WITH DIFFERENTIAL (07/13/2008 5:[address] MAGISTRATE) MCV 87.9 84.0 - 103.0 Fl [facility] MPV 9.7 8.9 - 12.8 Fl [facility] BASOPHILS ABSOLUTE 0.1 0.0 - 0.2 K/ul [facility] BASOPHILS 0.4 0.0 - 1.0 % [facility] HEMOGLOBIN 10.7(L) 12.0 - 16.0 g/dL [facility] RDW 14.2 11.0 - 14.5 % [facility] MONOCYTE ABSOLUTE 1.2(H) 0.1 - 0.6 K/ul [facility] MONOCYTES 10.4(H) 2.0 - 10.0 % [facility] WBC 11.8(H) 4.5 - 11.0 K/ul [facility] MCH 27.6 27.0 - 34.0 pg [facility] NEUTROPHIL ABSOLUTE 8.9(H) 2.0 - 8.0 K/ul [facility] NEUTROPHILS 75.8(H) 42.2 - 75.2 % [facility] HEMATOCRIT 34.1(L) 36.0 - 46.0 % [facility] EOSINOPHILS 1.9 0.0 - 7.0 % [facility] PLATELETS 424 140 - 440 K/ul [facility] EOSINOPHIL ABSOLUTE 0.2 0.0 - 0.7 K/ul [facility] RBC 3.88(L) 4.20 - 5.40 Mil/ul [facility] LYMPHOCYTES 11.5(L) 24.0 - 44.0 % [facility] MCHC 31.4 30.0 - 35.0 g/dL [facility] LYMPHOCYTE ABSOLUTE 1.4 1.2 - 4.0 K/ul [facility] Blood specimen (specimen) 07/13/2008 5:[address] MAGISTRATE 07/13/2008 6:[address] MAGISTRATE Karen Brooke MD HEMATOLOGY ORDERABLES Final Result Performing Organization Address [facility] Phone Number INTERFACE SYSTEM Refer to clinic/hospital department [facility] CLIA# [id number] [address] [place] [address] * (ABNORMAL) POC GLUCOSE (07/12/2008 8:[address] MAGISTRATE) GLUCOSE POC 149(H) 60 - 100 mg/dL [facility] Venous blood specimen (specimen) 07/12/2008 8:[address] MAGISTRATE 07/13/2008 2:[address] MAGISTRATE Karen Brooke MD POINT OF CARE TESTING Final Result Performing Organization Address [facility] Phone Number INTERFACE SYSTEM Refer to clinic/hospital department [facility] CLIA# [id number] [address] [place] [address] * (ABNORMAL) POC GLUCOSE (07/12/2008 4:[address] MAGISTRATE) GLUCOSE POC 142(H) 60 - 100 mg/dL [facility] COMMENT POC Follow Protocol [facility] Venous blood specimen (specimen) 07/12/2008 4:[address] MAGISTRATE 07/13/2008 2:[address] MAGISTRATE Karen Brooke MD POINT OF CARE TESTING Final Result Performing Organization Address [facility] Phone Number INTERFACE SYSTEM Refer to clinic/hospital department [facility] CLIA# [id number] [address] [place] [address] * XR CHEST PA AND LATERAL (07/11/2008 8:[address] MAGISTRATE) Anatomical Region Laterality Modality Chest Other 07/11/2008 8:[address] MAGISTRATE Narrative 07/12/2008 7:[address] MAGISTRATE Exam: Chest - PA and Lateral Date/Time of Exam: Jul 11, 2008 8:30:18 AM History: Please see order comments. Findings: Comparison dated 07/10/2008 at 0729 hours. Two thoracostomy tubes remain in place on the left. I do not see a pneumothorax. The left PICC is stable. There is persistent pleural thickening and/or pleural fluid along the lower left costal margin. There is a persistent small right-sided pleural fluid collection. Impression: No interval change. - Dictated By: Lucie Puentes MD Electronically Signed By: Lucie Puentes MD Date Signed: 07/12/08 Procedure Note Lucie Puentes - 07/12/2008 Exam: Chest - PA and Lateral Date/Time of Exam: Jul 11, 2008 8:30:18 AM History: Please see order comments. Findings: Comparison dated 07/10/2008 at 0729 hours. Two thoracostomytubes remain in place on the left. I do not see a pneumothorax. The left PICC is stable. There is persistentpleural thickening and/or pleural fluid along the lower left costal margin. There is a persistentsmall right-sided pleural fluid collection. Impression: No interval change. - Dictated By: Lucie Puentes MD Electronically Signed By: Lucie Puentes MD Date Signed: 07/12/08 Karen Brooke MD DIAGNOSTIC IMAGING ORD ERABLES Final Result * (ABNORMAL) COMPREHENSIVE METABOLIC PANEL (07/11/2008 5:[address] MAGISTRATE) CO2 32 22 - 32 mmol/l [facility] OSMOLALITY, CALCULATED 280 275 - 295 mOsm/Kg [facility] ALT 68(H) 4 - 36 IU/L [facility] SODIUM 136 136 - 145 mEq/L [facility] CHLORIDE 97 95 - 110 mEq/L [facility] ALBUMIN/GLOBULIN RATIO 1.1 1.0 - 2.3 [facility] ALKALINE PHOSPHATASE 91 25 - 100 U/L [facility] CREATININE 0.4(L) 0.7 - 1.2 mg/dL [facility] POTASSIUM 3.6 3.5 - 5.0 mEq/L [facility] BILIRUBIN TOTAL 0.3 0.3 - 1.2 mg/dL [facility] BUN 10 7 - 17 mg/dL [facility] [facility] AST 53(H) 8 - 33 U/L [facility] TOTAL PROTEIN 6.6 6.3 - 8.2 g/dL [facility] ANION GAP 11 9 - 20 mEq/L [facility] GLUCOSE 117(H) 70 - 110 mg/dL [facility] ALBUMIN 3.5 3.5 - 5.0 g/dL [facility] CALCIUM 9.0 8.4 - 10.5 mg/dL [facility] GLOBULIN (CALC) 3.1 2.4 - 3.9 g/dL [facility] Blood specimen (specimen) 07/11/2008 5:[address] MAGISTRATE 07/11/2008 5:[address] MAGISTRATE us Karen Brooke MD CHEMISTRY ORDERABLES F inal Result INTERFACE SYSTEM Refer to clinic/hospital department [facility] CLIA# [id number] [address] [place] [address] * (ABNORMAL) CBC WITH DIFFERENTIAL (07/11/2008 5:[address] MAGISTRATE) LYMPHOCYTES 8.9(L) 24.0 - 44.0 % [facility] MCHC 32.2 30.0 - 35.0 g/dL [facility] LYMPHOCYTE ABSOLUTE 1.3 1.2 - 4.0 K/ul [facility] MCV 87.0 84.0 - 103.0 Fl [facility] MPV 9.6 8.9 - 12.8 Fl [facility] BASOPHILS ABSOLUTE 0.1 0.0 - 0.2 K/ul [facility] BASOPHILS 0.3 0.0 - 1.0 % [facility] HEMOGLOBIN 10.1(L) 12.0 - 16.0 g/dL [facility] RDW 14.1 11.0 - 14.5 % [facility] MONOCYTE ABSOLUTE 1.5(H) 0.1 - 0.6 K/ul [facility] MONOCYTES 9.8 2.0 - 10.0 % [facility] WBC 14.8(H) 4.5 - 11.0 K/ul [facility] MCH 28.0 27.0 - 34.0 pg [facility] NEUTROPHIL ABSOLUTE 11.7(H) 2.0 - 8.0 K/ul [facility] NEUTROPHILS 79.2(H) 42.2 - 75.2 % [facility] HEMATOCRIT 31.4(L) 36.0 - 46.0 % [facility] EOSINOPHILS 1.8 0.0 - 7.0 % [facility] PLATELETS 366 140 - 440 K/ul [facility] EOSINOPHIL ABSOLUTE 0.3 0.0 - 0.7 K/ul [facility] RBC 3.61(L) 4.20 - 5.40 Mil/ul [facility] Blood specimen (specimen) 07/11/2008 5:[address] MAGISTRATE 07/11/2008 5:[address] MAGISTRATE us Karen Brooke MD HEMATOLOGY ORDERABLES Final Result Performing Organization Address City/State/[facility] Co de Phone Number INTERFACE SYSTEM Refer to clinic/hospital department [facility]# [id number] [address] [place] [address] * XR CHEST PA OR AP (07/10/2008 7:[address] MAGISTRATE) Anatomical Region Laterality Modality Chest Other 07/10/2008 7:[address] MAGISTRATE Narrative 07/10/2008 4:[address] MAGISTRATE Exam: Chest - Portable Date/Time of Exam: Jul 10, 2008 7:46:42 AM History: Post-operative. Findings: The AP upright study is compared to the exam of 07/09/2008. Postsurgical changes of the left chest are again noted. Both left chest tubes are in stable position. The NG tube has been removed in the interval. The left arm PICC line is in stable position. Opacification of both lung bases is again noted. There is no evidence for pneumothorax. Heart size is generous. Impression: Interval removal of the NG tube. No other significant interval change. - Dictated By: Humaira Aguilar M.D. Electronically Signed By: Humaira Aguilar M.D. Date Signed: 07/10/08 SDM Procedure Note Humaira Aguilar MD - 07/10/2008 Exam: Chest - Portable Date/Time of Exam: Jul 10, 2008 7:46:42 AM History: Post-operative. Findings: The AP upright study is compared to the exam of 07/09/2008. Postsurgical changes of the left chest are again noted. Both left chesttubes are in stable position. The NG tube has been removed in the interval. The left arm PICC line is instable position. Opacification of both lung bases is again noted. There is no evidence for pneumothorax.Heart size is generous. Impression: Interval removal of the NG tube. No other significant intervalchange. - Dictated By: Humaira Aguilar M.D. Electronically Signed By: Humaira Aguilar M.D. Date Signed: 07/10/08 SDM Karen Brooke MD DIAGNOSTIC IMAGING ORD ERABLES Final Result * (ABNORMAL) COMPREHENSIVE METABOLIC PANEL (07/10/2008 5:[address] MAGISTRATE) TOTAL PROTEIN 6.2(L) 6.3 - 8.2 g/dL [facility] SODIUM 135(L) 136 - 145 mEq/L [facility] BILIRUBIN TOTAL 0.3 0.3 - 1.2 mg/dL [facility] BUN 8 7 - 17 mg/dL [facility] CO2 30 22 - 32 mmol/l [facility] ANION GAP 10 9 - 20 mEq/L [facility] AST 40(H) 8 - 33 U/L [facility] POTASSIUM 3.9 3.5 - 5.0 mEq/L [facility] GLOBULIN (CALC) 3.1 2.4 - 3.9 g/dL [facility] ALBUMIN 3.1(L) 3.5 - 5.0 g/dL [facility] CREATININE 0.4(L) 0.7 - 1.2 mg/dL [facility] ALT 53(H) 4 - 36 IU/L [facility] CALCIUM 8.8 8.4 - 10.5 mg/dL [facility] OSMOLALITY, CALCULATED 277 275 - 295 mOsm/Kg [facility] GLUCOSE 111(H) 70 - 110 mg/dL [facility] ALKALINE PHOSPHATASE 79 25 - 100 U/L [facility] CHLORIDE 99 95 - 110 mEq/L [facility] ALBUMIN/GLOBULIN RATIO 1.0 1.0 - 2.3 [facility] Blood specimen (specimen) 07/10/2008 5:[address] MAGISTRATE 07/10/2008 5:[address] MAGISTRATE Enoc Carlson MD CHEMISTRY ORDERABLES Final Result INTERFACE SYSTEM Refer to clinic/hospital department [facility] CLIA# [id number] [address] [place] [address] 116[address] * (ABNORMAL) CBC WITH DIFFERENTIAL (07/10/2008 5:[address] MAGISTRATE) LYMPHOCYTE ABSOLUTE 1.3 1.2 - 4.0 K/ul [facility] LYMPHOCYTES 7.5(L) 24.0 - 44.0 % [facility] MCV 87.7 84.0 - 103.0 Fl [facility] BASOPHILS 0.2 0.0 - 1.0 % [facility] MPV 9.5 8.9 - 12.8 Fl [facility] BASOPHILS ABSOLUTE 0.0 0.0 - 0.2 K/ul [facility] HEMOGLOBIN 9.8(L) 12.0 - 16.0 g/dL [facility] MONOCYTES 8.9 2.0 - 10.0 % [facility] RDW 14.6(H) 11.0 - 14.5 % [facility] MONOCYTE ABSOLUTE 1.6(H) 0.1 - 0.6 K/ul [facility] WBC 17.5(H) 4.5 - 11.0 K/ul [facility] NEUTROPHILS 82.7(H) 42.2 - 75.2 % [facility] MCH 27.9 27.0 - 34.0 pg [facility] NEUTROPHIL ABSOLUTE 14.5(H) 2.0 - 8.0 K/ul [facility] HEMATOCRIT 30.8(L) 36.0 - 46.0 % [facility] PLATELETS 361 140 - 440 K/ul [facility] EOSINOPHIL ABSOLUTE 0.1 0.0 - 0.7 K/ul [facility] EOSINOPHILS 0.7 0.0 - 7.0 % [facility] RBC 3.51(L) 4.20 - 5.40 Mil/ul [facility] MCHC 31.8 30.0 - 35.0 g/dL [facility] Blood specimen (specimen) 07/10/2008 5:[address] MAGISTRATE 07/10/2008 5:[address] MAGISTRATE us Enoc Carlson MD HEMATOLOGY ORDERABLES Rebecca mireles Result Performing Organization Address City/[facility] de Phone Number INTERFACE SYSTEM Refer to clinic/hospital department [facility] CLIA# [id number] [address] [place] [address]66 * (ABNORMAL) POC GLUCOSE (07/09/2008 5:[address] MAGISTRATE) GLUCOSE POC 160(H) 60 - 100 mg/dL [facility] Venous blood specimen (specimen) 07/09/2008 5:[address] MAGISTRATE 07/09/2008 6:[address] MAGISTRATE us Karen Jones MD POINT OF CARE TESTING Final Resu lt Performing Organization Address City/[facility] Co de Phone Number INTERFACE SYSTEM Refer to clinic/hospital department [facility] CLIA# [id number] [address] [place] [address] * XR CHEST PA OR AP (07/09/2008 4:[address] MAGISTRATE) Anatomical Region Laterality Modality Chest Other 07/09/2008 4:[address] MAGISTRATE Narrative 07/10/2008 1:[address] MAGISTRATE PORTABLE CHEST HISTORY: Pneumonia. COMPARISON: 07-08-08 A left PICC line remains in the SVC. Stable position of the left chest tubes. No pneumothorax. Reduction in the mild chest wall subcutaneous air. Chest wall skin holley remain. No significant change in the perihilar and bibasilar infiltrates and/or atelectasis and bilateral effusions, greater on the left. IMPRESSION: No significant change. [facility] 1106 Dictated By: Sonny Borges M.D. Electronically Signed By: Sonny Borges M.D. Date Signed: 07/10/08 FAYE Procedure Note Ricardo Borges - 07/10/2008 PORTABLE CHEST HISTORY: Pneumonia. COMPARISON: 07-08-08 A left PICC line remains in the SVC. Stable position of the left chesttubes. No pneumothorax. Reduction in the mild chest wall subcutaneous air. Chest wall skin holley remain.No significant change in the perihilar and bibasilar infiltrates and/or atelectasis and bilateraleffusions, greater on the left. IMPRESSION: No significant change. [facility] 1106 Dictated By: Sonny Borges M.D. Electronically Signed By: Sonny Borges M.D. Date Signed: 07/10/08 FAYE us Karen Brooke MD DIAGNOSTIC IMAGING ORD ERABLES Final Result * BILIRUBIN DIRECT (07/09/2008 3:[address] MAGISTRATE) BILIRUBIN DIRECT 0.3 0.0 - 0.4 mg/dL [facility] Blood specimen (specimen) 07/09/2008 3:[address] MAGISTRATE 07/09/2008 3:[address] MAGISTRATE Narrative INTERFACE SYSTEM - 07/09/2008 4:[address] MAGISTRATE D Geraldo ordered to complete cancelled Hepatic Function Panel Karen Brooke MD CHEMISTRY ORDERABLES F inal Result INTERFACE SYSTEM Refer to clinic/hospital department [facility] CLIA# [id number] [address] [place] [address] * (ABNORMAL) COMPREHENSIVE METABOLIC PANEL (07/09/2008 3:[address] MAGISTRATE) ALKALINE PHOSPHATASE 63 25 - 100 U/L [facility] CHLORIDE 102 95 - 110 mEq/L [facility] ALBUMIN/GLOBULIN RATIO 1.2 1.0 - 2.3 [facility] TOTAL PROTEIN 5.4(L) 6.3 - 8.2 g/dL [facility] SODIUM 134(L) 136 - 145 mEq/L [facility] BILIRUBIN TOTAL 0.4 0.3 - 1.2 mg/dL [facility] BUN 8 7 - 17 mg/dL [facility] CO2 26 22 - 32 mmol/l [facility] ANION GAP 10 9 - 20 mEq/L [facility] AST 47(H) 8 - 33 U/L [facility] POTASSIUM 4.3 3.5 - 5.0 mEq/L [facility] GLOBULIN (CALC) 2.5 2.4 - 3.9 g/dL [facility] ALBUMIN 2.9(L) 3.5 - 5.0 g/dL [facility] CREATININE 0.4(L) 0.7 - 1.2 mg/dL [facility] ALT 49(H) 4 - 36 IU/L [facility] CALCIUM 8.4 8.4 - 10.5 mg/dL [facility] OSMOLALITY, CALCULATED 279 275 - 295 mOsm/Kg [facility] GLUCOSE 158(H) 70 - 110 mg/dL [facility] Blood specimen (specimen) 07/09/2008 3:[address] MAGISTRATE 07/09/2008 3:[address] MAGISTRATE Karen Brooke MD CHEMISTRY ORDERABLES F inal Result Performing Organization Address [facility] Phone Number INTERFACE SYSTEM Refer to clinic/hospital department [facility] CLIA# [id number] [address] [place] [address] * (ABNORMAL) PREALBUMIN (07/09/2008 3:[address] MAGISTRATE) PREALBUMIN 5.5(L) 14.0 - 32.0 mg/dL [facility] Blood specimen (specimen) 07/09/2008 3:[address] MAGISTRATE 07/09/2008 3:[address] MAGISTRATE Karen Brooke MD CHEMISTRY ORDERABLES F inal Result Performing Organization Address [facility] Phone Number INTERFACE SYSTEM Refer to clinic/hospital department [facility] CLIA# [id number] [address] [place] [address]35[address] * (ABNORMAL) CBC WITH DIFFERENTIAL (07/09/2008 3:[address] MAGISTRATE) MCV 86.9 84.0 - 103.0 Fl [facility] BASOPHILS 0.2 0.0 - 1.0 % [facility] MPV 9.3 8.9 - 12.8 Fl [facility] BASOPHILS ABSOLUTE 0.0 0.0 - 0.2 K/ul [facility] HEMOGLOBIN 10.4(L) 12.0 - 16.0 g/dL [facility] MONOCYTES 9.0 2.0 - 10.0 % [facility] RDW 14.8(H) 11.0 - 14.5 % [facility] MONOCYTE ABSOLUTE 1.8(H) 0.1 - 0.6 K/ul [facility] WBC 20.4(H) 4.5 - 11.0 K/ul [facility] NEUTROPHILS 85.3(H) 42.2 - 75.2 % [facility] MCH 28.4 27.0 - 34.0 pg [facility] NEUTROPHIL ABSOLUTE 17.5(H) 2.0 - 8.0 K/ul [facility] HEMATOCRIT 31.8(L) 36.0 - 46.0 % [facility] PLATELETS 344 140 - 440 K/ul [facility] Comment: PLATELET CLUMPING NOTED ON REVIEW OF SMEAR. WILL CAUSE A FALSE DECREASE ON PLATELET COUNT. EOSINOPHIL ABSOLUTE 0.0 0.0 - 0.7 K/ul [facility] EOSINOPHILS 0.1 0.0 - 7.0 % [facility] PERIPHERAL BLOOD SMEAR REVIEW Smear Reviewed [facility] RBC 3.66(L) 4.20 - 5.40 Mil/ul [facility] MCHC 32.7 30.0 - 35.0 g/dL [facility] LYMPHOCYTE ABSOLUTE 1.1(L) 1.2 - 4.0 K/ul [facility] LYMPHOCYTES 5.4(L) 24.0 - 44.0 % [facility] Blood specimen (specimen) 07/09/2008 3:[address] MAGISTRATE 07/09/2008 3:[address] MAGISTRATE Karen Brooke MD HEMATOLOGY ORDERABLES Final Result INTERFACE SYSTEM Refer to clinic/hospital department [facility] CLIA# [id number] [address] [place] [address] * (ABNORMAL) POC GLUCOSE (07/08/2008 6:[address] MAGISTRATE) GLUCOSE POC 145(H) 60 - 100 mg/dL [facility] Venous blood specimen (specimen) 07/08/2008 6:[address] MAGISTRATE 07/09/2008 6:[address] MAGISTRATE us Karen Jones MD POINT OF CARE TESTING Final Resu lt Performing Organization Address City/[facility] Co de Phone Number INTERFACE SYSTEM Refer to clinic/hospital department [facility] CLIA# [id number] [address] [place] [address] * BLOOD CULTURE (07/08/2008 6:[address] MAGISTRATE) FINAL REPORT No growth [facility] Blood specimen (specimen) 07/08/2008 6:[address] MAGISTRATE 07/08/2008 6:[address] MAGISTRATE us Enoc Carlson MD MICROBIOLOGY - GENERAL ORD ERABLES Final Result Performing Organization Address [facility] Phone Number INTERFACE SYSTEM Refer to clinic/hospital department * BLOOD CULTURE (07/08/2008 6:[address] MAGISTRATE) FINAL REPORT No growth [facility] Blood specimen (specimen) 07/08/2008 6:[address] MAGISTRATE 07/08/2008 6:[address] MAGISTRATE us Enoc Carlson MD MICROBIOLOGY - GENERAL ORD ERABLES Final Result Performing Organization Address [facility] Phone Number INTERFACE SYSTEM Refer to clinic/hospital department * XR CHEST PA OR AP (07/08/2008 11:[address] MAGISTRATE) Anatomical Region Laterality Modality Chest Other 07/08/2008 11:[address] MAGISTRATE Narrative 07/08/2008 2:[address] MAGISTRATE Exam: Chest - Portable Date/Time of Exam: Jul 08, 2008 11:22:41 AM History: Please see order comments. Comparisons: 07/08/2008 at 0345. Findings: Cardiomegaly is noted. Aorta is tortuous. An NG tube and 2 left-sided chest tubes are again identified stable in position. Bibasilar atelectasis and/or infiltrates are noted with moderate bilateral pleural effusions. No evidence for pneumothorax. Osseous structures appear within normal limits. There is interval placement of a left-sided PICC line with tip overlying the SVC. Impressions: 1. Interval left-sided PICC line placement. 2. Otherwise, no significant interval change. - Dictated By: Enoc Soto M.D., Ph.D. Electronically Signed By: Enoc Soto M.D., Ph.D. Date Signed: 07/08/08 GRB Procedure Note Enoc Soto - 07/08/2008 Exam: Chest - Portable Date/Time of Exam: Jul 08, 2008 11:22:41 AM History: Please see order comments. Comparisons: 07/08/2008 at 0345. Findings: Cardiomegaly is noted. Aorta is tortuous. An NG tube and 2left-sided chest tubes are again identified stable in position. Bibasilar atelectasis and/or infiltratesare noted with moderate bilateral pleural effusions. No evidence for pneumothorax. Osseous structuresappear within normal limits. There is interval placement of a left-sided PICC line with tip overlying theSVC. Impressions: 1. Interval left-sided PICC line placement. 2. Otherwise, no significant interval change. - Dictated By: Enoc Soto M.D., Ph.D. Electronically Signed By: Enoc Soto M.D., Ph.D. Date Signed: 07/08/08 GRB Jean Claude Vann MD DIAGNOSTIC IMAGING ORDERABLES Final Result * XR ABDOMEN FOR FEEDING TUBE (07/08/2008 11:[address] MAGISTRATE) Anatomical Region Laterality Modality Abdomen Other 07/08/2008 11:[address] MAGISTRATE Narrative 07/08/2008 5:[address] MAGISTRATE Exam: Tube Placement (Feeding/NG) Date/Time of Exam: Jul 08, 2008 11:22:41 AM History: Check tube placement. Comparisons: 07/08/2008 at 0345. Findings: An NG tube is identified with tip overlying the stomach. Bowel gas pattern is nonspecific. There are 2 left-sided chest tubes, stable. Bibasilar atelectasis and/or infiltrates are noted with bilateral pleural effusions. - Dictated By: Enoc Soto M.D., Ph.D. Electronically Signed By: Enoc Soto, M.D., Ph.D. Date Signed: 07/08/08 SDM Procedure Note BrittanyEnoc - 07/08/2008 Exam: Tube Placement (Feeding/NG) Date/Time of Exam: Jul 08, 2008 11:22:41 AM History: Check tube placement. Comparisons: 07/08/2008 at 0345. Findings: An NG tube is identified with tip overlying the stomach. Bowelgas pattern is nonspecific. There are 2 left-sided chest tubes, stable. Bibasilar atelectasis and/orinfiltrates are noted with bilateral pleural effusions. - Dictated By: Enoc Soto M.D., Ph.D. Electronically Signed By: Enoc Soto M.D., Ph.D. Date Signed: 07/08/08 SDM us Jean Claude aVnn MD DIAGNOSTIC IMAGING ORDERABLES Final Result * (ABNORMAL) POC ISTAT EG 7+ (07/08/2008 4:[address] MAGISTRATE) PH 7.47(H) 7.35 - 7.45 Unit [facility] O2 SATURATION 91(L) 95 - 98 % [facility] PO2 TEMP CORRECT 57(L) 80 - 105 mmHg [facility] SPECIMEN TYPE Arterial [facility] Comment: Test Performed By [id number] Pulse OX: 92 Hemoglobin calculated from Hematocrit result PCO2 TEMP CORRECT 38 35 - 45 mmHg [facility] HEMOGLOBIN POC 12.2 +/-3 g/dL 12.0 - 16.0 g/dL [facility] POTASSIUM 4.3 3.5 - 4.9 mEq/L [facility] PH TEMP CORRECT 7.47(H) 7.35 - 7.45 Unit [facility] HCO3 (CALC) POC 27.5(H) 22.0 - 26.0 mmol/l [facility] TCO2 (CALC) POC 29(H) 23 - 27 mmol/l [facility] FIO2 6 [facility] PO2 57(L) 80 - 105 mmHg [facility] CALCIUM IONIZED 1.08(L) 1.12 - 1.32 mmol/l [facility] HEMATOCRIT ABG 36(L) 38 - 51 % [facility] PCO2 POC 38 35 - 45 mmHg [facility] SODIUM 133(L) 138 - 146 mEq/L [facility] BASE EXCESS 4(H) -2 - 3 mmol/l [facility] Arterial blood specimen (specimen) 07/08/2008 4:[address] MAGISTRATE 07/08/2008 6:[address] MAGISTRATE us Karen Jones MD POINT OF CARE TESTING COM Final Result INTERFACE SYSTEM Refer to clinic/hospital department [facility] CLIA# [id number] [address] [place] [address] * XR CHEST PA OR AP (07/08/2008 4:[address] MAGISTRATE) Anatomical Region Laterality Modality Chest Other 07/08/2008 4:[address] MAGISTRATE Narrative 07/08/2008 5:[address] MAGISTRATE Exam: Chest - Portable Date/Time of Exam: Jul 08, 2008 4:00:58 AM History: Post-operative. Comparisons: 07/08/2008 at 0005. Findings: There has been interval extubation. NG tube and two left-sided chest tubes are again identified stable. Bibasilar atelectasis and/or infiltrates are noted, left greater than right, worsening on the left when compared to prior examination. Bilateral pleural effusions are noted, moderate on the right and small on the left, stable. Pulmonary vascular congestion is noted with mild interstitial edema. No definite evidence for pneumothorax. Impressions: 1. Pulmonary edema, stable. 2. Bibasilar atelectasis and/or infiltrates, left greater than right, worsening on the left compared to prior examination. 3. Persistent bilateral pleural effusions, stable. 4. Interval extubation. Remaining support tubes and lines are stable. - Dictated By: Enoc Soto M.D., Ph.D. Electronically Signed By: Enoc Soto M.D., Ph.D. Date Signed: 07/08/08 SDM Procedure Note Enoc Soto - 07/08/2008 Exam: Chest - Portable Date/Time of Exam: Jul 08, 2008 4:00:58 AM History: Post-operative. Comparisons: 07/08/2008 at 0005. Findings: There has been interval extubation. NG tube and two left-sidedchest tubes are again identified stable. Bibasilar atelectasis and/or infiltrates are noted, left greaterthan right, worsening on the left when compared to prior examination. Bilateral pleural effusions arenoted, moderate on the right and small on the left, stable. Pulmonary vascular congestion is noted withmild interstitial edema. No definite evidence for pneumothorax. Impressions: 1. Pulmonary edema, stable. 2. Bibasilar atelectasis and/or infiltrates, left greater than right,worsening on the left compared to prior examination. 3. Persistent bilateral pleural effusions, stable. 4. Interval extubation. Remaining support tubes and lines are stable. - Dictated By: Enoc Soto M.D., Ph.D. Electronically Signed By: Enoc Soto M.D., Ph.D. Date Signed: 07/08/08 SDM us Karen Brooke MD DIAGNOSTIC IMAGING ORD ERABLES Final Result * PTT (07/08/2008 3:[address] MAGISTRATE) PTT 33.2 22.5 - 36.5 Secs [facility] Comment: Therapeutic Range: Hi-level PE/DVT heparin protocol 80.1 -95.0 sec Lo-level PE/DVT heparin protocol 67.1 - 80.0 sec Cardiac Heparin Protocol 67.1 - 85.0 sec Neuro Heparin Protocol 67.1 - 80.0 sec As of 11/07/2007 note change in APTT Normal Range. Blood specimen (specimen) 07/08/2008 3:[address] MAGISTRATE 07/08/2008 3:[address] MAGISTRATE us Jean Claude Vann MD HEMATOLOGY ORDERABLES Final R esult INTERFACE SYSTEM Refer to clinic/hospital department [facility] CLIA# [id number] [address] [place] [address], [place] [address] * (ABNORMAL) PROTIME-INR (07/08/2008 3:[address] MAGISTRATE) Pathologist [facility] INR 1.2 [facility] Comment: Expected Values for INR: DVT/PE Goal INR 2.5; range 2.0 - 3.0 Valve Replacement Tissue Goal INR 2.5; range 2.0 - 3.0 Mechanical Goal INR 3.0; range 2.5 - 3.5 POST-RI Goal INR 2.5; range 2.0 - 3.0 or Goal 3.0; range 2.5 - 3.5 Atrial Fibrillation Goal INR 2.5; range 2.0 - 3.0 Ischemic Stroke Goal INR 2.5; range 2.0 - 3.0 For additional information see Guidelines for Anticoagulation available from the pharmacy Lisa Gonzalez D. [phone] PROTIME 16.2(H) 12.8 - 15.8 Secs [facility] Comment:As of 2007 not e change in normal range. Blood specimen (specimen) 07/08/2008 3:[address] MAGISTRATE 07/08/2008 3:[address] MAGISTRATE us Jean Claude Vann MD HEMATOLOGY ORDERABLES Final R esult INTERFACE SYSTEM Refer to clinic/hospital department [facility] CLIA# [id number] [address] [place] [address] * (ABNORMAL) BASIC METABOLIC PANEL (07/08/2008 3:[address] MAGISTRATE) CREATININE 0.5(L) 0.7 - 1.2 mg/dL [facility] CALCIUM 8.4 8.4 - 10.5 mg/dL [facility] GLUCOSE 192(H) 70 - 110 mg/dL [facility] CHLORIDE 101 95 - 110 mEq/L [facility] ANION GAP 13 9 - 20 mEq/L [facility] SODIUM 135(L) 136 - 145 mEq/L [facility] BUN 16 7 - 17 mg/dL [facility] CO2 26 22 - 32 mmol/l [facility] POTASSIUM 4.7 3.5 - 5.0 mEq/L [facility] OSMOLALITY, CALCULATED 286 275 - 295 mOsm/Kg [facility] Blood specimen (specimen) 07/08/2008 3:[address] MAGISTRATE 07/08/2008 3:[address] MAGISTRATE us Jean Claude Vann MD CHEMISTRY ORDERABLES Final Re sult INTERFACE SYSTEM Refer to clinic/hospital department [facility] CLIA# [id number] [address] [place] [address] * (ABNORMAL) CBC WITH DIFFERENTIAL (07/08/2008 3:[address] MAGISTRATE) WBC 22.7(H) 4.5 - 11.0 K/ul [facility] MCH 28.5 27.0 - 34.0 pg [facility] LYMPHOCYTE ABSOLUTE 0.9(L) 1.2 - 4.0 K/ul [facility] NEUTROPHILS 90.9(H) 42.2 - 75.2 % [facility] HEMATOCRIT 38.4 36.0 - 46.0 % [facility] BASOPHILS 0.1 0.0 - 1.0 % [facility] PLATELETS 425 140 - 440 K/ul [facility] RBC 4.42 4.20 - 5.40 Mil/ul [facility] LYMPHOCYTES 3.9(L) 24.0 - 44.0 % [facility] MCHC 32.8 30.0 - 35.0 g/dL [facility] MONOCYTE ABSOLUTE 1.2(H) 0.1 - 0.6 K/ul [facility] MCV 86.9 84.0 - 103.0 Fl [facility] MPV 9.5 8.9 - 12.8 Fl [facility] NEUTROPHIL ABSOLUTE 20.7(H) 2.0 - 8.0 K/ul [facility] HEMOGLOBIN 12.6 12.0 - 16.0 g/dL [facility] RDW 14.7(H) 11.0 - 14.5 % [facility] BASOPHILS ABSOLUTE 0.0 0.0 - 0.2 K/ul [facility] MONOCYTES 5.1 2.0 - 10.0 % [facility] Blood specimen (specimen) 07/08/2008 3:[address] MAGISTRATE 07/08/2008 3:[address] MAGISTRATE Jean Claude Vann MD HEMATOLOGY ORDERABLES Final R esult Performing Organization Address City/[facility] Co de Phone Number INTERFACE SYSTEM Refer to clinic/hospital department [facility] CLIA# [id number] [address] [place] [address] * MRSA CULTURE (07/08/2008 1:[address] MAGISTRATE) FINAL REPORT Culture screen for MRSA negative INTERFACE SYSTEM ANTERIOR NARES SWAB / Unknown 07/08/2008 1:[address] MAGISTRATE 07/08/2008 7:[address] MAGISTRATE Jean Claude Vann MD MICROBIOLOGY - GENERAL ORDERA BLES Final Result Performing Organization Address [facility] Phone Number INTERFACE SYSTEM Refer to clinic/hospital department * XR CHEST PA OR AP (07/07/2008 11:[address] MAGISTRATE) Anatomical Region Laterality Modality Chest Other 07/07/2008 11:[address] MAGISTRATE Narrative 07/08/2008 5:[address] MAGISTRATE Exam: Chest - Portable Date/Time of Exam: Jul 07, 2008 11:07:50 PM History: Post-operative. Comparisons: 07/04/2008 at 2108. Findings: Interval intubation with selective intubation of left mainstem bronchus is noted. There has been interval placement of an NG tube with the tip overlying the stomach. There has been interval placement of 2 left-sided chest tubes. No evidence for pneumothorax. Bibasilar atelectasis and/or infiltrates are noted with bilateral pleural effusions, moderate on the right and small on the left. Impressions: 1. Postoperative changes with support tubes and lines as described. 2. Bibasilar atelectasis and/or infiltrates with bilateral pleural effusions. - Dictated By: Enoc Soto M.D., Ph.D. Electronically Signed By: Enoc Soto M.D., Ph.D. Date Signed: 07/08/08 GRB Procedure Note Enoc Soto - 07/08/2008 Exam: Chest - Portable Date/Time of Exam: Jul 07, 2008 11:07:50 PM History: Post-operative. Comparisons: 07/04/2008 at 2108. Findings: Interval intubation with selective intubation of left mainstembronchus is noted. There has been interval placement of an NG tube with the tip overlying the stomach.There has been interval placement of 2 left-sided chest tubes. No evidence for pneumothorax.Bibasilar atelectasis and/or infiltrates are noted with bilateral pleural effusions, moderate on theright and small on the left. Impressions: 1. Postoperative changes with support tubes and lines as described. 2. Bibasilar atelectasis and/or infiltrates with bilateral pleuraleffusions. - Dictated By: Enoc Soto M.D., Ph.D. Electronically Signed By: Enoc Soto M.D., Ph.D. Date Signed: 07/08/08 GRB Karen Brooke MD DIAGNOSTIC IMAGING ORD ERABLES Final Result * (ABNORMAL) POC ISTAT EG 7+ (07/07/2008 10:[address] MAGISTRATE) FIO2 100 [facility] HEMOGLOBIN POC 12.6 +/-3 g/dL 12.0 - 16.0 g/dL [facility] PCO2 TEMP CORRECT 44 35 - 45 mmHg [facility] POTASSIUM 4.2 3.5 - 4.9 mEq/L [facility] PH TEMP CORRECT 7.38 7.35 - 7.45 Unit [facility] HCO3 (CALC) POC 25.7 22.0 - 26.0 mmol/l [facility] TCO2 (CALC) POC 27 23 - 27 mmol/l [facility] TEMPERATURE 37.3 DegC [facility] PO2 72(L) 80 - 105 mmHg [facility] CALCIUM IONIZED 1.06(L) 1.12 - 1.32 mmol/l [facility] HEMATOCRIT ABG 37(L) 38 - 51 % [facility] SPECIMEN TYPE Arterial [facility] Comment: Test Performed By [id number] Sample not collected by [facility] Hemoglobin calculated from Hematocrit result PCO2 POC 43 35 - 45 mmHg [facility] SODIUM 135(L) 138 - 146 mEq/L [facility] BASE EXCESS 1 -2 - 3 mmol/l [facility] PH 7.38 7.35 - 7.45 Unit [facility] O2 SATURATION 94(L) 95 - 98 % [facility] PO2 TEMP CORRECT 74(L) 80 - 105 mmHg [facility] Arterial blood specimen (specimen) 07/07/2008 10:[address] MAGISTRATE 07/07/2008 10:[address] MAGISTRATE us Karen Jones MD POINT OF CARE TESTING COM Final Result INTERFACE SYSTEM Refer to clinic/hospital department [facility] CLIA# [id number] [address] [place] [address] * (ABNORMAL) CBC WITH DIFFERENTIAL (07/07/2008 10:[address] MAGISTRATE) RBC 4.32 4.20 - 5.40 Mil/ul [facility] MCHC 33.0 30.0 - 35.0 g/dL [facility] LYMPHOCYTE ABSOLUTE 2.2 1.2 - 4.0 K/ul [facility] LYMPHOCYTES 5.8(L) 24.0 - 44.0 % [facility] MCV 87.7 84.0 - 103.0 Fl [facility] BASOPHILS 0.2 0.0 - 1.0 % [facility] MPV 9.4 8.9 - 12.8 Fl [facility] BASOPHILS ABSOLUTE 0.1 0.0 - 0.2 K/ul [facility] HEMOGLOBIN 12.5 12.0 - 16.0 g/dL [facility] MONOCYTES 6.1 2.0 - 10.0 % [facility] RDW 14.0 11.0 - 14.5 % [facility] MONOCYTE ABSOLUTE 2.3(H) 0.1 - 0.6 K/ul [facility] WBC 38.0(H) 4.5 - 11.0 K/ul [facility] NEUTROPHILS 87.4(H) 42.2 - 75.2 % [facility] MCH 28.9 27.0 - 34.0 pg [facility] NEUTROPHIL ABSOLUTE 33.2(H) 2.0 - 8.0 K/ul [facility] HEMATOCRIT 37.9 36.0 - 46.0 % [facility] PLATELETS 516(H) 140 - 440 K/ul [facility] EOSINOPHIL ABSOLUTE 0.2 0.0 - 0.7 K/ul [facility] EOSINOPHILS 0.5 0.0 - 7.0 % [facility] PERIPHERAL BLOOD SMEAR REVIEW Automated Diff [facility] Blood specimen (specimen) 07/07/2008 10:[address] MAGISTRATE 07/07/2008 10:[address] MAGISTRATE us Karen Jones MD HEMATOLOGY ORDERABLES Final Resu lt INTERFACE SYSTEM Refer to clinic/hospital department [facility] CLIA# [id number] [address] [place] [address] * (ABNORMAL) PT AND APTT (07/07/2008 10:[address] MAGISTRATE) PTT 34.3 22.5 - 36.5 Secs [facility] Comment: Therapeutic Range: Hi-level PE/DVT heparin protocol 80.1 -95.0 sec Lo-level PE/DVT heparin protocol 67.1 - 80.0 sec Cardiac Heparin Protocol 67.1 - 85.0 sec Neuro Heparin Protocol 67.1 - 80.0 sec As of 11/07/2007 note change in APTT Normal Range. PROTIME 16.6(H) 12.8 - 15.8 Secs [facility] Comment:As of 2007 not e change in normal range. INR 1.2 [facility] Comment: Expected Values for INR: DVT/PE Goal INR 2.5; range 2.0 - 3.0 Valve Replacement Tissue Goal INR 2.5; range 2.0 - 3.0 Mechanical Goal INR 3.0; range 2.5 - 3.5 POST-RI Goal INR 2.5; range 2.0 - 3.0 or Goal 3.0; range 2.5 - 3.5 Atrial Fibrillation Goal INR 2.5; range 2.0 - 3.0 Ischemic Stroke Goal INR 2.5; range 2.0 - 3.0 For additional information see Guidelines for Anticoagulation available from the pharmacy Lisa Gonzalez. [phone] Blood specimen (specimen) 07/07/2008 10:[address] MAGISTRATE 07/07/2008 10:[address] MAGISTRATE Karen Jones MD HEMATOLOGY ORDERABLES Edited Performing Organization Address City/[facility] Co de Phone Number INTERFACE SYSTEM Refer to clinic/hospital department [facility] CLIA# [id number] [address] [place] [address] * AFB CULTURE WITH STAIN (07/07/2008 9:[address] MAGISTRATE) FINAL REPORT No AFB isolated INTERFACE SYSTEM AFB STAIN Acid fast smear: No acid fast bacilli observed INTERFACE SYSTEM Pleural 07/07/2008 9:[address] MAGISTRATE 07/07/2008 9:[address] MAGISTRATE Karen Jones MD MICROBIOLOGY - GENERAL ORDERABLE S Final Result Performing Organization Address City/[facility] Co de Phone Number INTERFACE SYSTEM Refer to clinic/hospital department * FUNGUS CULTURE, OTHER (07/07/2008 9:[address] MAGISTRATE) FINAL REPORT No fungus isolated INTERFACE SYSTEM Pleural 07/07/2008 9:[address] MAGISTRATE 07/07/2008 9:[address] MAGISTRATE Karen Jones MD MICROBIOLOGY - GENERAL ORDERABLE S Final Result Performing Organization Address [facility] Phone Number INTERFACE SYSTEM Refer to clinic/hospital department * ANAEROBIC CULTURE (07/07/2008 9:[address] MAGISTRATE) FINAL REPORT No growth anaerobically INTERFACE SYSTEM Pleural 07/07/2008 9:[address] MAGISTRATE 07/07/2008 9:[address] MAGISTRATE Karen Jones MD MICROBIOLOGY - GENERAL ORDERABLE S Final Result Performing Organization Address [facility] Phone Number INTERFACE SYSTEM Refer to clinic/hospital department * ANAEROBIC/AEROBIC CULTURE W GRAM STAIN (07/07/2008 9:[address] MAGISTRATE) FINAL REPORT No growth INTERFA CE SYSTEM GRAM STAIN No organisms observed Occasional (0-1/oil hpf) PMN WBC's observed INTERFACE SYSTEM Pleural 07/07/2008 9:[address] MAGISTRATE 07/07/2008 9:[address] MAGISTRATE Karen Jones MD MICROBIOLOGY - GENERAL ORDERABLE S Final Result Performing Organization Address [facility] Phone Number INTERFACE SYSTEM Refer to clinic/hospital department * AFB CULTURE WITH STAIN (07/07/2008 9:[address] MAGISTRATE) FINAL REPORT No AFB isolated INTERFACE SYSTEM AFB STAIN Acid fast smear: No acid fast bacilli observed INTERFACE SYSTEM PLEURAL FLUID SPECIMEN / Unknown 07/07/2008 9:[address] MAGISTRATE 07/07/2008 9:[address] MAGISTRATE Karen Jones MD MICROBIOLOGY - GENERAL ORDERABLE S Final Result Performing Organization Address City/[facility] de Phone Number INTERFACE SYSTEM Refer to clinic/hospital department * FUNGUS CULTURE, OTHER (07/07/2008 9:[address] MAGISTRATE) FINAL REPORT No fungus isolated INTERFACE SYSTEM PLEURAL FLUID SPECIMEN / Unknown 07/07/2008 9:[address] MAGISTRATE 07/07/2008 9:[address] MAGISTRATE Karen Jones MD MICROBIOLOGY - GENERAL ORDERABLE S Final Result Performing Organization Address [facility] Phone Number INTERFACE SYSTEM Refer to clinic/hospital department * ANAEROBIC CULTURE (07/07/2008 9:[address] MAGISTRATE) FINAL REPORT No growth anaerobically INTERFACE SYSTEM PLEURAL FLUID SPECIMEN / Unknown 07/07/2008 9:[address] MAGISTRATE 07/07/2008 9:[address] MAGISTRATE Karen Jones MD MICROBIOLOGY - GENERAL ORDERABLE S Final Result Performing Organization Address [facility] Phone Number INTERFACE SYSTEM Refer to clinic/hospital department * BODY FLUID CULTURE WITH GRAM STAIN (07/07/2008 9:[address] MAGISTRATE) GRAM STAIN No organisms observed Few (2-5/oil hpf) PMN WBC's observed INTERFACE SYSTEM FINAL REPORT No growth INTERFA CE SYSTEM PLEURAL FLUID SPECIMEN / Unknown 07/07/2008 9:[address] MAGISTRATE 07/07/2008 9:[address] MAGISTRATE Karen Jones MD MICROBIOLOGY - GENERAL ORDERABLE S Final Result Performing Organization Address [facility] Phone Number INTERFACE SYSTEM Refer to clinic/hospital department * (ABNORMAL) POC ISTAT EG 7+ (07/07/2008 9:[address] MAGISTRATE) SODIUM 135(L) 138 - 146 mEq/L [facility] PH 7.36 7.35 - 7.45 Unit [facility] PO2 TEMP CORRECT 55(L) 80 - 105 mmHg [facility] O2 SATURATION 85(L) 95 - 98 % [facility] FIO2 100 [facility] PCO2 TEMP CORRECT 53(H) 35 - 45 mmHg [facility] POTASSIUM 4.1 3.5 - 4.9 mEq/L [facility] HEMOGLOBIN POC 10.9 +/-3 g/dL 12.0 - 16.0 g/dL [facility] PH TEMP CORRECT 7.36 7.35 - 7.45 Unit [facility] TCO2 (CALC) POC 31(H) 23 - 27 mmol/l [facility] HCO3 (CALC) POC 29.1(H) 22.0 - 26.0 mmol/l [facility] TEMPERATURE 37.6 DegC [facility] HEMATOCRIT ABG 32(L) 38 - 51 % [facility] PO2 53(L) 80 - 105 mmHg [facility] CALCIUM IONIZED 1.17 1.12 - 1.32 mmol/l [facility] SPECIMEN TYPE Arterial [facility] Comment: Test Performed By [id number] Sample not collected by [facility] Hemoglobin calculated from Hematocrit result PCO2 POC 51(H) 35 - 45 mmHg [facility] BASE EXCESS 4(H) -2 - 3 mmol/l [facility] Arterial blood specimen (specimen) 07/07/2008 9:[address] MAGISTRATE 07/07/2008 9:[address] MAGISTRATE us Karen Jones MD POINT OF CARE TESTING COM Final Result INTERFACE SYSTEM Refer to clinic/hospital department [facility] CLIA# [id number] [address] [place] [address] * (ABNORMAL) POC ISTAT EG 7+ (07/07/2008 8:[address] MAGISTRATE) TEMPERATURE 37.8 DegC [facility] PO2 213(H) 80 - 105 mmHg [facility] CALCIUM IONIZED 1.17 1.12 - 1.32 mmol/l [facility] HEMATOCRIT ABG 36(L) 38 - 51 % [facility] SPECIMEN TYPE Arterial [facility] Comment: Test Performed By [id number] Sample not collected by [facility] Hemoglobin calculated from Hematocrit result PCO2 POC 51(H) 35 - 45 mmHg [facility] SODIUM 135(L) 138 - 146 mEq/L [facility] BASE EXCESS 8(H) -2 - 3 mmol/l [facility] PH 7.41 7.35 - 7.45 Unit [facility] O2 SATURATION 100(H) 95 - 98 % [facility] PO2 TEMP CORRECT 217(H) 80 - 105 mmHg [facility] FIO2 100 [facility] HEMOGLOBIN POC 12.2 +/-3 g/dL 12.0 - 16.0 g/dL [facility] PCO2 TEMP CORRECT 52(H) 35 - 45 mmHg [facility] POTASSIUM 3.8 3.5 - 4.9 mEq/L [facility] PH TEMP CORRECT 7.40 7.35 - 7.45 Unit [facility] HCO3 (CALC) POC 32.1(H) 22.0 - 26.0 mmol/l [facility] TCO2 (CALC) POC 34(H) 23 - 27 mmol/l [facility] Arterial blood specimen (specimen) 07/07/2008 8:[address] MAGISTRATE 07/07/2008 8:[address] MAGISTRATE us Karen Jones MD POINT OF CARE TESTING COM Final Result INTERFACE SYSTEM Refer to clinic/hospital department [facility] CLIA# [id number] [address] [place] [address] * PATHOLOGY (07/07/2008 8:[address] MAGISTRATE) PATHOLOGY/CYT OLOGY REPORT [facility] Anatomic Pathology Dept [address] [place] [id number] Patient: YASMEEN HOUSE Accn No: [id number] Collected: 07/07/2008 8:13:00 AM SURGICAL PATHOLOGY FINAL REPORT Diagnosis A. Soft tissue, left pleural fluid - acute fibropurulent exudate - please correlate with cultures. Lo Puentes M.D. (Electronically signed by) Verified: 07/09/08 LJW/STEPHANIE Clinical Information Left decortication. Specimen Source ASoft Tissue, LEFT PLEURAL FLUID Microscopic Description Microscopic examination was performed. Gross Description Part A. Received fresh in a container labelled Patrick, #1 left pleural fluid is an aggregate of grayish-white suppurative, friable material measuring 7.5 x 5.5 x 2.1 cm. Sketch Artist sections are submitted in A1. NOTE: The specimen has been previously sent to Microbiology for cultures. DLS/CEP INTERFACE SYSTEM 07/07/2008 8:[address] MAGISTRATE Karen Brooke MD PATHOLOGY/CYTOLOGY ORD ERABLES Final Result INTERFACE SYSTEM Refer to clinic/hospital department * (ABNORMAL) BASIC METABOLIC PANEL (07/07/2008 6:[address] MAGISTRATE) BUN 12 7 - 17 mg/dL [facility] CO2 27 22 - 32 mmol/l [facility] POTASSIUM 4.1 3.5 - 5.0 mEq/L [facility] OSMOLALITY, CALCULATED 285 275 - 295 mOsm/Kg [facility] CREATININE 0.6(L) 0.7 - 1.2 mg/dL [facility] CALCIUM 9.4 8.4 - 10.5 mg/dL [facility] GLUCOSE 120(H) 70 - 110 mg/dL [facility] CHLORIDE 100 95 - 110 mEq/L [facility] ANION GAP 15 9 - 20 mEq/L [facility] SODIUM 138 136 - 145 mEq/L [facility] Blood specimen (specimen) 07/07/2008 6:[address] MAGISTRATE 07/07/2008 6:[address] MAGISTRATE us Karen Brooke MD CHEMISTRY ORDERABLES F inal Result INTERFACE SYSTEM Refer to clinic/hospital department [facility] CLIA# [id number] [address] [place] [address] * (ABNORMAL) CBC WITH DIFFERENTIAL (07/07/2008 6:[address] MAGISTRATE) NEUTROPHILS 81.1(H) 42.2 - 75.2 % [facility] MCH 28.9 27.0 - 34.0 pg [facility] NEUTROPHIL ABSOLUTE 10.1(H) 2.0 - 8.0 K/ul [facility] HEMATOCRIT 37.3 36.0 - 46.0 % [facility] PLATELETS 527(H) 140 - 440 K/ul [facility] EOSINOPHIL ABSOLUTE 0.2 0.0 - 0.7 K/ul [facility] EOSINOPHILS 1.4 0.0 - 7.0 % [facility] RBC 4.19(L) 4.20 - 5.40 Mil/ul [facility] MCHC 32.4 30.0 - 35.0 g/dL [facility] LYMPHOCYTE ABSOLUTE 1.0(L) 1.2 - 4.0 K/ul [facility] LYMPHOCYTES 8.0(L) 24.0 - 44.0 % [facility] MCV 89.0 84.0 - 103.0 Fl [facility] BASOPHILS 0.2 0.0 - 1.0 % [facility] MPV 9.3 8.9 - 12.8 Fl [facility] BASOPHILS ABSOLUTE 0.0 0.0 - 0.2 K/ul [facility] HEMOGLOBIN 12.1 12.0 - 16.0 g/dL [facility] MONOCYTES 9.3 2.0 - 10.0 % [facility] RDW 13.7 11.0 - 14.5 % [facility] MONOCYTE ABSOLUTE 1.2(H) 0.1 - 0.6 K/ul [facility] WBC 12.4(H) 4.5 - 11.0 K/ul [facility] Blood specimen (specimen) 07/07/2008 6:[address] MAGISTRATE 07/07/2008 6:[address] MAGISTRATE us Jean Claude Vann MD HEMATOLOGY ORDERABLES Final R esult INTERFACE SYSTEM Refer to clinic/hospital department [facility] CLIA# [id number] [address] [place] [address] * CT CHEST WO CONTRAST (07/06/2008 7:[address] MAGISTRATE) Anatomical Region Laterality Modality Chest Other 07/06/2008 7:[address] MAGISTRATE Narrative 07/07/2008 7:[address] Chest Without IV Contrast 07/06/2008. History: Difficulty breathing. Procedure: A routine CT scan of the chest was obtained without IV contrast. Findings: 1. There is a moderate amount of right pleural fluid. Part of it may be loculated with fluid extending along most of the diaphragm, but most is free fluid and layered in the posterior pleural space. 2. There is a loculated pleural fluid collection in the anterior left lung base, 2.9 mm thick x 10.8 cm in maximum cross-sectional diameter by approximately 5.4 cm in longitudinal diameter. It has a visible rim. There are no air bubbles. There is a smaller loculated fluid collection in the posterior left lung base, and a tiny loculated pleural fluid collection along the left side of the heart. 3. There is dense atelectasis and possibly consolidation in the left lower lobe, sparing part of the left lung base. Much of the lingula is also affected. There are multiple linear densities probably due to atelectasis in the left lung base. 4. The left lower lobe has a calcified probable granuloma, 6 mm in diameter. 5. There is distortion of some of the pulmonary markings, mainly in the bilateral upper lobes, consistent with mild emphysema. 6. There is no pneumothorax. 7. There is pericardial fluid. 8. The aortic arch has minimal calcification without aneurysmal dilatation. 9. There is no mediastinal or axillary lymphadenopathy. 10. The spleen has a tiny calcification, probably a calcified granuloma. 11. The partially included right adrenal has a 1.5 x 2.5 cm nodule, with internal density consistent with a cyst or benign adenoma. The left adrenal is not well enough included for adequate evaluation. 12. There is no identified abnormality of the partially included liver. 13. There are mild degenerative changes in the thoracic spine. Impression: Right pleural fluid. Loculated collections of left pleural fluid. Dense atelectasis and possible consolidation in the left lung lower lobe and much of the lingula. Multiple linear densities probably due to atelectasis in the left lung base. Old granulomatous disease. Mild emphysema. Pericardial fluid. Minimal atherosclerosis. Right adrenal benign nodule. Mild degenerative changes in the thoracic spine. - Dictated By: Sakina Paul M.D. Electronically Signed By: Sakina Paul M.D. Date Signed: 07/07/08 AMA Procedure Note Sakina Paul R - 07/07/2008 CT Chest Without IV Contrast 07/06/2008. History: Difficulty breathing. Procedure: A routine CT scan of the chest was obtained without IVcontrast. Findings: 1. There is a moderate amount of right pleural fluid. Part of it may beloculated with fluid extending along most of the diaphragm, but most is free fluid and layered in theposterior pleural space. 2. There is a loculated pleural fluid collection in the anterior left lungbase, 2.9 mm thick x 10.8 cm in maximum cross-sectional diameter by approximately 5.4 cm inlongitudinal diameter. It has a visible rim. There are no air bubbles. There is a smaller loculated fluidcollection in the posterior left lung base, and a tiny loculated pleural fluid collection along the left side ofthe heart. 3. There is dense atelectasis and possibly consolidation in the left lowerlobe, sparing part of the left lung base. Much of the lingula is also affected. There are multiplelinear densities probably due to atelectasis in the left lung base. 4. The left lower lobe has a calcified probable granuloma, 6 mm indiameter. 5. There is distortion of some of the pulmonary markings, mainly in thebilateral upper lobes, consistent with mild emphysema. 6. There is no pneumothorax. 7. There is pericardial fluid. 8. The aortic arch has minimal calcification without aneurysmaldilatation. 9. There is no mediastinal or axillary lymphadenopathy. 10. The spleen has a tiny calcification, probably a calcified granuloma. 11. The partially included right adrenal has a 1.5 x 2.5 cm nodule, withinternal density consistent with a cyst or benign adenoma. The left adrenal is not well enough includedfor adequate evaluation. 12. There is no identified abnormality of the partially included liver. 13. There are mild degenerative changes in the thoracic spine. Impression: Right pleural fluid. Loculated collections of left pleuralfluid. Dense atelectasis and possible consolidation in the left lung lower lobe and much of thelingula. Multiple linear densities probably due to atelectasis in the left lung base. Old granulomatousdisease. Mild emphysema. Pericardial fluid. Minimal atherosclerosis. Right adrenal benign nodule. Milddegenerative changes in the thoracic spine. - Dictated By: Sakina Paul M.D. Electronically Signed By: Sakina Paul M.D. Date Signed: 07/07/08 AMA Karen Brooke MD CT ORDERABLES Final Result * ANTIBODY SCREEN (07/06/2008 6:[address] MAGISTRATE) Pathologist [facility] ANTIBODY SCREEN Negative [facility] Blood specimen (specimen) 07/06/2008 6:[address] MAGISTRATE 07/06/2008 6:[address] MAGISTRATE Narrative INTERFACE SYSTEM - 07/06/2008 7:[address] MAGISTRATE T&C 2 units & hold Karen Brooke MD BLOOD BANK ORDERABLES Final Result INTERFACE SYSTEM Refer to clinic/hospital department [facility] CLIA# [id number] [address] [place] [address] * ABORH TYPING (07/06/2008 6:[address] MAGISTRATE) ABO/RH TYPE O Positive [facility] Blood specimen (specimen) 07/06/2008 6:[address] MAGISTRATE 07/06/2008 6:[address] MAGISTRATE Narrative INTERFACE SYSTEM - 07/06/2008 7:[address] MAGISTRATE T&C 2 units & hold Karen Brooke MD BLOOD BANK ORDERABLES Final Result Performing Organization Address City/[facility] Co de Phone Number INTERFACE SYSTEM Refer to clinic/hospital department [facility] CLIA# [id number] [address] [place] [address] * TYPE AND CROSSMATCH (07/06/2008 6:[address] MAGISTRATE) BLOOD BANK PRODUCT INTERFACE SYSTEM Blood specimen (specimen) 07/06/2008 6:[address] MAGISTRATE 07/06/2008 6:[address] MAGISTRATE Narrative INTERFACE SYSTEM - 07/07/2008 9:[address] MAGISTRATE T&C 2 units & hold Karen Brooke MD BLOOD BANK ORDERABLES Edited Performing Organization Address City/[facility] Co de Phone Number INTERFACE SYSTEM Refer to clinic/hospital department * (ABNORMAL) BASIC METABOLIC PANEL (07/06/2008 5:[address] MAGISTRATE) CREATININE 0.6(L) 0.7 - 1.2 mg/dL [facility] CALCIUM 9.2 8.4 - 10.5 mg/dL [facility] GLUCOSE 123(H) 70 - 110 mg/dL [facility] CHLORIDE 100 95 - 110 mEq/L [facility] SODIUM 137 136 - 145 mEq/L [facility] ANION GAP 14 9 - 20 mEq/L [facility] BUN 12 7 - 17 mg/dL [facility] CO2 28 22 - 32 mmol/l [facility] OSMOLALITY, CALCULATED 284 275 - 295 mOsm/Kg [facility] POTASSIUM 4.5 3.5 - 5.0 mEq/L [facility] Blood specimen (specimen) 07/06/2008 5:[address] MAGISTRATE 07/06/2008 6:[address] MAGISTRATE us Kathy Anglin MD CHEMISTRY ORDERABLES Final Resu lt INTERFACE SYSTEM Refer to clinic/hospital department [facility] CLIA# [id number] [address] [place] [address] * (ABNORMAL) CBC WITH DIFFERENTIAL (07/06/2008 5:[address] MAGISTRATE) MONOCYTES 9.9 2.0 - 10.0 % [facility] RDW 13.6 11.0 - 14.5 % [facility] MONOCYTE ABSOLUTE 1.2(H) 0.1 - 0.6 K/ul [facility] WBC 11.6(H) 4.5 - 11.0 K/ul [facility] NEUTROPHILS 80.2(H) 42.2 - 75.2 % [facility] MCH 28.5 27.0 - 34.0 pg [facility] NEUTROPHIL ABSOLUTE 9.3(H) 2.0 - 8.0 K/ul [facility] HEMATOCRIT 36.7 36.0 - 46.0 % [facility] PLATELETS 533(H) 140 - 440 K/ul [facility] EOSINOPHIL ABSOLUTE 0.1 0.0 - 0.7 K/ul [facility] EOSINOPHILS 1.2 0.0 - 7.0 % [facility] RBC 4.10(L) 4.20 - 5.40 Mil/ul [facility] MCHC 31.9 30.0 - 35.0 g/dL [facility] LYMPHOCYTE ABSOLUTE 1.0(L) 1.2 - 4.0 K/ul [facility] LYMPHOCYTES 8.4(L) 24.0 - 44.0 % [facility] MCV 89.5 84.0 - 103.0 Fl [facility] BASOPHILS 0.3 0.0 - 1.0 % [facility] MPV 9.5 8.9 - 12.8 Fl [facility] BASOPHILS ABSOLUTE 0.0 0.0 - 0.2 K/ul [facility] HEMOGLOBIN 11.7(L) 12.0 - 16.0 g/dL [facility] Blood specimen (specimen) 07/06/2008 5:[address] MAGISTRATE 07/06/2008 6:[address] MAGISTRATE us Kathy Anglin MD HEMATOLOGY ORDERABLES Final Res ult INTERFACE SYSTEM Refer to clinic/hospital department [facility] CLIA# [id number] [address] [place] [address] * (ABNORMAL) CBC WITH DIFFERENTIAL (07/05/2008 5:[address] MAGISTRATE) HEMATOCRIT 38.1 36.0 - 46.0 % [facility] EOSINOPHILS 0.6 0.0 - 7.0 % [facility] PLATELETS 569(H) 140 - 440 K/ul [facility] EOSINOPHIL ABSOLUTE 0.1 0.0 - 0.7 K/ul [facility] RBC 4.31 4.20 - 5.40 Mil/ul [facility] LYMPHOCYTES 8.2(L) 24.0 - 44.0 % [facility] MCHC 32.5 30.0 - 35.0 g/dL [facility] LYMPHOCYTE ABSOLUTE 1.2 1.2 - 4.0 K/ul [facility] MCV 88.4 84.0 - 103.0 Fl [facility] MPV 9.6 8.9 - 12.8 Fl [facility] BASOPHILS ABSOLUTE 0.0 0.0 - 0.2 K/ul [facility] BASOPHILS 0.1 0.0 - 1.0 % [facility] HEMOGLOBIN 12.4 12.0 - 16.0 g/dL [facility] RDW 13.5 11.0 - 14.5 % [facility] MONOCYTE ABSOLUTE 1.5(H) 0.1 - 0.6 K/ul [facility] MONOCYTES 10.3(H) 2.0 - 10.0 % [facility] WBC 14.2(H) 4.5 - 11.0 K/ul [facility] MCH 28.8 27.0 - 34.0 pg [facility] NEUTROPHIL ABSOLUTE 11.5(H) 2.0 - 8.0 K/ul [facility] NEUTROPHILS 80.8(H) 42.2 - 75.2 % [facility] Blood specimen (specimen) 07/05/2008 5:[address] MAGISTRATE 07/05/2008 6:[address] MAGISTRATE us Jean Claude Vann MD HEMATOLOGY ORDERABLES Final R esult Performing Organization Address City/[facility] de Phone Number INTERFACE SYSTEM Refer to clinic/hospital department [facility] CLIA# [id number] [address] [place] [address] * (ABNORMAL) BASIC METABOLIC PANEL (07/05/2008 5:[address] MAGISTRATE) ANION GAP 15 9 - 20 mEq/L [facility] SODIUM 137 136 - 145 mEq/L [facility] BUN 11 7 - 17 mg/dL [facility] CO2 28 22 - 32 mmol/l [facility] POTASSIUM 4.3 3.5 - 5.0 mEq/L [facility] OSMOLALITY, CALCULATED 284 275 - 295 mOsm/Kg [facility] CREATININE 0.4(L) 0.7 - 1.2 mg/dL [facility] CALCIUM 9.3 8.4 - 10.5 mg/dL [facility] GLUCOSE 123(H) 70 - 110 mg/dL [facility] CHLORIDE 98 95 - 110 mEq/L [facility] Blood specimen (specimen) 07/05/2008 5:[address] MAGISTRATE 07/05/2008 6:[address] MAGISTRATE us Jean Claude Vann MD CHEMISTRY ORDERABLES Final Re sult Performing Organization Address City/[facility]/ZIP Co de Phone Number INTERFACE SYSTEM Refer to clinic/hospital department [facility] CLIA# [id number] [address] [place] [address] * XR CHEST PA AND LATERAL (07/04/2008 9:[address] MAGISTRATE) Anatomical Region Laterality Modality Chest Other 07/04/2008 9:[address] MAGISTRATE Narrative 07/04/2008 10:[address] MAGISTRATE Two views of the chest are provided and no old study is available. The heart size is within normal limits. Bibasilar airspace opacities are identified. There are also bilateral pleural effusions. Elevation of the left hemidiaphragm is noted and it appears there is also a small to moderate sized left pleural effusion with volume loss and possibly subpulmonic fluid. There is no pneumothorax. Mild vascular congestion with interstitial edema is also noted. Degenerative changes are noted in the spine. Impression: 1. Prominent basilar airspace opacities with effusions concerning for pneumonia with mild interstitial CHF. - Dictated By: Mary Mckeon M.D. Electronically Signed By: Mary Mckeon M.D. Date Signed: 07/04/08 GRB Procedure Note Mary Mckeon - 07/04/2008 Two views of the chest are provided and no old study is available. The heart size is within normal limits. Bibasilar airspace opacities areidentified. There are also bilateral pleural effusions. Elevation of the left hemidiaphragm is notedand it appears there is also a small to moderate sized left pleural effusion with volume loss andpossibly subpulmonic fluid. There is no pneumothorax. Mild vascular congestion with interstitial edema is alsonoted. Degenerative changes are noted in the spine. Impression: 1. Prominent basilar airspace opacities with effusions concerning forpneumonia with mild interstitial CHF. - Dictated By: Mary Mckeon M.D. Electronically Signed By: Mary Mckeon M.D. Date Signed: 07/04/08 GRB us Jean Claude Vann MD DIAGNOSTIC IMAGING ORDERABLES Final Result * BLOOD CULTURE (07/04/2008 8:[address] MAGISTRATE) FINAL REPORT No growth INTERFA CE SYSTEM Blood specimen (specimen) 07/04/2008 8:[address] MAGISTRATE 07/04/2008 10:[address] MAGISTRATE Jean Claude Vann MD MICROBIOLOGY - GENERAL ORDERA BLES Final Result Performing Organization Address [facility]/ZIP Co de Phone Number INTERFACE SYSTEM Refer to clinic/hospital department * BLOOD CULTURE (07/04/2008 8:[address] MAGISTRATE) FINAL REPORT No growth INTERFA CE SYSTEM Blood specimen (specimen) 07/04/2008 8:[address] MAGISTRATE 07/04/2008 10:[address] MAGISTRATE Jean Claude Vann MD MICROBIOLOGY - GENERAL ORDERA BLES Final Result Performing Organization Address [facility] Co de Phone Number INTERFACE SYSTEM Refer to clinic/hospital department * (ABNORMAL) BASIC METABOLIC PANEL (07/04/2008 8:[address] MAGISTRATE) BUN 12 7 - 17 mg/dL [facility] CO2 28 22 - 32 mmol/l [facility] OSMOLALITY, CALCULATED 280 275 - 295 mOsm/Kg [facility] POTASSIUM 4.2 3.5 - 5.0 mEq/L [facility] CREATININE 0.4(L) 0.7 - 1.2 mg/dL [facility] CALCIUM 9.3 8.4 - 10.5 mg/dL [facility] GLUCOSE 119(H) 70 - 110 mg/dL [facility] CHLORIDE 97 95 - 110 mEq/L [facility] SODIUM 135(L) 136 - 145 mEq/L [facility] ANION GAP 14 9 - 20 mEq/L [facility] Blood specimen (specimen) 07/04/2008 8:[address] MAGISTRATE 07/04/2008 8:[address] MAGISTRATE Jean Claude Vann MD CHEMISTRY ORDERABLES Final Re sult INTERFACE SYSTEM Refer to clinic/hospital department [facility] CLIA# [id number] [facility] [place] [address] * (ABNORMAL) CBC WITH DIFFERENTIAL (07/04/2008 8:[address] MAGISTRATE) EOSINOPHILS 0.5 0.0 - 7.0 % [facility] PLATELETS 583(H) 140 - 440 K/ul [facility] EOSINOPHIL ABSOLUTE 0.1 0.0 - 0.7 K/ul [facility] RBC 4.25 4.20 - 5.40 Mil/ul [facility] LYMPHOCYTES 10.4(L) 24.0 - 44.0 % [facility] MCHC 32.8 30.0 - 35.0 g/dL [facility] LYMPHOCYTE ABSOLUTE 1.6 1.2 - 4.0 K/ul [facility] MCV 88.9 84.0 - 103.0 Fl [facility] MPV 9.3 8.9 - 12.8 Fl [facility] BASOPHILS ABSOLUTE 0.0 0.0 - 0.2 K/ul [facility] BASOPHILS 0.2 0.0 - 1.0 % [facility] HEMOGLOBIN 12.4 12.0 - 16.0 g/dL [facility] RDW 13.7 11.0 - 14.5 % [facility] MONOCYTE ABSOLUTE 1.5(H) 0.1 - 0.6 K/ul [facility] MONOCYTES 9.8 2.0 - 10.0 % [facility] WBC 15.2(H) 4.5 - 11.0 K/ul [facility] MCH 29.2 27.0 - 34.0 pg [facility] NEUTROPHIL ABSOLUTE 12.0(H) 2.0 - 8.0 K/ul [facility] NEUTROPHILS 79.1(H) 42.2 - 75.2 % [facility] HEMATOCRIT 37.8 36.0 - 46.0 % [facility] Blood specimen (specimen) 07/04/2008 8:[address] MAGISTRATE 07/04/2008 8:[address] MAGISTRATE us Jean Claude Vann MD HEMATOLOGY ORDERABLES Final R esult Performing Organization Address [facility] de Phone Number INTERFACE SYSTEM Refer to clinic/hospital department [facility] CLIA# [id number] [address] [place] [address] * DIGOXIN LEVEL (07/04/2008 8:[address] MAGISTRATE) DIGOXIN LEVEL 1.1 0.8 - 2.0 ng/mL [facility] Blood specimen (specimen) 07/04/2008 8:[address] MAGISTRATE 07/04/2008 8:[address] MAGISTRATE us Jean Claude Vann MD CHEMISTRY ORDERABLES Final Re sult Performing Organization Address [facility] Phone Number INTERFACE SYSTEM Refer to clinic/hospital department [facility] CLIA# [id number] [address] [place] [address] documented in this encounter Visit Diagnoses Diagnosis Pneumonia, organism unspecified(486) Pneumonia, organism unspecified documented in this encounter Care Teams Diamond Finishing Supervisor Relationship Specialty Start Date End Date Danial Carmichael MD PCP - General Family Practice 11/26/12 06/26/18 documented as of this encounter
--- OUTSIDE RECORDS SUMMARY | 2025-07-23 11:55 | XMS_ITS | Encounter Summary ---
Author Organization [facility] Address [address] [place] [address] Care Team Providers Care Clerical Production Worker Name Role Phone Danial Carmichael MD Primary Care Provider +1- [phone] Encounter Details Date Type Department Care Team (Late st Contact Info) Description 11/26/2012 Ancillary Orders [facility] [address] [phone] Danial Carmichael MD [address] [place] [phone] Empyema (CMS/HCC) (Primary Dx) Social History Tobacco Use Types Packs/Day Years Used Date Smoking Tobacco: Former Cigarettes 0 Q uit: 06/14/2008 Alcohol Use Standard Drinks/Week Comments No 0 (1 standard drink = 0.6 oz pur e alcohol) Comments No Sex and Gender Information Value Date Recorded Sex Assigned at Not on file 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
--- OUTSIDE RECORDS SUMMARY | 2025-07-23 11:55 | XMS_ITS | Encounter Summary ---
Author Organization [facility] Address [address] [place] [address] Care Team Providers Care Wood Lathe Operator Name Role Phone Danial Carmichael MD Primary Care Provider +1- [phone] Encounter Details Date Type Department Care Team (Latest Contact Info) Description 12/28/1999 Outpatient Historical [facility] [phone] Jus [place], [address] 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
--- OUTSIDE RECORDS SUMMARY | 2025-07-23 11:55 | XMS_ITS | Encounter Summary ---
Author Organization [facility] Address [address] [place] [address] Care Team Providers Care Bias Cutter Name Role Phone Danial Carmichael MD Primary Care Provider +1- [phone] Encounter Details Date Type Department Care Team (Latest Contact Info) Description 11/29/1999 Outpatient Historical [facility] [phone] Jus Allison, [address] [facility] [address] [place], [place] Unspecified viral infection, in conditions classified elsewhere and of unspecified site (Primary Dx) Social History Tobacco Use Types Packs/Day Years Used Date Smoking Tobacco: Never Assessed Comments Unknown Sex and Gender Information Value Date Recorded Sex Assigned at Not on file 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
--- OUTSIDE RECORDS SUMMARY | 2025-07-23 11:55 | XMS_ITS | Encounter Summary ---
Author Organization [facility] Address [address] [place] [address] Care Team Providers Care Applications Manager Name Role Phone Danial Carmichael MD Primary Care Provider +1- [phone] Encounter Details Date Type Department Care Team (Late st Contact Info) Description 07/20/2014 Ancillary Orders [facility] [employer] [address] [phone] Danial Carmichael MD [address] [place] [address] Radiculopathy of leg (Primary Dx); Lumbar radiculopathy Social History Tobacco Use Types Packs/Day Years Used Date Smoking Tobacco: Former Cigarettes 0 Q uit: 06/14/2008 Alcohol Use Standard Drinks/Week Comments No 0 (1 standard drink = 0.6 oz pur e alcohol) Comments No Sex and Gender Information Value Date Recorded Sex Assigned at Not on file 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 Gender Identity Not on file Sexual Orientation Not on file Occupation Industry Job Start Date Job End Date Not on file Not on file Not on file Not on file documented as of this encounter Plan of Treatment Not on file documented as of this encounter Visit Diagnoses Diagnosis Radiculopathy of leg- Primary Thoracic or lumbosacral neuritis or radiculitis, unspecified Lumbar radiculopathy Thoracic or lumbosacral neuritis or radiculitis, unspecified documented in this encounter Care Teams Applications Manager Relationship Specialty Start Date End Date Danial Carmichael MD PCP - General Family Practice 11/26/12 06/26/18 documented as of this encounter
--- OUTSIDE RECORDS SUMMARY | 2025-07-23 11:55 | XMS_ITS | Encounter Summary ---
Author Organization [facility] Address [address] [place] [address] Care Team Providers Care Loader Unloader Name Role Phone Danial Carmichael MD Primary Care Provider [phone]- [phone] Encounter Details Date Type Department Care Team (Latest Contact Info) Description 01/22/2001 Outpatient Historical [facility] Medicine[address] [address] Marco Antonio Townsend MD [address] [place] [id number] Tension headache (Primary Dx) Social History Tobacco Use Types Packs/Day Years Used Date Smoking Tobacco: Never Assessed Comments Unknown Sex and Gender Information Value Date Recorded Sex Assigned at Not on file Legal Sex Female 3:49 AM [employer] Gender Identity Not on file Sexual Orientation Not on file documented as of this encounter Plan of Treatment Not on file documented as of this encounter Visit Diagnoses Diagnosis Tension headache- Primary documented in this encounter Care Teams Loader Unloader Relationship Specialty Start Date End Date Danial Carmichael MD PCP - General Family Practice 11/26/12 06/26/18 documented as of this encounter
--- OUTSIDE RECORDS SUMMARY | 2025-07-23 11:55 | XMS_ITS | Encounter Summary ---
Author Organization [facility] Address [address] [place] [address] Care Team Providers Care Stained Glass Joiner Name Role Phone Danial Carmichael MD Primary Care Provider [phone]- [phone] Encounter Details Date Type Department Care Team (Late st Contact Info) Description 11/26/2012 Ancillary Orders [facility] Services [address] [id number] Danial Carmichael MD [address] [place] [address] Empyema (CMS/HCC) (Primary Dx) Social History Tobacco Use Types Packs/Day Years Used Date Smoking Tobacco: Former Cigarettes 0 Q uit: 06/14/2008 Alcohol Use Standard Drinks/Week Comments No 0 (1 standard drink = 0.6 oz pur e alcohol) Comments No Sex and Gender Information Value Date Recorded Sex Assigned at Not on file 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 Exam: XR CHEST PA AND LATERAL Date/Time of Exam: Nov 26, 2012 02:10:00 PM Reason For Exam: Empyema without mention of fistula. Comparisons: None. Findings: Heart size and mediastinal silhouette appear within normal limits. Calcified granuloma is present in the right lower lung zone. Left thoracic rib deformities are identified. Lungs are clear without evidence for effusion, edema or infiltrates. No evidence for pneumothorax. Mild degenerative changes of the thoracic spine are seen. Impressions: 1. No acute cardiopulmonary disease. tjb - uploaded from [employer]- Narrative Procedure Note Enoc Soto MD - 11/26/2012 IMPRESSION IMPRESSION: See report below. Exam: XR CHEST PA AND LATERAL Date/Time of Exam: Nov 26, 2012 02:10:00 PM Reason For Exam: Empyema without mention of fistula. Comparisons: None. Findings: Heart size and mediastinal silhouette appear within normal limits. Calcified granuloma is present in the right lower lung zone. Left thoracic rib deformities are identified. Lungs are clear without evidence for effusion, edema or infiltrates. No evidence for pneumothorax. Mild degenerative changes of the thoracic spine are seen. Impressions: 1. No acute cardiopulmonary disease. tjb - uploaded from [employer]- Danial Carmichael MD DIAGNOSTIC IMAGING ORDERAB LES Final Result documented in this encounter Visit Diagnoses Diagnosis Empyema (CMS/HCC) Empyema without mention of fistula Empyema (CMS/HCC)- Primary Empyema without mention of fistula documented in this encounter Care Teams Stained Glass Joiner Relationship Specialty Start Date End Date Danial Carmichael MD PCP - General Family Practice 11/26/12 06/26/18 documented as of this encounter
== END 2025-07-23 10:41 | disposition home or self-care (01) ==
LOC: ANHFOHIMG 10:41
PROVIDERS: PCP Family Medicine; Visit Provider Family Medicine
DX: N63.0 Unspecified lump in unspecified breast (principal); R92.2 Inconclusive mammogram
CPT/HCPCS: 77062; 77066; G0279

== ENCOUNTER 2025-08-10 10:52 | Emergency (ER) | payer MEDICARE, MEDICAID, SELFPAY ==
[2025-08-10 11:01] VITALS: BP 148/85; PULSE 81; RESP 16; TEMP 36.4; O2SAT 97
--- NOTE | 2025-08-10 11:33 | ED.WOUNDLAC ---
HPI - Wound/Laceration General Chief Complaint: Wound/Laceration Stated Complaint: sore on abdomen Time Seen by Provider: 08/10/25 11:35 Source: patient, RN notes reviewed and old records reviewed Mode of arrival: ambulatory Limitations: no limitations History of Present Illness HPI narrative: 64-year-old female presents to the [facility] wanting to be evaluated before she goes out of town for a sore to the left lower abdomen. States that she noticed it as a sore 2 days ago. Has been keeping a Band-Aid on it. Scabbed area 0.5 cm by 0.5 cm left lower quadrant with pink not raised area of 1 and half by 2 cm. Area is not warm to touch. No drainage. Patient does report that the wound does look better than it did yesterday. Onset (ago): day(s) (2) Treatments prior to arrival: bandage Related Data Home Medications ?Medication ?Instructions ?Recorded ?Confirmed ?Last Taken ?Type omeprazole 20 mg capsule,delayed 20 mg PO DAILY 02/25/25 06/24/25 Unknown History release cholecalciferol (vitamin D3) 50 2,000 unit PO DAILY 08/10/25 Unknown History mcg (2,000 unit) capsule Allergies Allergy/AdvReac Type Severity Reaction Status Date / Time hydrocodone Allergy Itching & Verified 08/10/25 11:06 SOB Review of Systems Review of Systems: All systems reviewed & are unremarkable except as noted in HPI and below Constitutional: Constitutional: Reports no additional constitutional complaints ENT: Reports system reviewed and no additional complaints, except as documented Cardiovascular: Cardiovascular: Reports no additional cardiovascular complaints, Denies chest pain and Denies dyspnea Respiratory: Respiratory: Reports no additional respiratory complaints, Denies chest congestion, Denies cough and Denies dyspnea Musculoskeletal: Musculoskeletal: Reports no additional musculoskeletal complaints Integumentary/Breasts: Skin/Breast: Reports as per HPI PMFSH Past Medical History Medical History Degenerative arthritis of knee, bilateral Bronchial asthma Osteoarthritis Cataract Surgical History Surgical History H/O left breast biopsy 2020 History of knee surgery bilateral knee scopes History of cataract extraction History of ear surgery History of hand surgery left hand ganglion cyst removal History of hysterectomy History of lung surgery Family History Family History Sibling Cancer Father Heart disease CKD (chronic kidney disease) Mother No problems noted. Social History Social History Smoking packs per day: 1.5 Smoking cigarettes per day: 30.0 Years smoked: 30 Smoking pack-years: 45.00 Smoking status: Former smoker Tobacco type: cigarettes Second hand tobacco smoke exposure: Yes Smoking end date: 02/18/08 Additional smoking assessment comments: DENIES ANY FORM OF TOBACCO USE Alcohol intake: current Drinks per week: 42 Alcohol use details: BEER Substance use: never Substance use type: does not use Current Housing: Decline to Answer Concerned About Future Housing: Decline to Answer Difficulty Paying Gas/Electric Bills: Decline to Answer Difficulty Paying for Meds: Decline to Answer Currently Unemployed: Decline to Answer Education: Decline to Answer Difficulty w/ Childcare or Family Care: Decline to Answer Living arrangements: with family Additional living arrangements comments: Lives with boyfriend and his mother Occupation/Education: occupation Additional occupation/education comments: [employer] Gender identity (if verbalized by the patient): Female Sexual Orientation (if Verbalized by the Patient): Straight or Heterosexual Spiritual care concerns: No Comments At the time of my signature, I reviewed and agree with the nursing past medical, surgical, social, and family history. There is no relevant family history pertinent to the patient complaint. Exam Const: General: cooperative, healthy appearing, comfortable, no acute distress, well developed, alert and well nourished Nutritional Appearance: well nourished and obese Orientation/consciousness: patient oriented x3 Limitations: no limitations HENMT: Head: normal to inspection Eyes: General: appearance normal, both eyes and all related structures Alignment and Position: alignment normal Neck: Neck: normal visual inspection, full ROM, no lymphadenopathy and no meningeal signs Chest: Chest palpation & inspection: normal inspection of the chest Resp: Effort & Inspection: normal respiratory effort and able to speak in complete sentences Cardio: Rate: regular rate Skin: General skin exam: normal color and no rashes or lesions noted Full body images:  1. 1/2 x 2 pink area, not raised, no fluctuance, not warm to touch. Scab center 0.5 x 0.5 cm Neuro: General: patient oriented x3, gait normal, moves all extremities and no meningeal signs Cognition (Neuro): normal cognition Speech: normal speech Gait exam (Neuro): Normal gait present Extrem: General: normal to inspection, full ROM, capillary refill normal and normal gait Psych: Appearance: grossly normal and well kempt Mental Status: mental status grossly normal Speech and movement: Normal speech and movement present and Clear speech present Affect: normal affect Attitude: cooperative Course Course Level of Care: Express Care Visit Vital Signs Vital signs: Vital Signs Temperature 97.6 F 08/10/25 11:01 Pulse Rate 81 08/10/25 11:01 Respiratory Rate 16 08/10/25 11:01 Blood Pressure 148/85 H 08/10/25 11:01 Pulse Oximetry 97 08/10/25 11:01 Oxygen Delivery Room Air 08/10/25 11:01 Temperature 97.6 F 08/10/25 11:01 Pulse Rate 81 08/10/25 11:01 Respiratory Rate 16 08/10/25 11:01 Blood Pressure 148/85 H 08/10/25 11:01 Pulse Oximetry 97 08/10/25 11:01 Oxygen Delivery Room Air 08/10/25 11:01 reviewed MDM MDM Narrative Medical decision making narrative: patient sitting in exam room. Patient is nontoxic, vitals stable. Patient presents with a scabbed area, pink area without signs of cellulitic changes. No systemic issues. Patient appropriate for outpatient treatment with close follow-up Discharge instructions reviewed with patient, as well as provided in writing per nursing staff. The instructions also include specific and strict return/GO TO THE ER as well as f/u information. All questions have been answered, and the patient deny any further questions with discharge and discharge plan. Some parts of this dictation were generated by voice recognition software and may contain typographical and/or grammatical inaccuracies. Differential Diagnosis Differential Diagnosis: Differential diagnostic considerations for skin/abscess/foreign body issues include abscess of skin or subcutaneous tissue, viral exanthem, dermatophytosis, urticaria, herpes zoster, allergic reaction to drug, cellulitis, eczema, insect bites, impetigo, contact dermatitis, vasculitis. Discharge Plan Discharge Clinical Impression: Superficial wound Patient Disposition: Home Condition: Stable Instructions: Antibiotic Form, Acute Wounds (ED) Additional Instructions: keep area clean and dry. Wash with warm soapy water twice daily, pat dry. Apply scant amount of Mupirocin Today your blood pressure was 148/85. Please follow-up with primary care provider within 2 weeks Patient Language: Icelandic Prescriptions: New mupirocin [Centany] 2 % ointment 1 applic topical BID Qty: 15 0RF No Action cholecalciferol (vitamin D3) 50 mcg (2,000 unit) capsule 2,000 unit PO DAILY omeprazole 20 mg capsule,delayed release(DR/EC) 20 mg PO DAILY Follow-up/Referrals: Cooper Banda MD [Primary Care Provider, Family Practice] Time of Disposition: 11:50
== END 2025-08-10 12:03 | disposition home or self-care (01) ==
PROVIDERS: Emergency Provider Nurse Practitioner; PCP Family Medicine
DX: S30.92XA Unspecified superficial injury of abdominal wall, initial encounter (principal); X58.XXXA Exposure to other specified factors, initial encounter; Z87.891 Personal history of nicotine dependence; M17.0 Bilateral primary osteoarthritis of knee
CPT/HCPCS: 99213; G0463